=== PATIENT | female | born 1935 | race Caucasian/White ===

== ENCOUNTER 2020-05-17 19:44 | Observation (INO) | payer OTHER, SELFPAY ==
--- NOTE | ~2020-05-17 | XR_ITS ---
EXAMINATION: XR chest 1V portable DATE: 05/17/2020 20:32 INDICATION: Fall. TECHNIQUE: A single frontal view of the chest was obtained. COMPARISON: Chest 2 views 11/28/2016 FINDINGS: The chest demonstrates clear lungs without pneumonia, pleural effusion, or pneumothorax. Ca rdiomegaly is noted. IMPRESSION: 1. Cardiomegaly. Reviewed, dictated and finalized at location A. URCING CONSULTANT IMPRESSION: 1. Cardiomegaly.
--- NOTE | ~2020-05-17 | CT_ITS ---
EXAMINATION: CT brain wo con DATE: 05/17/2020 20:20 INDICATION: Fall. TECHNIQUE: Computed tomography (CT) of the head was performed without intravenous contrast. The mA wa s adjusted according to patient size. Iterative reconstruction technique was employed. The dose-lengt h product was 605.33 mGy-cm. COMPARISON: Head CT 01/08/2015 FINDINGS: There is an old infarct involving the left basal ganglia and internal capsule. There is no intracranial hemorrhage, acute infarction, or abnormal intracranial mass lesion. There is ex vacuo di latation of body of left lateral ventricle. The orbits are normal. There are mucous retention cysts i n the maxillary sinuses. There are trace mastoid effusions. IMPRESSION: 1. 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 Reviewed, dictated and finalized at location A. ING ROUTE DRIVER
--- NOTE | ~2020-05-17 | CT_ITS ---
EXAMINATION: CT pelvis wo con DATE: 05/17/2020 21:21 INDICATION: Left hip pain. TECHNIQUE: Computed tomography (CT) of the pelvis was performed without intravenous contrast. Automat ed exposure control and iterative reconstruction technique were employed. The dose-length product was 294.72 mGy-cm. COMPARISON: CT abdomen and pelvis 10/07/2011, pelvis and left hip radiographs 05/17/2020 FINDINGS: Stool distends the rectum. Bone alignment is normal. No fracture. There is severe lumbar sp ondylosis. There is moderate right hip osteoarthritis and severe left hip osteoarthritis. IMPRESSION: 1. Moderate right hip osteoarthritis and severe left hip osteoarthritis. Reviewed, dictated and finalized at location A. GE FISHERMAN
--- NOTE | ~2020-05-17 | CT_ITS ---
EXAMINATION: CT cervical spine wo con DATE: 05/17/2020 20:21 INDICATION: Fall. TECHNIQUE: Computed tomography (CT) of the cervical spine was performed without intravenous contrast. Automated exposure control and iterative reconstruction technique were employed. The dose-length pro duct was 371.72 mGy-cm. COMPARISON: CT cervical spine 01/01/2010 FINDINGS: There is 4 degrees dextrocurvature of cervicothoracic spine. Vertebral body heights are nor mal. There is mildly decreased disc height at C3-C4 and C5-C6. Osteopenia is noted. The following dis c levels are specifically discussed: C2-C3: There is no uncovertebral joint osteoarthritis. There is severe right and moderate left facet joint osteoarthritis. There is no neural foraminal stenosis. There is no central canal stenosis. C3-C4: There is severe bilateral uncovertebral joint osteoarthritis. There is severe bilateral facet joint osteoarthritis. There is mild bilateral neural foraminal stenosis. There is mild central canal stenosis. C4-C5: There is no uncovertebral joint osteoarthritis. There is moderate right and severe left facet joint osteoarthritis. There is mild left neural foraminal stenosis. There is no central canal stenosi s. C5-C6: There is no uncovertebral joint osteoarthritis. There is severe bilateral facet joint osteoart hritis. There is mild left neural foraminal stenosis. There is no central canal stenosis. C6-C7: There is no uncovertebral joint osteoarthritis. There is mild right and severe left facet join t osteoarthritis. There is mild left neural foraminal stenosis. There is no central canal stenosis. C7-T1: There is no uncovertebral joint osteoarthritis. There is severe bilateral facet joint osteoart hritis. There is mild bilateral neural foraminal stenosis. There is no central canal stenosis. IMPRESSION: 1. No fracture. 2. Mild cervical spondylosis. Reviewed, dictated and finalized at location A. LY PRACTICE PHYSICIAN ASSISTANT
--- NOTE | ~2020-05-17 | XR_ITS ---
EXAMINATION: XR hip LT 2V w AP pelvis DATE: 05/17/2020 20:32 INDICATION: Left hip pain. TECHNIQUE: An anteroposterior view of the pelvis and 2 views of left hip were obtained. COMPARISON: Pelvis radiograph 03/06/2011 FINDINGS: Bone alignment is normal. No fracture. There is mild right hip osteoarthritis and severe le ft hip osteoarthritis. There is severe lumbar spondylosis. IMPRESSION: 1. Mild right hip osteoarthritis and severe left hip osteoarthritis. Reviewed, dictated and finalized at location A. LETTER CARRIER
--- NOTE | 2020-05-17 19:45 | ECG_ITS ---
Measurements Intervals [place] Rate: 97 P: -66 HI: 127 QRS: 25 QRSD: 82 T: 0 QT: 368 QTc: 470 Interpretive Statements PROBABLY MULTIFOCA ATRIAL TACHYCARDIA (BASELINE ARTIFACT) ATRIAL PREMATURE COMPLEXES BORDERLINE T WAVE ABNORMALITY- ANT/INF LEADS BASELINE ARTIFACT- I, II, III, AVR, AVL, AVF, V1-V6 ABNORMAL ECG Electronically Signed On 05-17-2020 21:18:40 SR. MANAGER by Davion Baldwin D.O.
--- NOTE | 2020-05-17 19:46 | ED.GENADULT ---
HPI - General Adult General Chief complaint: Fall <Tarik Shoemaker DO - Last Filed: 05/17/20 22:48> Stated complaint: fall <Tarik Shoemaker DO - Last Filed: 05/17/20 22:48> Source: RN notes reviewed <Tarik Shoemaker DO - Last Filed: 05/17/20 22:48> History of Present Illness HPI narrative: Patient presents emergency department from home via EMS for fall patient states that this morning she went to go put her newspaper into the recycling bin and slipped and fell she states that time she had left hip pain is been unable to get up since that time her neighbors found her today and called EMS the patient denies any other trauma or injury other than skin tears over the left and right upper extremities she denies any fevers or chills chest pain shortness of breath or any other symptoms states she is unsure of her last tetanus shot <Tarik Shoemaker DO - Last Filed: 05/17/20 22:48> Related Data Allergies/adverse reactions: Allergies Allergy/AdvReac Type Severity Reaction Status Date / Time Quinolones Allergy Mild Verified 06/12/15 18:42 ciprofloxacin Allergy Unknown Verified 03/06/11 08:17 penicillin G Allergy Unknown Verified 03/06/11 08:17 Penicillins Allergy Unknown Verified 01/01/10 09:55 tetracycline Allergy Unknown Verified 10/22/14 09:14 <Tarik Shoemaker DO - Last Filed: 05/17/20 22:48> Review of Systems Review of Systems: Narrative: Gen.: Denies fevers or chills Eyes: Denies eye pain or visual change ENT: Denies congestion Respiratory: Denies shortness of breath or cough CV: Denies chest pain or palpitations GI: Denies abdominal pain nausea, emesis or diarrhea Musculoskeletal: See HPI Neuro: Denies numbness, tingling, weakness or focal weakness Skin: Reports skin tears Except as documented, all other systems reviewed and negative <Tarik Shoemaker DO - Last Filed: 05/17/20 22:48> PMFSH Past Medical History Medical History: Medical History (Updated 05/17/20 @ 22:48 by Tarik Shoemaker DO) Hypertension <Tarik Shoemaker DO - Last Filed: 05/17/20 22:48> Family History Family History: Family History (Updated 10/18/15 @ 23:19 by DOCTOR UNKNOWN) Father Cerebrovascular accident Patient's father is Mother Family history of malignant neoplasm of breast in first degree relative Patient's mother is <Tarik Shoemaker DO - Last Filed: 05/17/20 22:48> Social History Social History: Social History Smoking status: Current every day smoker Alcohol intake: current <Tarik Shoemaker DO - Last Filed: 05/17/20 22:48> Exam Narrative: Exam Narrative: APPEARANCE: No acute distress, nontoxic, resting in bed EYES: EOMI, PERRL HEENT: Normocephalic, atraumatic, OMM RESPIRATORY: No respiratory distress Clear to auscultation bilaterally with no rhonchi wheezing or rales. CARDIOVASCULAR: Regular rate and rhythm without murmurs rubs or gallops. ABDOMINAL: Soft, nontender, nondistended, no rebound or guarding MUSCULOSKELETAl: Moves all extremities. No clubbing, cyanosis or edema. Tender palpation of the left lateral and anterior hip pain with flexion of the hip no tenderness left knee or ankle no tenderness of the bilateral upper extremities in the right lower extremity bilateral dorsalis pedis pulse 2+, left lower extremity neurovascular intact NEURO: Awake and alert x 4. Following commands, speech normal, no focal deficits SKIN:: Warm, dry. Skin tears over the left lateral forearm right forearm and right dorsal hand with mild venous bleeding no foreign bodies no signs of infection 2.5 cm laceration of the right dorsal hand with mild venous bleeding no foreign body PSYCHIATRIC: Normal affect/mood, <Tarik Shoemaker DO - Last Filed: 05/17/20 22:48> Course Course Emergency Course: Patient continues to have left hip pain CT pelvis will be obtained at this
[2020-05-17 19:51] VITALS: BP 161/119; PULSE 108; RESP 24; TEMP 35.7; O2SAT 98
[2020-05-17 20:00] LABS: Basophils Percent Auto 0.1 % (0.2-1.2); Hemoglobin 12.7 g/dL (12.0-15.0); Immature Granulocyte Absolute 0.07 K/mm3 (0.00-0.031); Immature Granulocyte Percent A 0.5 % (0-0.5); Lymphocytes Absolute Auto 1.08 K/mm3 (0.9-3.2); Lymphocytes Percent Auto 7.1 % (18.3-44.2); Mean Corpuscular HGB Conc 33.4 g/dl (32-36); Mean Corpuscular Hemoglobin 27.4 pg (26-34); Mean Corpuscular Volume 82.1 fl (80-100); Mean Platelet Volume 10.8 fl (7.4-10.4); Monocytes Percent Auto 6.7 % (2.6-8.5); Neutrophils Absolute Auto 13.1 K/mm3 (1.3-6.7); Neutrophils Percent Auto 85.6 % (45.5-73.1); Platelet Count Result 207 k/mm3 (150-375); Red Blood Count 4.63 M/mm3 (4.2-5.4); Red Cell Distribution Width 13.7 % (11.5-14.5); White Blood Count 15.3 K/mm3 (4.5-10.0)
[2020-05-17 20:10] LABS: Partial Thromboplastin Time 29.2 SECONDS (22.3-36.8); Prothrombin Time 13.9 Seconds (11.1-14.7)
[2020-05-17 20:33] LABS: Alanine Aminotransferase 24 U/L (4-35); Albumin Level 4.1 g/dL (3.5-5.1); Alkaline Phosphatase 116 U/L (38-126); Anion Gap 8 mmol/L (8-16); Aspartate Amino Transferase 41 U/L (14-36); Bilirubin,Total 0.7 mg/dL (0.2-1.3); Blood Urea Nitrogen 28 mg/dL (7-17); Calcium 10.2 mg/dL (8.4-10.2); Carbon Dioxide 24 mmol/L (22-30); Chloride 107 mmol/L (98-107); Creatine Kinase 578 U/L (30-135); Estimated Glomerular Filt Rate 60; Glucose 125 mg/dL (65-105); Potassium 4.7 mmol/L (3.4-5.0); Sodium 139 mmol/L (137-145)
[2020-05-17] MEDS: TETANUS,DIPHTHERIA,AC PERTUSSIS ADULT (0.5 ML) BOOSTRIX IM (20:40)
[2020-05-17] MEDS: SODIUM CHLORIDE 0.9% IV 1,000 ML 999 ML IV CONT (20:52)
[2020-05-17 20:58] VITALS: BP 189/66; PULSE 82; RESP 22; O2SAT 99
[2020-05-17 21:19] LABS: Add Urine Microscopic? YES; Appearance Urine Cloudy (Clear); Bacteria Urine 1+ /hpf; Bilirubin Urine Negative (Negative); Blood Urine 2+ (Negative); Color Urine Yellow (Yellow); Glucose Urine UA Negative (Negative); Ketones Urine 1+ mg/dL (Negative); Leukocyte Esterase Ur 3+ LEU/UL (Negative); Nitrate Urine Negative (Negative); Protein Urine 3+ mg/dL (Negative); Specific Grav Ur 1.014 (1.001-1.035); Squamous Epithelial Cell Urine Rare /hpf (Few); Urobilinogen Urine Negative mg/dL (<2.0); WBC Urine >75 /hpf
[2020-05-17 22:17] VITALS: BP 173/90; PULSE 84; RESP 20; O2SAT 97
[2020-05-17 22:46] LABS: Lactic Acid Reflex 1.4 mmol/L (0.7-2.1)
[2020-05-17 23:21] VITALS: BP 153/88; PULSE 106; RESP 20; O2SAT 99
--- NOTE | 2020-05-17 23:30 | PM.IMHP ---
H&P: HPI History of Present Illness Date/Time: 05/17/20 23:30 Chief Complaint: Acute fall today in her garage and left hip pain+ Narrative: This is a pleasant 84 year old female who is known to live at home alone and presented to the hospital today after suffering a fall at home. Apparently she was trying to put her newspaper into the recycling bin in the garage and was leaning forward when she lost her balance and fell on her left side. She wasn't sure if she suffered and head trauma but she denies any loss of consciousness, tongue biting, loss of urine, or other focal neurological symptoms. EMS was called as the patient could not ambulate. She denies any recent fevers, chills, cough, shortness of breath, chest pain, palpitations, abdominal pain, nausea, vomiting, dysuria, hematuria, diarrhea, rectal bleeding, or LE swelling. The patient was evaluated in the ER today and urinalysis was grossly abnormal. She was complaining of left hip pain and CT pelvis did not demonstrate any acute fractures. No other complaints. Review of Systems Review of Systems: All systems reviewed & are unremarkable except as noted in HPI and below PMFSH Past Medical History Medical History Hypertension Family History Family History Father Cerebrovascular accident Patient's father is Mother Family history of malignant neoplasm of breast in first degree relative Patient's mother is Social History Social History Smoking status: Former smoker Alcohol intake: never Substance use: never Substance use type: does not use Gender identity (if verbalized by the patient): Female Spiritual care concerns: No Meds Home Medications and Allergies Home Medications Medication Instructions Recorded Confirmed Type metoprolol succinate 25 mg PO DAILY 05/17/20 05/17/20 History pravastatin 40 mg PO QPM 05/17/20 05/17/20 History Allergies Allergy/AdvReac Type Severity Reaction Status Date / Time Quinolones Allergy Mild unsure Verified 05/17/20 23:55 ciprofloxacin Allergy Unknown unsure Verified 05/17/20 23:55 penicillin G Allergy Unknown unsure Verified 05/17/20 23:55 Penicillins Allergy Unknown unsure Verified 05/17/20 23:55 tetracycline Allergy Unknown unsure Verified 05/17/20 23:55 Vital Signs Vital Signs - 24 hr 05/17/20 19:51 05/17/20 20:58 05/17/20 22:17 Temperature 35.7 C L Pulse Rate 108 H 82 84 Respiratory Rate 24 H 22 H 20 Blood Pressure 161/119 H 189/66 H 173/90 H Pulse Oximetry 98 99 97 05/17/20 23:21 Temperature Pulse Rate 106 H Respiratory Rate 20 Blood Pressure 153/88 H Pulse Oximetry 99 Exam Const: General: cooperative, no acute distress, alert and awake Nutritional Appearance: well nourished Orientation/consciousness: patient oriented x3 HENMT: Head: normal to inspection General nose exam: Normal external nose present Face and sinus: normal facial exam Mouth: Yes Normal oral and palatal mucosa present and Yes oropharynx normal Eyes: Periorbital: periorbital findings abnormal (ecchymosis) right Pupils: Equal, round and reactive pupils present EOM: EOMs intact bilaterally Neck: Neck: supple and no JVD Thyroid: thyroid normal Lymphatic: lymphadenopathy not noted Resp: Effort & Inspection: normal respiratory effort Auscultation: clear to auscultation bilaterally Cardio: Rate: regular rate Rhythm: regular rhythm Heart sounds: no murmurs GI: Inspection: normal to inspection Auscultation: normal bowel sounds Skin: General skin exam: normal color and no rashes or lesions noted Neuro: General: patient oriented x3 Cranial nerves: Yes CN's II-XII intact bilaterally and Yes Equal, round and reactive pupils present Speech: normal speech Motor exam (neuro): 5/5 motor strength present throug
--- NOTE | 2020-05-17 23:43 | ADMGEN ---
This patient, Janis Whittington, was admitted to Medical Room 255-. Patient/family oriented to hospital policies and general routines including ID bracelet, bed and alarms, visiting hours, pain management, procedures, bathroom and other care routines, personal items, smoking policy, room service/diet, and visiting hours. Information on how to activate the Rapid Response Team has been discussed. Patient/Family are encouraged to report perceived risks to care and to ask questions if they do not understand what they are told or what they should do.
[2020-05-18] VITALS (7 sets, daily range): BP systolic 134–179; BP diastolic 47–72; PULSE 68–89; RESP 18–20; TEMP 36.2–36.7; O2SAT 95–98; BMI 26.3
[2020-05-18] MEDS: SODIUM CHLORIDE 0.9% IV 1,000 ML 125 ML IV CONT ×2 (00:34→08:20)
[2020-05-18 05:27] LABS: Basophils Percent Auto 0.3 % (0.2-1.2); Hematocrit 34.1 % (37.0-47.0); Hemoglobin 11.2 g/dL (12.0-15.0); Immature Granulocyte Absolute 0.02 K/mm3 (0.00-0.031); Immature Granulocyte Percent A 0.2 % (0-0.5); Lymphocytes Absolute Auto 1.88 K/mm3 (0.9-3.2); Lymphocytes Percent Auto 19.3 % (18.3-44.2); Mean Corpuscular HGB Conc 32.8 g/dl (32-36); Mean Corpuscular Hemoglobin 26.7 pg (26-34); Mean Corpuscular Volume 81.4 fl (80-100); Mean Platelet Volume 10.8 fl (7.4-10.4); Monocytes Absolute Auto 0.8 K/mm3 (0.1-0.6); Monocytes Percent Auto 8.4 % (2.6-8.5); Neutrophils Percent Auto 71.8 % (45.5-73.1); Platelet Count Result 159 k/mm3 (150-375); Red Blood Count 4.19 M/mm3 (4.2-5.4); Red Cell Distribution Width 13.8 % (11.5-14.5); White Blood Count 9.7 K/mm3 (4.5-10.0)
[2020-05-18 05:45] LABS: Anion Gap 5 mmol/L (8-16); Blood Urea Nitrogen 26 mg/dL (7-17); Carbon Dioxide 24 mmol/L (22-30); Chloride 108 mmol/L (98-107); Estimated CRCL calculation 37 ml/min; Estimated Glomerular Filt Rate 60; Glucose 106 mg/dL (65-105); Sodium 137 mmol/L (137-145)
[2020-05-18] MEDS: METOPROLOL SUCCINATE EXT REL 25 MG TABCR PO (08:53)
--- NOTE | 2020-05-18 13:13 | PM.IMPN ---
Progress Note: A&P Assessment and Plan (1) Acute UTI: Code(s): N39.0 - Urinary tract infection, site not specified Status: Acute Assessment and Plan: Urinalysis abnormal on presentation with 3+ leukocyte esterase. She denies urinary symptoms. She has remained afebrile. leukocytosis has resolved. continue IV Rocephin urine culture is pending. Await results and tailor antibiotics accordingly continue gentle IV fluids (2) Sepsis: Qualifiers: Sepsis acute organ dysfunction status: without acute organ dysfunction Sepsis type: sepsis due to unspecified organism Qualified Code(s): A41.9 - Sepsis, unspecified organism Code(s): A41.9 - Sepsis, unspecified organism Status: Acute Assessment and Plan: She met criteria for sepsis on admission with leukocytosis, tachypnea, and tachycardia. BP has been stable. Lactic acid 1.4. Source of sepsis felt to be secondary to urinary tract infection. Sepsis has resolved. Continue IV Rocephin as above blood cultures pending continue gentle IV fluids monitor vital signs (3) Fall: Qualifiers: Encounter type: initial encounter Qualified Code(s): W19.XXXA - Unspecified fall, initial encounter Code(s): W19.XXXA - Unspecified fall, initial encounter Status: Acute Assessment and Plan: Patient had a mechanical fall at home in which she lost her balance and fell on her left side. She was complaining of pain in her hip and knee. She did not believe she hit her head, and head CT was negative for any acute findings. Cervical spine CT negative for fracture. Hip and pelvis x-ray negative for fracture, and pelvis CT demonstrated osteoarthritis with no acute findings. she had a 2.5 cm laceration of her right hand which was repaired with 4 nylon sutures in the ED. Currently denies hip pain and only endorses mild knee pain. Fall precautions in place. Appreciate PT/OT eval. Sutures should be removed in 10-14 days. Acetaminophen available as needed for pain. Supportive care including lidocaine patch, ice/heat as needed. (4) Hypertension: Qualifiers: Hypertension type: unspecified Qualified Code(s): I10 - Essential (primary) hypertension Code(s): I10 - Essential (primary) hypertension Status: Chronic Assessment and Plan: BP reviewed and is elevated above target, likely related to pain. Last BP 155/72. continue metoprolol IV hydralazine available as needed monitor blood pressure trends and adjust medication regimen as needed Additional Plan Patient had one episode of loose stool today. Likelyrelated to antibiotic therapy. Added probiotic and will monitor stool patterns. Based on consistency of stool and lack of clinical signs/symptoms, do not feel that further stool testing is warranted at this time. C. diff unlikely. Discussed with care coordination. Patient and family hoping for discharge home with home health. Family plans to set up life-alert for patient. Hopeful discharge tomorrow pending results of urine culture. Subjective Date/time seen: 05/18/20 13:13 Interval history: Date of service: 05/18/2020 Janis Whittington is an 84-year-old female with a history of hypertension who is seen in follow-up for suspected UTI and after having a fall at home. She is doing okay today. She is complaining of pain in her left knee. She denies any urinary symptoms. She denies fevers or chills. Denies nausea, vomiting, or abdominal pain. No dizziness, or lightheadedness. She has been eating well. She did have some diarrhea today. She has not been out of bed to attempt ambulation yet today but she does report feeling weak. Denies shortness of breath, cough, chest pain, or palpitations. She has no additional concerns at this time. Review of Systems Review of Systems: All systems reviewed & are unremarkable except as noted in HPI and below Exam Narrati
[2020-05-18] MEDS: SODIUM CHLORIDE 0.9% IV 1,000 ML 75 ML IV CONT (17:34)
[2020-05-18] MEDS: PRAVASTATIN SODIUM 20 MG TABLET 40 MG PO (17:47)
[2020-05-18] MEDS: SACCHAROMYCES BOULARDII 250 MG CAPSULE PO (17:47)
[2020-05-19 05:49] LABS: Anion Gap 5 mmol/L (8-16); Blood Urea Nitrogen 17 mg/dL (7-17); Calcium 8.8 mg/dL (8.4-10.2); Carbon Dioxide 20 mmol/L (22-30); Chloride 112 mmol/L (98-107); Estimated CRCL calculation 42 ml/min; Estimated Glomerular Filt Rate > 60; Glucose 121 mg/dL (65-105); Potassium 3.9 mmol/L (3.4-5.0); Sodium 137 mmol/L (137-145)
[2020-05-19 06:00] VITALS: BP 135/58; PULSE 66; RESP 16; TEMP 36.7; O2SAT 98
[2020-05-19] MEDS: SODIUM CHLORIDE 0.9% IV 1,000 ML 75 ML IV CONT (06:23)
[2020-05-19 07:07] LABS: Hematocrit 32.7 % (37.0-47.0); Hemoglobin 10.8 g/dL (12.0-15.0); Mean Corpuscular Hemoglobin 27.3 pg (26-34); Mean Corpuscular Volume 82.8 fl (80-100); Mean Platelet Volume 10.6 fl (7.4-10.4); Platelet Count Result 138 k/mm3 (150-375); Red Blood Count 3.95 M/mm3 (4.2-5.4); White Blood Count 8.2 K/mm3 (4.5-10.0)
[2020-05-19 08:51] VITALS: PULSE 70; RESP 16; O2SAT 98
[2020-05-19] MEDS: SACCHAROMYCES BOULARDII 250 MG CAPSULE PO (08:51)
[2020-05-19] MEDS: METOPROLOL SUCCINATE EXT REL 25 MG TABCR PO (08:51)
--- NOTE | 2020-05-19 11:04 | PM.DS ---
DS: Admitting Diagnosis Admitting Diagnosis Admitting Diagnosis: Fall, UTI DS: Discharge Diagnosis Discharge Diagnosis (1) Acute UTI: Code(s): N39.0 - Urinary tract infection, site not specified Status: Acute Assessment and Plan: Date of Admission 05/17/20 Date of Discharge/DOS 05/19/20 Ms. Whittington is an 84 yo F who presented to the ED for evaluation of left hip pain after a fall at home. She described she was carrying a box in her garage when she lost her balance and fell. She was unsure of any head injury or loss of consciousness. She did sustain a laceration to right hand which was closed with 4 sutures in the ED. 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 CT C spine, CT pelvis, XR pelvis/hips show no acute fractures. She was treated for UTI with IV ceftriaxone and discharged with oral bactrim to complete the course (limited options based on sensitivity report and patient allergies). She was hydrated with IV fluids. She worked with PT/OT and was felt to be a good candidate to continue therapy with home health. She was hemodynamically stable for discharge on 05/19/20 with instructions to follow up with PCP. She was also educated to f/u with PCP or return to ED in 7-10 days for suture removal. (2) Sepsis: Qualifiers: Sepsis acute organ dysfunction status: without acute organ dysfunction Sepsis type: sepsis due to unspecified organism Qualified Code(s): A41.9 - Sepsis, unspecified organism Code(s): A41.9 - Sepsis, unspecified organism Status: Suspected Assessment and Plan: Source of sepsis appears to be urinary. Continue abx as above. She is improved and hemodynamically stable. (3) Fall: Qualifiers: Encounter type: initial encounter Qualified Code(s): W19.XXXA - Unspecified fall, initial encounter Code(s): W19.XXXA - Unspecified fall, initial encounter Status: Acute Assessment and Plan: See above. (4) Contusion, hip: Qualifiers: Encounter type: initial encounter Laterality: left Qualified Code(s): S70.02XA - Contusion of left hip, initial encounter Code(s): S70.00XA - Contusion of unspecified hip, initial encounter Status: Acute Assessment and Plan: Pain control as needed. (5) Hypertension: Qualifiers: Hypertension type: unspecified Qualified Code(s): I10 - Essential (primary) hypertension Code(s): I10 - Essential (primary) hypertension Status: Chronic Assessment and Plan: Elevated suspected secondary to pain, improved prior to discharge. Continue home antihypertensives. DS: Summary Hospital Course Hospital Course: See above. Time Spent with Patient Time attestation: Total time spent providing and/or coordinating discharge services: 35 minutes Exam Narrative: Exam Narrative: Ms. Whittington is A well-nourished, well-appearing 84-year-old female who is sitting up in bedside chair. she appears comfortable and is in NARD. Neuro: awake, alert and oriented x4, speech clear, no focal neuro deficits noted HEENMT: normocephalic, atraumatic, EOMI, sclerae anicteric, moist oral mucosa, tongue midline, nares patent Neck: supple, no lymphadenopathy Respiratory: clear to auscultation bilaterally, nonlabored breathing Cardio: regular rate, regular rhythm with S1-S2 Abdomen: nondistended, normoactive bowel sounds, soft, nontender to palpation, no rigidity or guarding : Extremities: no edema, erythema, cyanosis, clubbing, or tenderness to palpation, DP pulses 2+ bilaterally Skin: left knee with ecchymosis and mild edema, scattered ecchymoses of upper extremities. Right hand is wrapped with dressing c/d/i. No rashes or lesions, warm and dry
--- NOTE | 2020-05-31 08:45 | PC.NURSE ---
Blood cx are negative
== END 2020-05-19 16:37 | disposition home health service (06) ==
LOC: ANHED 21:02 → ANH2MED 22:35
PROVIDERS: Physician Assistant; Admitting Provider Family Medicine; Emergency Provider Emergency Medicine; PCP Anesthesiology; Visit Provider Physician Assistant
DX: N39.0 Urinary tract infection, site not specified (principal); S70.02XA Contusion of left hip, initial encounter; S61.411A Laceration without foreign body of right hand, initial encounter; W19.XXXA Unspecified fall, initial encounter; I10 Essential (primary) hypertension; Z87.891 Personal history of nicotine dependence; Z86.73 Personal history of transient ischemic attack (TIA), and cerebral infarction without residual deficits
CPT/HCPCS: 12001; 36415; 70450; 71045; 72125; 72192; 73502; 80048; 80053; 81001; 82550; 83605; 85025; 85027; 85610; 85730; 87040; 87077; 87086; 87088; 87186; 90471; 90715; 93005; 96361; 96365; 96366; 97116; 97161; 97165; 97535; 99285; A9270; G0378; J0696; J7030

== ENCOUNTER 2020-12-30 10:09 | Inpatient (IN) | payer OTHER, SELFPAY ==
--- NOTE | ~2020-12-30 | CT_ITS ---
EXAMINATION: CT lumbar spine wo con DATE: 12/30/2020 11:32 INDICATION: Low back pain post fall TECHNIQUE: Computed tomography (CT) of the lumbar spine was performed without intravenous contrast. A utomated exposure control and iterative reconstruction technique were employed. The dose-length produ ct was 815.32 mGy-cm. COMPARISON: None FINDINGS: Alignment is normal. Vertebral body heights are normal. No fracture. Moderate disc height loss at L3- L4 and L4-L5. There is calcified atherosclerosis of the aorta and many of the other arteries. The fol lowing disc levels are specifically discussed: T11-T12: The disc does not extend beyond the endplate margin. There is mild bilateral facet joint ost eoarthritis. There is no neural foraminal stenosis. There is no central canal stenosis. T12-L1: The disc does not extend beyond the endplate margin. There is moderate bilateral facet joint osteoarthritis. There is no neural foraminal stenosis. There is no central canal stenosis. L1-L2: Disc is bulging with small right paracentral endplate osteophyte. There is mild bilateral face t joint osteoarthritis. There is mild right neural foraminal stenosis. There is mild central canal st enosis. L2-L3: Disc is mildly bulging. There is mild bilateral facet joint osteoarthritis. There is minimal b ilateral neural foraminal stenosis. There is mild central canal stenosis. L3-L4: Disc is bulging. There is mild left and moderate right facet joint osteoarthritis. There is mo derate bilateral neural foraminal stenosis. There is mild central canal stenosis. L4-L5: Disc is bulging. There is moderate bilateral facet joint osteoarthritis. There is moderate osvaldo ateral neural foraminal stenosis. There is mild central canal stenosis. L5-S1: Disc is mildly bulging. There is moderate right and severe left facet joint osteoarthritis. Th ere is moderate right and moderate to severe left neural foraminal stenosis. There is no central arthur l stenosis. IMPRESSION: 1. Moderate lumbar spondylosis. No acute osseous abnormality. Reviewed, dictated and finalized at location A.
--- NOTE | ~2020-12-30 | XR_ITS ---
XR hip BI 2V w AP pelvis DATE: 12/30/2020 11:08 INDICATION: Fall. Pelvic and bilateral hip pain TECHNIQUE: AP pelvis. AP and lateral views of each hip. COMPARISON: May 17, 2020 AP pelvis and left hip FINDINGS: There is degenerative disc disease in the included lower lumbar and lumbosacral area. Normal alignment at the pubic symphysis and sacral iliac joints. No pelvic fracture or bone destruction is detected. There is mild right and severe left hip osteoarthritis. No fracture or dislocation, avascular necrosis or bone destruction of either hip is detected. 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
--- NOTE | ~2020-12-30 | XR_ITS ---
XR chest 2V DATE: 12/30/2020 11:08 INDICATION: Pain after fall TECHNIQUE: AP and lateral views COMPARISON: May 17, 2020 AP chest FINDINGS: Cardiomegaly. No hilar or mediastinal enlargement. Moderate elevation of right diaphragm. No pulmonary infiltrate or consolidation, pleural effusion or pulmonary vascular congestion or pneumothorax. Diffuse osteopenia. IMPRESSION: Moderate elevation right diaphragm; no active pulmonary disease Reviewed, dictated and finalized at location B.
--- NOTE | ~2020-12-30 | CT_ITS ---
EXAMINATION: CT brain wo con DATE: 12/30/2020 11:32 INDICATION: Altered mental state, confusion following a fall last night. TECHNIQUE: Computed tomography (CT) of the head was performed without intravenous contrast. The mA wa s adjusted according to patient size. Iterative reconstruction technique was employed. Exam dose: 60 5.33 mGy-cm total exam DLP. COMPARISON: May 17, 2020 CT brain FINDINGS: There is prominent central and cortical cerebral and cerebellar atrophy. Old lacunar infarct of the left basal ganglia. Bilateral carotid siphon internal carotid artery calcification and basilar and bilateral vertebral ar isabelle calcification. There is nonspecific diminished attenuation of the cerebral white matter, likely due to chronic small vessel ischemic changes. No intracranial mass lesion or hemorrhage or recent cerebrovascular accident is detected. No midline shift or mass effect. No subdural or epidural hematoma. Approximately 1.2 x 2.6 cm polypoid soft tissue density of the lower lateral right maxillary sinus. T here is mild lower anterior left maxillary sinus focal soft tissue thickening. The paranasal sinuses and mastoid air cells are otherwise unremarkable. No fracture or bone destruction of the cranial vault. IMPRESSION: Chronic lacunar infarct of left basal ganglia Cerebral atherosclerosis and chronic small vessel ischemic changes of the cerebral white matter Prominent central and cortical cerebral and cerebellar atrophy No acute intracranial finding or skull fracture Reviewed, dictated and finalized at Location A. Reviewed, dictated and finalized at location B. IMPRESSION: Chronic lacunar infarct of left basal ganglia Cerebral atherosclerosis and chronic small vessel ischemic changes of the cereb ral white matter Prominent central and cortical cerebral and cerebellar atrophy No acute intracranial finding or skull fracture
--- NOTE | ~2020-12-30 | CT_ITS ---
EXAMINATION: CT cervical spine wo con EXAM DATE: 12/30/2020 11:32 INDICATION: Fall, altered mental status. Confusion. TECHNIQUE: Spiral CT of the cervical spine was performed without contrast. Axial images were reviewe d. Coronal and sagittal reformatted images cervical spine were also reviewed. The dose-length produc t (DLP) for this examination was 183.62 mGy-cm. The exposure was tailored according to patient size (auto mA exposure control), and iterative reconstruction (ASIR) was used as additional dose reduction technique. There is no prior study for comparison. FINDINGS: There is no evidence of acute cervical fracture. The odontoid process is intact. Pre-dens space is normal. Prevertebral soft tissue is normal. There are no soft tissue abnormalities identi fied. The vertebral bodies are aligned in the AP dimension. There is moderate to severe left-sided f acet arthropathy. The vertebral bodies are aligned. IMPRESSION: 1. No acute cervical findings. Reviewed, dictated and finalized at location A.
[2020-12-30 09:50] VITALS: BP 143/75; PULSE 107; RESP 24; TEMP 36.7; O2SAT 97
--- NOTE | 2020-12-30 10:11 | ECG_ITS ---
Measurements Intervals [place] Rate: 62 P: 52 VA: 142 QRS: -9 QRSD: 80 T: 0 QT: 407 QTc: 416 Interpretive Statements SINUS RHYTHM POSSIBLE LEFT ATRIAL ENLARGEMENT BORDERLINE T WAVE ABNORMALITY- ANTEROLATERAL LEADS BASELINE ARTIFACT- I, II, III, AVR, AVL, AVF, V1-V6 BORDERLINE ECG Electronically Signed On 12-30-2020 14:39:49 CDT by Davion Baldwin D.O.
--- NOTE | 2020-12-30 10:29 | ED.AMS ---
HPI - Altered Mental Status General Chief Complaint: Altered Mental Status <Tanya Luu PA-C - Last Filed: 12/30/20 15:22> Stated Complaint: increased weakness/confusion <Tanya Luu PA-C - Last Filed: 12/30/20 15:22> Time Seen by Provider: 12/30/20 10:12 <LAMAR Dwyer Last Filed: 12/30/20 15:22> Source: patient and family <LAMAR Dwyer Last Filed: 12/30/20 15:22> Mode of arrival: EMS <LAMAR Dwyer Last Filed: 12/30/20 15:22> Limitations: altered mental status <LAMAR Dwyer Last Filed: 12/30/20 15:22> History of Present Illness HPI narrative: This is a 85 year old female that presents to the ER for altered mental status. Daughter reports patient had a fall yesterday. She had called and was unable to get ahold of her. So she went over to her house around 8pm. She found her lying on the floor in her bedroom. Unsure when she had fallen/how long she was on the floor that day. Patient did not want to be transported to the ER at that time. Daughter got her in bed. Reports this morning she went back to check on her and she was still in bed which concerned her. She appeared to be more confused than usual. She also thought that maybe this morning the left side of her face looked like it was drooping. She has been complaining of some burning with urination. She also was complaining of low back pain after her fall last night. Patient is not able to provide much history. She does not remember falling or if she hit her head. She does know where she is right now. Her only complaint is low back pain currently. Denies fever. <LAAMR Dwyer Last Filed: 12/30/20 15:22> Related Data Home Medications: Home Medications Medication Instructions Recorded Confirmed metoprolol succinate 25 mg PO DAILY 05/17/20 05/17/20 pravastatin 40 mg PO QPM 05/17/20 05/17/20 <LAMAR Dwyer Last Filed: 12/30/20 15:22> Allergies/Adverse Reactions: Allergies Allergy/AdvReac Type Severity Reaction Status Date / Time Quinolones Allergy Mild unsure Verified 12/30/20 13:21 ciprofloxacin Allergy Unknown unsure Verified 12/30/20 13:21 penicillin G Allergy Unknown unsure Verified 12/30/20 13:21 Penicillins Allergy Unknown unsure Verified 12/30/20 13:21 tetracycline Allergy Unknown unsure Verified 12/30/20 13:21 <Tanya Luu PA-C - Last Filed: 12/30/20 15:22> Review of Systems Review of Systems: ROS unobtainable: Yes unobtainable due to mental status <Tanya Luu PA-C - Last Filed: 12/30/20 15:22> [facility] Past Medical History Medical History: Medical History (Updated 12/30/20 @ 15:19 by Tanya Luu PA-C) History of hypertension Hypertension <Tanya Luu PA-C - Last Filed: 12/30/20 15:22> Family History Family History: Family History Father Cerebrovascular accident Patient's father is Mother Family history of malignant neoplasm of breast in first degree relative Patient's mother is <Tanya Luu PA-C - Last Filed: 12/30/20 15:22> Social History Social History: Social History Smoking status: Former smoker Alcohol intake: never Substance use: never Substance use type: does not use Gender identity (if verbalized by the patient): Female Spiritual care concerns: No <Tanya uLu PA-C - Last Filed: 12/30/20 15:22> Exam Narrative: GENERAL: Elderly, well-nourished, and in no acute distress. HEAD: Normocephalic, atraumatic. EYES: PERRLA and EOMI. ENT: Nares clear, no rhinorrhea or epistaxis. Mucous membranes moist. Oropharynx without tonsillar hypertrophy exudate or other lesions. Bilateral TMs pearly díaz non-bulging NECK: Supple. No adenopathy or masses. CHEST: Clear to auscultation. No respiratory distress. No wheezes rales
--- NOTE | 2020-12-30 11:08 | PC.NURSE ---
Pt in imaging at this time.
[2020-12-30 11:30] LABS: Add Urine Microscopic? YES; Appearance Urine Turbid (Clear); Bacteria Urine 3+ /hpf; Bilirubin Urine Negative (Negative); Blood Urine 3+ (Negative); Color Urine Yellow (Yellow); Glucose Urine UA Negative (Negative); Ketones Urine Negative (Negative); Leukocyte Esterase Ur 3+ LEU/UL (Negative); Mucus Urine Heavy /lpf; Nitrate Urine Negative (Negative); Protein Urine 3+ mg/dL (Negative); RBC Urine >75 /hpf (0-2); Specific Grav Ur 1.016 (1.001-1.035); Squamous Epithelial Cell Urine Moderate /hpf (Few); Urobilinogen Urine Negative mg/dL (<2.0); WBC Clumps Urine Present /HPF; WBC Urine >75 /hpf
--- NOTE | 2020-12-30 11:50 | PC.NURSE ---
C-collar removed per ERP VRBO.
[2020-12-30] MEDS: SODIUM CHLORIDE 0.9% IV 500 ML 999 ML IV CONT ×2 (11:51→13:36)
[2020-12-30 13:20] VITALS: BP 154/78; PULSE 71; RESP 19; O2SAT 99
[2020-12-30 13:49] LABS: Creatine Kinase 207 U/L (30-135); Lactic Acid Reflex 1.2 mmol/L (0.7-2.1)
[2020-12-30 13:54] LABS: Alanine Aminotransferase 18 U/L (4-35); Alkaline Phosphatase 102 U/L (38-126); Anion Gap 7 mmol/L (8-16); Aspartate Amino Transferase 32 U/L (14-36); Bilirubin,Total 0.8 mg/dL (0.2-1.3); Blood Urea Nitrogen 20 mg/dL (7-17); CRP 1.8 mg/dL (<1.0); Calcium 10.2 mg/dL (8.4-10.2); Carbon Dioxide 28 mmol/L (22-30); Chloride 104 mmol/L (98-107); Estimated Glomerular Filt Rate > 60; Glucose 106 mg/dL (65-110); Potassium 4.3 mmol/L (3.4-5.0); Sodium 139 mmol/L (137-145)
--- NOTE | 2020-12-30 14:39 | PC.NURSE ---
Informed GEO Luu that pt has an allergy to Penicillin( Rocephin was ordered for pt). GEO Luu states that pt has had Rocephin in past and that it is ok to give.
[2020-12-30 14:51] LABS: Basophils Percent Auto 0.2 % (0.2-1.2); Eosinophils Percent Auto 0.1 % (0-4.4); Immature Granulocyte Absolute 0.03 K/mm3 (0.00-0.031); Immature Granulocyte Percent A 0.4 % (0-0.5); Lymphocytes Absolute Auto 1.63 K/mm3 (0.9-3.2); Mean Corpuscular HGB Conc 31.7 g/dl (32-36); Mean Corpuscular Hemoglobin 26.3 pg (26-34); Mean Platelet Volume 9.9 fl (7.4-10.4); Monocytes Absolute Auto 0.4 K/mm3 (0.1-0.6); Monocytes Percent Auto 4.8 % (2.6-8.5); Neutrophils Absolute Auto 6.1 K/mm3 (1.3-6.7); Neutrophils Percent Auto 74.5 % (45.5-73.1); Platelet Count Result 198 k/mm3 (150-375); Red Blood Count 4.94 M/mm3 (4.2-5.4); Red Cell Distribution Width 14.3 % (11.5-14.5); White Blood Count 8.2 K/mm3 (4.5-10.0)
[2020-12-30 16:30] VITALS: BMI 28.0
--- NOTE | 2020-12-30 16:30 | PC.NURSE ---
This patient, Janis Whittington, was admitted to 3 [facility] Surg Room 323-01. Patient/family oriented to hospital policies and general routines including ID bracelet, bed and alarms, visiting hours, pain management, procedures, bathroom and other care routines, personal items, smoking policy, room service/diet, and visiting hours.Report received from Bria PORTILLO Information on how to activate the Rapid Response Team has been discussed. Patient/Family are encouraged to report perceived risks to care and to ask questions if they do not understand what they are told or what they should do.
[2020-12-30 17:58] VITALS: BP 142/74; PULSE 73; RESP 16; TEMP 36.6; O2SAT 95
[2020-12-30 22:00] VITALS: BP 173/88; PULSE 120; RESP 20; TEMP 36.6; O2SAT 94
--- NOTE | 2020-12-30 23:25 | PM.IMHP ---
H&P: HPI History of Present Illness Date/Time: 12/30/20 23:25 this is a 85-year-old female patient who presented to the emergency room with altered mental status. The patient is also hard of hearing. The daughter reported to the emergency room that the patient had fallen yesterday. She had called the patient and was unable to get a hold of her so she went over house around 8:00 p.m.. She found the patient lying on the floor in her bedroom. She will was not sure how long the patient had been on the floor that day. The patient did not want to go to the emergency room so the daughter was able to get her back in bed. The daughter went back to check on her this morning and the patient was still in bed and this concerned the daughter. The patient became more confused than normal. The daughter also thought that maybe the patient's face was drooping. The patient was complaining of having some burning urination and some lower back pain when she fell. The patient was a poor historian. But she does remember hitting her head she was not sure where she was when she came to the emergency room. Patient's urine was turbid she had 3+ leukocyte esterase. RBCs greater than 75 WBC is greater than 75 although there were moderate amount of squamous cells. Urine bacteria 3+. Patient's creatinine kinase was stool 7 and C reactive protein 1.8. The patient was started on IV fluids and ceftriaxone. The patient is being admitted to observation status on the date of service of 12/30/2020. Chief Complaint: Altered mental status and UTI Review of Systems Review of Systems: The patient was answering some questions but very hard of hearing. All systems reviewed & are unremarkable except as noted in HPI and below Constitutional: Constitutional: Reports as per HPI and Reports no additional constitutional complaints Eyes: Eyes: Reports as per HPI and Reports no additional eye complaints ENT: Reports system reviewed and no additional complaints, except as documented and Reports Normal hearing present Cardiovascular: Cardiovascular: Reports no additional cardiovascular complaints Respiratory: Respiratory: Reports no additional respiratory complaints and Reports no additional respiratory complaints Gastrointestinal: Gastrointestinal: Reports as per HPI and Reports no additional gastrointestinal complaints Musculoskeletal: Musculoskeletal: Reports no additional musculoskeletal complaints Integumentary/Breasts: Skin/Breast: Reports system reviewed and no additional complaints, except as docu and Reports as per HPI Neurologic: Reports system reviewed and no additional complaints, except as documented, Reports as per HPI and Reports Normal hearing present Psychiatric: Psychiatric: Reports no additional psychiatric complaints and Reports as per HPI Endocrine: Endocrine: Reports no additional endocrine complaints Hematologic/Lymphatic: Hematologic/Lymphatic: Reports no additional hematologic/lymphatic complaints Allergic/Immunologic: Allergic/Immunologic: Reports no additional allergic/immunologic complaints [facility] Past Medical History Medical History (Updated 12/30/20 @ 23:38 by Brandie Nathan NP) History of CVA (cerebrovascular accident) Per CT scanChronic lacunar infarct of left basal ganglia Cerebral atherosclerosis and chronic small vessel ischemic changes of the cerebral white matter Prominent central and cortical cerebral and cerebellar atrophy No acute intracranial finding or skull fracture 12/30/2020 History of hypertension Hyperlipidemia Hypertension Surgical History Surgical History (Updated 12/30/20 @ 23:30 by Brandie Nathan NP) H/O: hysterectomy Hx of cholecystectomy Family History Family History Father Patient's father is Cerebrovascular accident Mother Patient's mother is Family history of malignant neoplasm of breast in first degree
[2020-12-31] MEDS: SODIUM CHLORIDE 0.9% IV 1,000 ML 100 ML IV CONT ×2 (00:25→11:55)
[2020-12-31 06:00] VITALS: BP 140/65; PULSE 84; RESP 20; TEMP 36.8; O2SAT 95
[2020-12-31 06:47] LABS: Basophils Percent Auto 0.2 % (0.2-1.2); Hematocrit 37.6 % (37.0-47.0); Hemoglobin 12.2 g/dL (12.0-15.0); Immature Granulocyte Absolute 0.06 K/mm3 (0.00-0.031); Immature Granulocyte Percent A 0.5 % (0-0.5); Lactic Acid Reflex 0.8 mmol/L (0.7-2.1); Lymphocytes Absolute Auto 1.82 K/mm3 (0.9-3.2); Lymphocytes Percent Auto 13.9 % (18.3-44.2); Mean Corpuscular HGB Conc 32.4 g/dl (32-36); Mean Corpuscular Volume 80.2 fl (80-100); Mean Platelet Volume 10.8 fl (7.4-10.4); Monocytes Absolute Auto 0.6 K/mm3 (0.1-0.6); Monocytes Percent Auto 4.3 % (2.6-8.5); Neutrophils Absolute Auto 10.6 K/mm3 (1.3-6.7); Neutrophils Percent Auto 81.1 % (45.5-73.1); Platelet Count Result 211 k/mm3 (150-375); Red Blood Count 4.69 M/mm3 (4.2-5.4); Red Cell Distribution Width 14.4 % (11.5-14.5); White Blood Count 13.1 K/mm3 (4.5-10.0)
[2020-12-31 06:51] LABS: Alanine Aminotransferase 15 U/L (4-35); Albumin Level 3.4 g/dL (3.5-5.1); Alkaline Phosphatase 94 U/L (38-126); Anion Gap 8 mmol/L (8-16); Aspartate Amino Transferase 25 U/L (14-36); Bilirubin,Total 0.5 mg/dL (0.2-1.3); Blood Urea Nitrogen 20 mg/dL (7-17); CRP 2.4 mg/dL (<1.0); Calcium 9.6 mg/dL (8.4-10.2); Carbon Dioxide 23 mmol/L (22-30); Chloride 104 mmol/L (98-107); Creatine Kinase 88 U/L (30-135); Estimated CRCL calculation 47 ml/min; Estimated Glomerular Filt Rate > 60; Glucose 130 mg/dL (65-110); Lactate Dehydrogenase 389 U/L (313-618); Lipase 37 U/L (23-300); Magnesium 1.5 mg/dL (1.6-2.3); Potassium 3.7 mmol/L (3.4-5.0); Sodium 135 mmol/L (137-145)
[2020-12-31 09:10] VITALS: PULSE 88
[2020-12-31] MEDS: METOPROLOL SUCCINATE EXT REL 25 MG TABCR PO (09:10)
[2020-12-31] MEDS: MAGNESIUM SULF 2 GM/WATER 50ML 2 GM/50 ML BAG IVPB (11:54)
--- NOTE | 2020-12-31 11:54 | PCPTNOTE ---
On 12/31/20, the student, Siddharth Mallory, provided care and completed [facility] documentation on this patient. I have reviewed the student's documentation and agree with the findings.
--- NOTE | 2020-12-31 12:27 | PM.IMPN ---
Progress Note: A&P Assessment and Plan (1) Acute metabolic encephalopathy: Code(s): G93.41 - Metabolic encephalopathy Status: Acute Assessment and Plan: Her daughter felt that she was more confused. Likely related to UTI. She is A&Ox4 on my evaluation today Head CT showed no acute intracranial findings, she does have evidence of chronic lacunar infarct. She has no neurologic deficits on exam. TSH is within normal limits. Check B12 and folate. Continue to monitor mental status (2) Acute UTI: Code(s): N39.0 - Urinary tract infection, site not specified Status: Acute Assessment and Plan: UA was abnormal on presentation and she complains of dysuria. She is afebrile. She has mild leukocytosis Continue empiric IV Rocephin Gentle IV fluids Urine cultures pending await results and tailor antibiotics accordingly Blood cultures pending (3) Fall: Qualifiers: Encounter type: initial encounter Qualified Code(s): W19.XXXA - Unspecified fall, initial encounter Code(s): W19.XXXA - Unspecified fall, initial encounter Status: Acute Assessment and Plan: May have been weak due to UTI. She was found on the ground for unknown duration of time. She states she did not hit her head or lose consciousness. Head CT, cervical spine and lumbar spine CT, hip/pelvis x-ray without any evidence of injury Fall precautions CK is within normal limits Appreciate PT/OT evals (4) Hypertension: Qualifiers: Hypertension type: unspecified Qualified Code(s): I10 - Essential (primary) hypertension Code(s): I10 - Essential (primary) hypertension Status: Chronic Assessment and Plan: Blood pressures reviewed and have been mostly reasonable, a couple readings elevated. Continue home metoprolol succinate Monitor BP trends Consider additional antihypertensive agent based on overall blood pressure trends (5) Hyperlipidemia: Code(s): E78.5 - Hyperlipidemia, unspecified Status: Chronic Assessment and Plan: LFTs are within normal limits Continue pravastatin Subjective Date/time seen: 12/31/20 12:27 Interval history: Date of service: 12/31/2020 Janis Whittington is an 85-year-old female with a history of hypertension, hyperlipidemia, and CVA who is seen in follow-up for acute metabolic encephalopathy secondary to suspected UTI. I received a call from the nurse this morning as she was sitting at the side of the bed with occupational therapy. She was noted to be quite fatigued during this session and eventually began leaning towards her left side. I evaluated her immediately and she was able to answer all my questions appropriately. She states that she was just feeling tired. She denies headache, confusion, dizziness, lightheadedness, weakness of extremities. Denies visual changes or speech changes. No dysphagia. She did not eat her breakfast this morning because she was not feeling hungry but was able to eat dinner last night with no issues. She states she slept well last night. She denies abdominal pain, nausea, vomiting, fever, or chills. She does endorse dysuria. She has not looked at her urine, therefore does not know if she has had hematuria or dark urine. She denies foul odor. She denies shortness breath, cough, chest pain, or palpitations. She denies any pain from her recent fall. She tells me she fell on her buttocks but has no pain in her buttocks, back, or other body aches. She has no other concerns. Review of Systems Review of Systems: All systems reviewed & are unremarkable except as noted in HPI and below Exam Narrative: Ms. Whittington is a well-nourished, elderly 85-year-old female who is lying supine in bed. She appears comfortable and is in NARD. Neuro: awake, alert and oriented x4, speech clear, CN II-XII intact, strength 5/5 throughout, sensation intact, no pronator drift, bilateral
[2020-12-31 14:00] VITALS: BP 133/79; PULSE 97; RESP 16; TEMP 36.7; O2SAT 97
[2020-12-31] MEDS: PRAVASTATIN SODIUM 20 MG TABLET 40 MG PO (17:09)
[2020-12-31 22:00] VITALS: BP 162/46; PULSE 70; RESP 18; TEMP 36.1; O2SAT 96
[2021-01-01 06:00] VITALS: BP 164/76; PULSE 61; RESP 18; TEMP 36.3; O2SAT 97
[2021-01-01 06:27] LABS: Basophils Absolute Auto 0.1 K/mm3 (0.0-0.1); Basophils Percent Auto 0.6 % (0.2-1.2); Eosinophils Absolute Auto 0.1 K/mm3 (0-0.3); Eosinophils Percent Auto 0.8 % (0-4.4); Hematocrit 37.7 % (37.0-47.0); Immature Granulocyte Absolute 0.03 K/mm3 (0.00-0.031); Immature Granulocyte Percent A 0.4 % (0-0.5); Lymphocytes Absolute Auto 2.05 K/mm3 (0.9-3.2); Lymphocytes Percent Auto 25.9 % (18.3-44.2); Mean Corpuscular HGB Conc 31.8 g/dl (32-36); Mean Corpuscular Hemoglobin 26.4 pg (26-34); Mean Corpuscular Volume 82.9 fl (80-100); Mean Platelet Volume 10.9 fl (7.4-10.4); Monocytes Absolute Auto 0.6 K/mm3 (0.1-0.6); Monocytes Percent Auto 7.1 % (2.6-8.5); Neutrophils Absolute Auto 5.2 K/mm3 (1.3-6.7); Neutrophils Percent Auto 65.2 % (45.5-73.1); Platelet Count Result 187 k/mm3 (150-375); Red Blood Count 4.55 M/mm3 (4.2-5.4); Red Cell Distribution Width 14.5 % (11.5-14.5); White Blood Count 7.9 K/mm3 (4.5-10.0)
[2021-01-01 07:20] LABS: Anion Gap 4 mmol/L (8-16); Blood Urea Nitrogen 13 mg/dL (7-17); Calcium 9.7 mg/dL (8.4-10.2); Carbon Dioxide 25 mmol/L (22-30); Chloride 109 mmol/L (98-107); Estimated CRCL calculation 54 ml/min; Estimated Glomerular Filt Rate > 60; Glucose 104 mg/dL (65-110); Potassium 3.4 mmol/L (3.4-5.0); Sodium 138 mmol/L (137-145)
[2021-01-01 09:19] VITALS: PULSE 80
[2021-01-01] MEDS: METOPROLOL SUCCINATE EXT REL 25 MG TABCR PO (09:19)
--- NOTE | 2021-01-01 09:27 | P.PNIM_ITS ---
Progress Note: A&P Assessment and Plan (1) Acute metabolic encephalopathy: Code(s): G93.41 - Metabolic encephalopathy Status: Acute Assessment and Plan: Her daughter felt that she was more confused. Likely related to UTI. * She is A&Ox4 on my evaluation; she is back to her baseline at this time. * Head CT showed no acute intracranial findings, she does have evidence of chronic lacunar infarct. She has no neurologic deficits on exam. * TSH is within normal limits. B12 and folate pending. * Continue to monitor mental status (2) Acute UTI: Code(s): N39.0 - Urinary tract infection, site not specified Status: Acute Assessment and Plan: UA was abnormal on presentation and she complains of dysuria. She is afebrile. Mild leukocytosis has resolved * Preliminary urine culture with growth of gram negative bacilli * Continue empiric IV Rocephin * Discontinue fluids as she has been adequately rehydrated and is tolerating p.o. intake * Blood cultures pending; preliminary results with no growth to date (3) Fall: Qualifiers: Encounter type: initial encounter Qualified Code(s): W19.XXXA - Unspecified fall, initial encounter Code(s): W19.XXXA - Unspecified fall, initial encounter Status: Acute Assessment and Plan: May have been weak due to UTI. She was found on the ground for unknown duration of time. She states she did not hit her head or lose consciousness. * Head CT, cervical spine and lumbar spine CT, hip/pelvis x-ray without any evidence of injury * Fall precautions * CK is within normal limits * Appreciate PT/OT evals (4) Generalized weakness: Code(s): R53.1 - Weakness Status: Acute Assessment and Plan: Probably related to UTI. She reports that she is generally active * Continue with PT/OT * Plan as above * Care coordination following. Planning for SNF on discharge as the patient lives alone (5) Hypertension: Qualifiers: Hypertension type: unspecified Qualified Code(s): I10 - Essential ( primary) hypertension Code(s): I10 - Essential (primary) hypertension Status: Chronic Assessment and Plan: Blood pressures reviewed and have been mostly reasonable, a couple readings elevated. Last BP 164/76 prior to administration of antihypertensives * Continue home metoprolol succinate * Monitor BP trends * Consider additional antihypertensive agent based on overall blood pressure trends (6) Hyperlipidemia: Code(s): E78.5 - Hyperlipidemia, unspecified Status: Chronic Assessment and Plan: LFTs are within normal limits * Continue pravastatin (7) History of CVA (cerebrovascular accident): Code(s): Z86.73 - Personal history of transient ischemic attack (TIA), and cerebral infarction without residual deficits Status: Inactive Assessment and Plan: Head CT shows evidence of chronic lacunar infarct of left basal ganglia. * The patient is unaware of history of stroke. Her daughter states they have been informed of this by previous providers but cannot recall her having a stroke or being symptomatic * Patient reports she takes aspirin occasionally. Her daughter believes she takes aspirin daily, though it is not on her home medication list * Will initiate aspirin 81 mg daily and ensure this medication remains on board * Continue pravastatin (8) Hypomagnesemia: Code(s): E83.42 - Hypomagnesemia Status: Acute
--- NOTE | 2021-01-01 09:27 | PM.IMPN ---
Progress Note: A&P Assessment and Plan (1) Acute metabolic encephalopathy: Code(s): G93.41 - Metabolic encephalopathy Status: Acute Assessment and Plan: Her daughter felt that she was more confused. Likely related to UTI. She is A&Ox4 on my evaluation; she is back to her baseline at this time. Head CT showed no acute intracranial findings, she does have evidence of chronic lacunar infarct. She has no neurologic deficits on exam. TSH is within normal limits. B12 and folate pending. Continue to monitor mental status (2) Acute UTI: Code(s): N39.0 - Urinary tract infection, site not specified Status: Acute Assessment and Plan: UA was abnormal on presentation and she complains of dysuria. She is afebrile. Mild leukocytosis has resolved Preliminary urine culture with growth of gram negative bacilli Continue empiric IV Rocephin Discontinue fluids as she has been adequately rehydrated and is tolerating p.o. intake Blood cultures pending; preliminary results with no growth to date (3) Fall: Qualifiers: Encounter type: initial encounter Qualified Code(s): W19.XXXA - Unspecified fall, initial encounter Code(s): W19.XXXA - Unspecified fall, initial encounter Status: Acute Assessment and Plan: May have been weak due to UTI. She was found on the ground for unknown duration of time. She states she did not hit her head or lose consciousness. Head CT, cervical spine and lumbar spine CT, hip/pelvis x-ray without any evidence of injury Fall precautions CK is within normal limits Appreciate PT/OT evals (4) Generalized weakness: Code(s): R53.1 - Weakness Status: Acute Assessment and Plan: Probably related to UTI. She reports that she is generally active Continue with PT/OT Plan as above Care coordination following. Planning for SNF on discharge as the patient lives alone (5) Hypertension: Qualifiers: Hypertension type: unspecified Qualified Code(s): I10 - Essential (primary) hypertension Code(s): I10 - Essential (primary) hypertension Status: Chronic Assessment and Plan: Blood pressures reviewed and have been mostly reasonable, a couple readings elevated. Last BP 164/76 prior to administration of antihypertensives Continue home metoprolol succinate Monitor BP trends Consider additional antihypertensive agent based on overall blood pressure trends (6) Hyperlipidemia: Code(s): E78.5 - Hyperlipidemia, unspecified Status: Chronic Assessment and Plan: LFTs are within normal limits Continue pravastatin (7) History of CVA (cerebrovascular accident): Code(s): Z86.73 - Personal history of transient ischemic attack (TIA), and cerebral infarction without residual deficits Status: Inactive Assessment and Plan: Head CT shows evidence of chronic lacunar infarct of left basal ganglia. The patient is unaware of history of stroke. Her daughter states they have been informed of this by previous providers but cannot recall her having a stroke or being symptomatic Patient reports she takes aspirin occasionally. Her daughter believes she takes aspirin daily, though it is not on her home medication list Will initiate aspirin 81 mg daily and ensure this medication remains on board Continue pravastatin (8) Hypomagnesemia: Code(s): E83.42 - Hypomagnesemia Status: Acute Assessment and Plan: Magnesium slightly decreased at 1.5 yesterday Supplemented with 2 g IV magnesium sulfate Repeat magnesium this morning is pending. Will evaluate results and supplement magnesium accordingly Subjective Date/time seen: 01/01/21 09:27 Interval history: Date of service: 01/01/2021 Janis Whittington is an 85-year-old female with a history of hypertension, hyperlipidemia, and CVA who is seen in follow-up for acute metabolic encephalop
[2021-01-01 10:19] LABS: Magnesium 2.2 mg/dL (1.6-2.3)
[2021-01-01] MEDS: ASPIRIN 81 MG ENTERIC TABLET PO (11:54)
[2021-01-01 12:00] LABS: Folic Acid 5.5 ng/mL (2.76->20)
--- NOTE | 2021-01-01 12:44 | PCOTNOTE ---
Attempted to see pt. at 12:39 this date. Just received lunch. Will attempt again if time allows.
[2021-01-01 14:00] VITALS: BP 166/69; PULSE 61; RESP 20; TEMP 36.4; O2SAT 98
[2021-01-01 22:00] VITALS: BP 174/78; PULSE 60; RESP 20; TEMP 36.7; O2SAT 95
[2021-01-02] VITALS (14 sets, daily range): BP systolic 95–183; BP diastolic 51–88; PULSE 55–84; RESP 18–22; TEMP 35.8–36.7; O2SAT 95–100
[2021-01-02 06:51] LABS: Anion Gap 3 mmol/L (8-16); Blood Urea Nitrogen 15 mg/dL (7-17); Calcium 9.5 mg/dL (8.4-10.2); Carbon Dioxide 27 mmol/L (22-30); Chloride 107 mmol/L (98-107); Estimated CRCL calculation 47 ml/min; Estimated Glomerular Filt Rate > 60; Glucose 101 mg/dL (65-110); Potassium 3.4 mmol/L (3.4-5.0); Sodium 137 mmol/L (137-145)
[2021-01-02] MEDS: ASPIRIN 81 MG ENTERIC TABLET PO (09:10)
[2021-01-02] MEDS: METOPROLOL SUCCINATE EXT REL 25 MG TABCR PO (11:01)
[2021-01-02] MEDS: amLODIPine BESYLATE 5 MG TABLET PO (11:02)
[2021-01-02 12:43] LABS: EDCOVIDSCREEN Negative (Negative)
--- NOTE | 2021-01-02 12:53 | PCOTNOTE ---
Patient eating lunch when attempted to see for OT. Will attempt later if patient does not d/c first.
[2021-01-02 14:03] LABS: Glucose Point of Care 116 mg/dl (65-105)
--- NOTE | 2021-01-02 14:08 | ECG_ITS ---
Measurements Intervals Sullivan Rate: 68 P: -79 CA: 115 QRS: -7 QRSD: 88 T: 62 QT: 409 QTc: 437 Interpretive Statements ECTOPIC ATRIAL RHYTHM EARLY PRECORDIAL R/S TRANSITION LEFT VENTRICULAR HYPERTROPHY BASELINE WANDER- V5-V6 ABNORMAL ECG Electronically Signed On 01-02-2021 15:07:07 CDT by Davion Baldwin D.O.
[2021-01-02 15:20] LABS: Basophils Absolute Auto 0.1 K/mm3 (0.0-0.1); Basophils Percent Auto 0.4 % (0.2-1.2); Eosinophils Absolute Auto 0.1 K/mm3 (0-0.3); Eosinophils Percent Auto 0.4 % (0-4.4); Hematocrit 39.2 % (37.0-47.0); Hemoglobin 12.4 g/dL (12.0-15.0); Immature Granulocyte Absolute 0.08 K/mm3 (0.00-0.031); Immature Granulocyte Percent A 0.7 % (0-0.5); Lymphocytes Absolute Auto 2.94 K/mm3 (0.9-3.2); Lymphocytes Percent Auto 25.3 % (18.3-44.2); Mean Corpuscular HGB Conc 31.6 g/dl (32-36); Mean Corpuscular Volume 85.2 fl (80-100); Mean Platelet Volume 10.7 fl (7.4-10.4); Monocytes Absolute Auto 0.7 K/mm3 (0.1-0.6); Monocytes Percent Auto 5.7 % (2.6-8.5); Neutrophils Absolute Auto 7.8 K/mm3 (1.3-6.7); Neutrophils Percent Auto 67.5 % (45.5-73.1); Platelet Count Result 231 k/mm3 (150-375); Red Cell Distribution Width 14.5 % (11.5-14.5); White Blood Count 11.6 K/mm3 (4.5-10.0)
--- NOTE | 2021-01-02 15:23 | P.PNIM_ITS ---
Progress Note: A&P Assessment and Plan (1) Acute metabolic encephalopathy: Code(s): G93.41 - Metabolic encephalopathy Status: Acute Assessment and Plan: Resolved. Her daughter felt that she was more confused on presentation. Likely related to UTI. * She is A&Ox4 on my evaluation; she is back to her baseline at this time. * Head CT showed no acute intracranial findings, she does have evidence of chronic lacunar infarct. She has no neurologic deficits on exam. * TSH, B12, and folate within normal limits. * Continue to monitor mental status (2) Acute UTI: Code(s): N39.0 - Urinary tract infection, site not specified Status: Acute Assessment and Plan: UA was abnormal on presentation and she complains of dysuria. She is afebrile. * Urine culture with growth of >100k Klebsiella * Continue IV Rocephin based on susceptibilities * Blood cultures pending; preliminary results with no growth to date (3) Fall: Qualifiers: Encounter type: initial encounter Qualified Code(s): W19.XXXA - Unspecified fall, initial encounter Code(s): W19.XXXA - Unspecified fall, initial encounter Status: Acute Assessment and Plan: May have been weak due to UTI. She was found on the ground for unknown duration of time. She states she did not hit her head or lose consciousness. * Head CT, cervical spine and lumbar spine CT, hip/pelvis x-ray without any evidence of injury * Fall precautions * CK is within normal limits * Appreciate PT/OT evals. Planning for continued rehab at SNF. * Also may have been due to orthostasis given findings today. (4) Generalized weakness: Code(s): R53.1 - Weakness Status: Acute Assessment and Plan: Probably related to UTI. She reports that she is generally active * Continue with PT/OT * Plan as above * Care coordination following. Planning for SNF on discharge as the patient lives alone (5) Hypertension: Qualifiers: Hypertension type: unspecified Qualified Code(s): I10 - Essential (pr imary) hypertension Code(s): I10 - Essential (primary) hypertension Status: Chronic Assessment and Plan: Blood pressures reviewed and readings had been elevated in the 160s-180s systolic. * Continue home metoprolol succinate * 5 mg Norvasc added for improved blood pressure control though she did not tolerate this and has been discontinued * Monitor BP trends (6) History of CVA (cerebrovascular accident): Code(s): Z86.73 - Personal history of transient ischemic attack (TIA), and cerebral infarction without residual deficits Status: Inactive Assessment and Plan: Head CT shows evidence of chronic lacunar infarct of left basal ganglia. * The patient is unaware of history of stroke. Her daughter states they have been informed of this by previous providers but cannot recall her having a stroke or being symptomatic * Patient reports she takes aspirin occasionally. Her daughter believes she takes aspirin daily, though it is not on her home medication list * Will initiate aspirin 81 mg daily and ensure this medication remains on board * Continue pravastatin (7) Hypomagnesemia: Code(s): E83.42 - Hypomagnesemia Status: Acute Assessment and Plan: Magnesium was slightly decreased and was supplemented accordingly and improved. * Repeat BMP and magnesium tomorrow (8) Decreased responsiveness: Code(s): R41.89 - Other symptoms and signs invo
--- NOTE | 2021-01-02 15:23 | PM.IMPN ---
Progress Note: A&P Assessment and Plan (1) Acute metabolic encephalopathy: Code(s): G93.41 - Metabolic encephalopathy Status: Acute Assessment and Plan: Resolved. Her daughter felt that she was more confused on presentation. Likely related to UTI. She is A&Ox4 on my evaluation; she is back to her baseline at this time. Head CT showed no acute intracranial findings, she does have evidence of chronic lacunar infarct. She has no neurologic deficits on exam. TSH, B12, and folate within normal limits. Continue to monitor mental status (2) Acute UTI: Code(s): N39.0 - Urinary tract infection, site not specified Status: Acute Assessment and Plan: UA was abnormal on presentation and she complains of dysuria. She is afebrile. Urine culture with growth of >100k Klebsiella Continue IV Rocephin based on susceptibilities Blood cultures pending; preliminary results with no growth to date (3) Fall: Qualifiers: Encounter type: initial encounter Qualified Code(s): W19.XXXA - Unspecified fall, initial encounter Code(s): W19.XXXA - Unspecified fall, initial encounter Status: Acute Assessment and Plan: May have been weak due to UTI. She was found on the ground for unknown duration of time. She states she did not hit her head or lose consciousness. Head CT, cervical spine and lumbar spine CT, hip/pelvis x-ray without any evidence of injury Fall precautions CK is within normal limits Appreciate PT/OT evals. Planning for continued rehab at SNF. Also may have been due to orthostasis given findings today. (4) Generalized weakness: Code(s): R53.1 - Weakness Status: Acute Assessment and Plan: Probably related to UTI. She reports that she is generally active Continue with PT/OT Plan as above Care coordination following. Planning for SNF on discharge as the patient lives alone (5) Hypertension: Qualifiers: Hypertension type: unspecified Qualified Code(s): I10 - Essential (primary) hypertension Code(s): I10 - Essential (primary) hypertension Status: Chronic Assessment and Plan: Blood pressures reviewed and readings had been elevated in the 160s-180s systolic. Continue home metoprolol succinate 5 mg Norvasc added for improved blood pressure control though she did not tolerate this and has been discontinued Monitor BP trends (6) History of CVA (cerebrovascular accident): Code(s): Z86.73 - Personal history of transient ischemic attack (TIA), and cerebral infarction without residual deficits Status: Inactive Assessment and Plan: Head CT shows evidence of chronic lacunar infarct of left basal ganglia. The patient is unaware of history of stroke. Her daughter states they have been informed of this by previous providers but cannot recall her having a stroke or being symptomatic Patient reports she takes aspirin occasionally. Her daughter believes she takes aspirin daily, though it is not on her home medication list Will initiate aspirin 81 mg daily and ensure this medication remains on board Continue pravastatin (7) Hypomagnesemia: Code(s): E83.42 - Hypomagnesemia Status: Acute Assessment and Plan: Magnesium was slightly decreased and was supplemented accordingly and improved. Repeat BMP and magnesium tomorrow (8) Decreased responsiveness: Code(s): R41.89 - Other symptoms and signs involving cognitive functions and awareness Status: Acute Assessment and Plan: Patient had brief moment of poor responsiveness this afternoon, see subjective for further details. Planned for discharge home this afternoon which will be postponed and we will monitor her overnight Likely related to orthostatic hypotension. Will monitor her on telemetry overnight. EKG reviewed following episode Labs reviewed falling episode. Lactic acid min
[2021-01-02 15:31] LABS: Lactic Acid Reflex 2.2 mmol/L (0.7-2.1)
[2021-01-02] MEDS: SODIUM CHLORIDE 0.9% IV 250 ML IV CONT (16:21)
[2021-01-02] MEDS: SODIUM CHLORIDE 0.9% IV 1,000 ML 70 ML IV CONT (17:44)
[2021-01-02] MEDS: PRAVASTATIN SODIUM 20 MG TABLET 40 MG PO (17:46)
[2021-01-02 18:15] LABS: Reflex Lactic Acid Yes or No Add Lactic
[2021-01-02 19:02] LABS: Lactic Acid Reflex 1.2 mmol/L (0.7-2.1)
[2021-01-03] VITALS (15 sets, daily range): BP systolic 103–186; BP diastolic 63–83; PULSE 50–94; RESP 16–18; TEMP 36.2–36.5; O2SAT 96–98
[2021-01-03 07:13] LABS: Basophils Percent Auto 0.4 % (0.2-1.2); Eosinophils Absolute Auto 0.1 K/mm3 (0-0.3); Eosinophils Percent Auto 1.4 % (0-4.4); Hemoglobin 11.7 g/dL (12.0-15.0); Immature Granulocyte Absolute 0.05 K/mm3 (0.00-0.031); Immature Granulocyte Percent A 0.7 % (0-0.5); Lymphocytes Absolute Auto 1.82 K/mm3 (0.9-3.2); Lymphocytes Percent Auto 25.1 % (18.3-44.2); Mean Corpuscular HGB Conc 32.5 g/dl (32-36); Mean Corpuscular Hemoglobin 27.5 pg (26-34); Mean Corpuscular Volume 84.7 fl (80-100); Mean Platelet Volume 10.8 fl (7.4-10.4); Monocytes Absolute Auto 0.5 K/mm3 (0.1-0.6); Monocytes Percent Auto 6.9 % (2.6-8.5); Neutrophils Absolute Auto 4.8 K/mm3 (1.3-6.7); Neutrophils Percent Auto 65.5 % (45.5-73.1); Platelet Count Result 160 k/mm3 (150-375); Red Blood Count 4.25 M/mm3 (4.2-5.4); Red Cell Distribution Width 14.3 % (11.5-14.5); White Blood Count 7.3 K/mm3 (4.5-10.0)
[2021-01-03 07:35] LABS: Anion Gap 5 mmol/L (8-16); Blood Urea Nitrogen 15 mg/dL (7-17); Calcium 9.5 mg/dL (8.4-10.2); Carbon Dioxide 26 mmol/L (22-30); Chloride 107 mmol/L (98-107); Estimated CRCL calculation 54 ml/min; Estimated Glomerular Filt Rate > 60; Glucose 101 mg/dL (65-110); Magnesium 1.8 mg/dL (1.6-2.3); Potassium 3.3 mmol/L (3.4-5.0); Sodium 138 mmol/L (137-145)
[2021-01-03] MEDS: SODIUM CHLORIDE 0.9% IV 1,000 ML 70 ML IV CONT (08:19)
[2021-01-03] MEDS: ASPIRIN 81 MG ENTERIC TABLET PO (08:26)
[2021-01-03] MEDS: METOPROLOL SUCCINATE EXT REL 25 MG TABCR PO (08:26)
--- NOTE | 2021-01-03 14:34 | P.DS_ITS ---
DS: Admitting Diagnosis Discharge Date 01/05/2021 Admitting Diagnosis Acute urinary tract infection DS: Discharge Diagnosis Discharge Diagnosis (1) Acute metabolic encephalopathy: Code(s): G93.41 - Metabolic encephalopathy Status: Acute Assessment and Plan: Resolved. Her daughter felt that she was more confused on presentation. Likely related to UTI. * She is A&Ox2 on my evaluation; she appears to be back to her baseline at this time. * Head CT showed no acute intracranial findings, she does have evidence of chronic lacunar infarct. She has no gross neurologic deficits on exam. * TSH, B12, and folate within normal limits. * Continue to monitor mental status (2) Acute UTI: Code(s): N39.0 - Urinary tract infection, site not specified Status: Acute Assessment and Plan: UA was abnormal on presentation and she complains of dysuria. She is afebrile. * Urine culture with growth of >100k Klebsiella * Continue IV Rocephin based on susceptibilities * Blood cultures pending; preliminary results with no growth to date (3) Fall: Qualifiers: Encounter type: initial encounter Qualified Code(s): W19.XXXA - Unspecified fall, initial encounter Code(s): W19.XXXA - Unspecified fall, initial encounter Status: Acute Assessment and Plan: May have been weak due to UTI. She was found on the ground for unknown duration of time. She states she did not hit her head or lose consciousness. * Head CT, cervical spine and lumbar spine CT, hip/pelvis x-ray without any rozina dence of injury * Fall precautions * CK is within normal limits * Appreciate PT/OT evals. Planning for continued rehab at SNF. * Also may have been due to orthostasis given findings today. (4) Generalized weakness: Code(s): R53.1 - Weakness Status: Acute Assessment and Plan: Probably related to UTI. She reports that she is generally active * Continue with PT/OT * Plan as above * Care coordination following. Planning for SNF on discharge as the patient lives alone (5) Hypertension: Qualifiers: Hypertension type: unspecified Qualified Code(s): I10 - Essential (primary) hypertension Code(s): I10 - Essential (primary) hypertension Status: Chronic Assessment and Plan: Blood pressures reviewed and readings had been elevated in the 160s-180s systolic. * Continue home metoprolol succinate * 5 mg Norvasc added for improved blood pressure control though she did not tolerate this and has been discontinued * Low dose hydralazine started 10 mg PO TID * Toprol 25 mg PO daily at discharge. * Monitor BP trends (6) Hypomagnesemia: Code(s): E83.42 - Hypomagnesemia Status: Acute Assessment and Plan: Magnesium was slightly decreased and was supplemented accordingly and improved. * Repeat BMP: K is normal at 4. (7) Decreased responsiveness: Code(s): R41.89 - Other symptoms and signs involving cognitive functions and awareness Status: Acute Assessment and Plan: Patient had brief moment of poor responsiveness 12/20/2020, see subjective for further details. * Planned for discharge home that afternoon which will be postponed and we will monitor her overnight * Likely related to orthostatic hypotension. * Will monitor her on telemetry overnight. EKG reviewed following episode * Labs reviewed falling episode. Lactic acid minimally elevated at 2.2. She received IV fluid bolus with
--- NOTE | 2021-01-03 14:34 | PM.DS ---
DS: Admitting Diagnosis Discharge Date 01/05/2021 Admitting Diagnosis Acute urinary tract infection DS: Discharge Diagnosis Discharge Diagnosis (1) Acute metabolic encephalopathy: Code(s): G93.41 - Metabolic encephalopathy Status: Acute Assessment and Plan: Resolved. Her daughter felt that she was more confused on presentation. Likely related to UTI. She is A&Ox2 on my evaluation; she appears to be back to her baseline at this time. Head CT showed no acute intracranial findings, she does have evidence of chronic lacunar infarct. She has no gross neurologic deficits on exam. TSH, B12, and folate within normal limits. Continue to monitor mental status (2) Acute UTI: Code(s): N39.0 - Urinary tract infection, site not specified Status: Acute Assessment and Plan: UA was abnormal on presentation and she complains of dysuria. She is afebrile. Urine culture with growth of >100k Klebsiella Continue IV Rocephin based on susceptibilities Blood cultures pending; preliminary results with no growth to date (3) Fall: Qualifiers: Encounter type: initial encounter Qualified Code(s): W19.XXXA - Unspecified fall, initial encounter Code(s): W19.XXXA - Unspecified fall, initial encounter Status: Acute Assessment and Plan: May have been weak due to UTI. She was found on the ground for unknown duration of time. She states she did not hit her head or lose consciousness. Head CT, cervical spine and lumbar spine CT, hip/pelvis x-ray without any evidence of injury Fall precautions CK is within normal limits Appreciate PT/OT evals. Planning for continued rehab at SNF. Also may have been due to orthostasis given findings today. (4) Generalized weakness: Code(s): R53.1 - Weakness Status: Acute Assessment and Plan: Probably related to UTI. She reports that she is generally active Continue with PT/OT Plan as above Care coordination following. Planning for SNF on discharge as the patient lives alone (5) Hypertension: Qualifiers: Hypertension type: unspecified Qualified Code(s): I10 - Essential (primary) hypertension Code(s): I10 - Essential (primary) hypertension Status: Chronic Assessment and Plan: Blood pressures reviewed and readings had been elevated in the 160s-180s systolic. Continue home metoprolol succinate 5 mg Norvasc added for improved blood pressure control though she did not tolerate this and has been discontinued Low dose hydralazine started 10 mg PO TID Toprol 25 mg PO daily at discharge. Monitor BP trends (6) Hypomagnesemia: Code(s): E83.42 - Hypomagnesemia Status: Acute Assessment and Plan: Magnesium was slightly decreased and was supplemented accordingly and improved. Repeat BMP: K is normal at 4. (7) Decreased responsiveness: Code(s): R41.89 - Other symptoms and signs involving cognitive functions and awareness Status: Acute Assessment and Plan: Patient had brief moment of poor responsiveness 12/20/2020, see subjective for further details. Planned for discharge home that afternoon which will be postponed and we will monitor her overnight Likely related to orthostatic hypotension. Will monitor her on telemetry overnight. EKG reviewed following episode Labs reviewed falling episode. Lactic acid minimally elevated at 2.2. She received IV fluid bolus with yarsani of normal BP. Fall precautions. Monitor closely. (8) Orthostatic hypotension: Code(s): I95.1 - Orthostatic hypotension Status: Acute Assessment and Plan: Noted to have 35 point drop in systolic blood pressure from lying to standing. This is likely what triggered her episode this afternoon. Administer 250 cc IV fluid bolus then continue with maintenance fluids at 70 ml/hr Add QUANG hose Monitor blood pressure trends closely
--- NOTE | 2021-01-03 16:17 | P.PNIM_ITS ---
Progress Note: A&P Assessment and Plan (1) Acute metabolic encephalopathy: Code(s): G93.41 - Metabolic encephalopathy Status: Acute Assessment and Plan: Acute altered mental statuls, likely related to metabolic encephalopathy in the setting of UTI, resolved. H * She is A&Ox2 on my evaluation; patient may carry a diagnosis of mild cognitive impairment. * Head CT showed evidence of chronic lacunar infarct. She has no gross neurologic deficits on exam. * TSH, B12, and folate within normal limits. * Continue to monitor mental status; fall precautions. (2) Acute UTI: Code(s): N39.0 - Urinary tract infection, site not specified Status: Acute Assessment and Plan: UA was abnormal on presentation and she complains of dysuria. She is afebrile. * Urine culture with growth of >100k Klebsiella * Continue IV Rocephin based on susceptibilities * Blood cultures pending; preliminary results with no growth to date (3) Fall: Qualifiers: Encounter type: initial encounter Qualified Code(s): W19.XXXA - Unspecified fall, initial encounter Code(s): W19.XXXA - Unspecified fall, initial encounter Status: Acute Assessment and Plan: May have been weak due to UTI. She was found on the ground for unknown duration of time. She states she did not hit her head or lose consciousness. * Head CT, cervical spine and lumbar spine CT, hip/pelvis x-ray without any evidence of injury * Fall precautions * CK is within normal limits * Appreciate PT/OT evals. Planning for continued rehab at SNF. * Also may have been due to orthostasis given findings today. (4) Generalized weakness: Code(s): R53.1 - Weakness Status: Acute Assessment and Plan: Probably related to UTI. She reports that she is generally active * Continue with PT/OT * Plan as above * Care coordination following. Planning for SNF on discharge as the patient lives alone (5) Hypertension: Qualifiers: Hypertension type: unspecified Qualified Code(s): I10 - Essential (primary) hypertension Code(s): I10 - Essential (primary) hypertension Status: Chronic Assessment and Plan: Blood pressures reviewed and readings had been elevated in the 160s-180s systolic. * Continue home metoprolol succinate * 5 mg Norvasc added for improved blood pressure control though she did not tolerate this and has been discontinued * NOrvasc 2.5 mg PO given today. We will monitor her response. * Stopped Iv fluids. * Monitor BP trends (6) History of CVA (cerebrovascular accident): Code(s): Z86.73 - Personal history of transient ischemic attack (TIA), and cerebral infarction without residual deficits Status: Inactive Assessment and Plan: Head CT shows evidence of chronic lacunar infarct of left basal ganglia. * The patient is unaware of history of stroke. Her daughter states they have been informed of this by previous providers but cannot recall her having a stroke or being symptomatic * Patient reports she takes aspirin occasionally. Her daughter believes she takes aspirin daily, though it is not on her home medication list * Will initiate aspirin 81 mg daily and ensure this medication remains on board * Continue pravastatin (7) Hypomagnesemia: Code(s): E83.42 - Hypomagnesemia Status: Acute Assessment and Plan: Magnesium was slightly decreased and was supplemented accordingly and improved. * Repeat magnesium tomorrow
--- NOTE | 2021-01-03 16:17 | PM.IMPN ---
Progress Note: A&P Assessment and Plan (1) Acute metabolic encephalopathy: Code(s): G93.41 - Metabolic encephalopathy Status: Acute Assessment and Plan: Acute altered mental statuls, likely related to metabolic encephalopathy in the setting of UTI, resolved. H She is A&Ox2 on my evaluation; patient may carry a diagnosis of mild cognitive impairment. Head CT showed evidence of chronic lacunar infarct. She has no gross neurologic deficits on exam. TSH, B12, and folate within normal limits. Continue to monitor mental status; fall precautions. (2) Acute UTI: Code(s): N39.0 - Urinary tract infection, site not specified Status: Acute Assessment and Plan: UA was abnormal on presentation and she complains of dysuria. She is afebrile. Urine culture with growth of >100k Klebsiella Continue IV Rocephin based on susceptibilities Blood cultures pending; preliminary results with no growth to date (3) Fall: Qualifiers: Encounter type: initial encounter Qualified Code(s): W19.XXXA - Unspecified fall, initial encounter Code(s): W19.XXXA - Unspecified fall, initial encounter Status: Acute Assessment and Plan: May have been weak due to UTI. She was found on the ground for unknown duration of time. She states she did not hit her head or lose consciousness. Head CT, cervical spine and lumbar spine CT, hip/pelvis x-ray without any evidence of injury Fall precautions CK is within normal limits Appreciate PT/OT evals. Planning for continued rehab at SNF. Also may have been due to orthostasis given findings today. (4) Generalized weakness: Code(s): R53.1 - Weakness Status: Acute Assessment and Plan: Probably related to UTI. She reports that she is generally active Continue with PT/OT Plan as above Care coordination following. Planning for SNF on discharge as the patient lives alone (5) Hypertension: Qualifiers: Hypertension type: unspecified Qualified Code(s): I10 - Essential (primary) hypertension Code(s): I10 - Essential (primary) hypertension Status: Chronic Assessment and Plan: Blood pressures reviewed and readings had been elevated in the 160s-180s systolic. Continue home metoprolol succinate 5 mg Norvasc added for improved blood pressure control though she did not tolerate this and has been discontinued NOrvasc 2.5 mg PO given today. We will monitor her response. Stopped Iv fluids. Monitor BP trends (6) History of CVA (cerebrovascular accident): Code(s): Z86.73 - Personal history of transient ischemic attack (TIA), and cerebral infarction without residual deficits Status: Inactive Assessment and Plan: Head CT shows evidence of chronic lacunar infarct of left basal ganglia. The patient is unaware of history of stroke. Her daughter states they have been informed of this by previous providers but cannot recall her having a stroke or being symptomatic Patient reports she takes aspirin occasionally. Her daughter believes she takes aspirin daily, though it is not on her home medication list Will initiate aspirin 81 mg daily and ensure this medication remains on board Continue pravastatin (7) Hypomagnesemia: Code(s): E83.42 - Hypomagnesemia Status: Acute Assessment and Plan: Magnesium was slightly decreased and was supplemented accordingly and improved. Repeat magnesium tomorrow (8) Decreased responsiveness: Code(s): R41.89 - Other symptoms and signs involving cognitive functions and awareness Status: Acute Assessment and Plan: Patient had brief moment of poor responsiveness this afternoon, see subjective for further details. Planned for discharge home this afternoon which will be postponed and we will monitor her overnight Likely related to orthostatic hypotension. Will monitor her on telemetry overnight
[2021-01-03] MEDS: amLODIPine BESYLATE 2.5 MG TABLET PO (16:39)
[2021-01-03] MEDS: PRAVASTATIN SODIUM 20 MG TABLET 40 MG PO (16:39)
[2021-01-04] VITALS (12 sets, daily range): BP systolic 89–184; BP diastolic 57–75; PULSE 53–78; RESP 18; TEMP 36.4–36.7; O2SAT 96–99
[2021-01-04] MEDS: ASPIRIN 81 MG ENTERIC TABLET PO (09:19)
[2021-01-04] MEDS: METOPROLOL SUCCINATE EXT REL 25 MG TABCR PO (09:20)
--- NOTE | 2021-01-04 13:12 | P.PNIM_ITS ---
Progress Note: A&P Assessment and Plan (1) Acute metabolic encephalopathy: Code(s): G93.41 - Metabolic encephalopathy Status: Acute Assessment and Plan: Acute altered mental statuls, likely related to metabolic encephalopathy in the setting of UTI, resolved. H * She is A&Ox2 on my evaluation; patient may carry a diagnosis of mild cognitive impairment. * Head CT showed evidence of chronic lacunar infarct. She has no gross neurologic deficits on exam. * TSH, B12, and folate within normal limits. * Continue to monitor mental status; fall precautions. (2) Acute UTI: Code(s): N39.0 - Urinary tract infection, site not specified Status: Acute Assessment and Plan: UA was abnormal on presentation and she complains of dysuria. She is afebrile. * Urine culture with growth of >100k Klebsiella * Continue IV Rocephin based on susceptibilities * Blood cultures pending; preliminary results with no growth to date (3) Fall: Qualifiers: Encounter type: initial encounter Qualified Code(s): W19.XXXA - Unspecified fall, initial encounter Code(s): W19.XXXA - Unspecified fall, initial encounter Status: Acute Assessment and Plan: May have been weak due to UTI. She was found on the ground for unknown duration of time. She states she did not hit her head or lose consciousness. * Head CT, cervical spine and lumbar spine CT, hip/pelvis x-ray without any evidence of injury * Fall precautions * CK is within normal limits * Appreciate PT/OT evals. Planning for continued rehab at SNF. * Also may have been due to orthostasis given findings today. (4) Generalized weakness: Code(s): R53.1 - Weakness Status: Acute Assessment and Plan: Probably related to UTI. She reports that she is generally active * Continue with PT/OT * Plan as above * Care coordination following. Planning for SNF on discharge as the patient lives alone (5) Hypertension: Qualifiers: Hypertension type: unspecified Qualified Code(s): I10 - Essential (primary) hypertension Code(s): I10 - Essential (primary) hypertension Status: Chronic Assessment and Plan: Blood pressures reviewed and readings had been elevated in the 160s-180s systolic. * Continue home metoprolol succinate * 2.5 mg Norvasc added for improved blood pressure control though she had an hypotensive episode this morning and this was discontinued * starte hydralazine 10 mg PO q 8 hrs. Monitro clinical response. * Stopped Iv fluids. * Monitor BP trends (6) History of CVA (cerebrovascular accident): Code(s): Z86.73 - Personal history of transient ischemic attack (TIA), and cerebral infarction without residual deficits Status: Inactive Assessment and Plan: Head CT shows evidence of chronic lacunar infarct of left basal ganglia. * The patient is unaware of history of stroke. Her daughter states they have been informed of this by previous providers but cannot recall her having a st roke or being symptomatic * Patient reports she takes aspirin occasionally. Her daughter believes she takes aspirin daily, though it is not on her home medication list * Will initiate aspirin 81 mg daily and ensure this medication remains on board * Continue pravastatin (7) Hypomagnesemia: Code(s): E83.42 - Hypomagnesemia Status: Acute Assessment and Plan: Magnesium was slightly decreased and was supplemented accordingly and improved. * Repeat magnesium to
--- NOTE | 2021-01-04 13:12 | PM.IMPN ---
Progress Note: A&P Assessment and Plan (1) Acute metabolic encephalopathy: Code(s): G93.41 - Metabolic encephalopathy Status: Acute Assessment and Plan: Acute altered mental statuls, likely related to metabolic encephalopathy in the setting of UTI, resolved. H She is A&Ox2 on my evaluation; patient may carry a diagnosis of mild cognitive impairment. Head CT showed evidence of chronic lacunar infarct. She has no gross neurologic deficits on exam. TSH, B12, and folate within normal limits. Continue to monitor mental status; fall precautions. (2) Acute UTI: Code(s): N39.0 - Urinary tract infection, site not specified Status: Acute Assessment and Plan: UA was abnormal on presentation and she complains of dysuria. She is afebrile. Urine culture with growth of >100k Klebsiella Continue IV Rocephin based on susceptibilities Blood cultures pending; preliminary results with no growth to date (3) Fall: Qualifiers: Encounter type: initial encounter Qualified Code(s): W19.XXXA - Unspecified fall, initial encounter Code(s): W19.XXXA - Unspecified fall, initial encounter Status: Acute Assessment and Plan: May have been weak due to UTI. She was found on the ground for unknown duration of time. She states she did not hit her head or lose consciousness. Head CT, cervical spine and lumbar spine CT, hip/pelvis x-ray without any evidence of injury Fall precautions CK is within normal limits Appreciate PT/OT evals. Planning for continued rehab at SNF. Also may have been due to orthostasis given findings today. (4) Generalized weakness: Code(s): R53.1 - Weakness Status: Acute Assessment and Plan: Probably related to UTI. She reports that she is generally active Continue with PT/OT Plan as above Care coordination following. Planning for SNF on discharge as the patient lives alone (5) Hypertension: Qualifiers: Hypertension type: unspecified Qualified Code(s): I10 - Essential (primary) hypertension Code(s): I10 - Essential (primary) hypertension Status: Chronic Assessment and Plan: Blood pressures reviewed and readings had been elevated in the 160s-180s systolic. Continue home metoprolol succinate 2.5 mg Norvasc added for improved blood pressure control though she had an hypotensive episode this morning and this was discontinued starte hydralazine 10 mg PO q 8 hrs. Monitro clinical response. Stopped Iv fluids. Monitor BP trends (6) History of CVA (cerebrovascular accident): Code(s): Z86.73 - Personal history of transient ischemic attack (TIA), and cerebral infarction without residual deficits Status: Inactive Assessment and Plan: Head CT shows evidence of chronic lacunar infarct of left basal ganglia. The patient is unaware of history of stroke. Her daughter states they have been informed of this by previous providers but cannot recall her having a stroke or being symptomatic Patient reports she takes aspirin occasionally. Her daughter believes she takes aspirin daily, though it is not on her home medication list Will initiate aspirin 81 mg daily and ensure this medication remains on board Continue pravastatin (7) Hypomagnesemia: Code(s): E83.42 - Hypomagnesemia Status: Acute Assessment and Plan: Magnesium was slightly decreased and was supplemented accordingly and improved. Repeat magnesium tomorrow (8) Decreased responsiveness: Code(s): R41.89 - Other symptoms and signs involving cognitive functions and awareness Status: Acute Assessment and Plan: Patient had brief moment of poor responsiveness this afternoon, see subjective for further details. Planned for discharge home this afternoon which will be postponed and we will monitor her overnight Likely related to orthostatic hypotension. Will monitor he
[2021-01-04] MEDS: hydrALAZINE 10 MG TABLET PO ×2 (15:08→17:48)
[2021-01-04] MEDS: PRAVASTATIN SODIUM 20 MG TABLET 40 MG PO (17:49)
[2021-01-05] VITALS (7 sets, daily range): BP systolic 122–179; BP diastolic 62–73; PULSE 54–73; RESP 18–20; TEMP 36.2–36.4; O2SAT 97–100
[2021-01-05 09:06] LABS: Hematocrit 41.1 % (37.0-47.0); Hemoglobin 13.3 g/dL (12.0-15.0); Mean Corpuscular HGB Conc 32.4 g/dl (32-36); Mean Corpuscular Hemoglobin 27.3 pg (26-34); Mean Corpuscular Volume 84.4 fl (80-100); Mean Platelet Volume 10.3 fl (7.4-10.4); Platelet Count Result 195 k/mm3 (150-375); Red Blood Count 4.87 M/mm3 (4.2-5.4); Red Cell Distribution Width 14.4 % (11.5-14.5); White Blood Count 8.9 K/mm3 (4.5-10.0)
[2021-01-05 09:23] LABS: Anion Gap 6 mmol/L (8-16); Blood Urea Nitrogen 19 mg/dL (7-17); Calcium 10.6 mg/dL (8.4-10.2); Carbon Dioxide 27 mmol/L (22-30); Chloride 105 mmol/L (98-107); Estimated CRCL calculation 47 ml/min; Estimated Glomerular Filt Rate > 60; Glucose 105 mg/dL (65-110); Sodium 138 mmol/L (137-145)
[2021-01-05] MEDS: ASPIRIN 81 MG ENTERIC TABLET PO (09:32)
[2021-01-05] MEDS: hydrALAZINE 10 MG TABLET PO ×2 (09:32→12:42)
[2021-01-05] MEDS: POTASSIUM CHLORIDE 20 MEQ PACKET (FOR LIQUID) 40 MEQ PO (09:33)
[2021-01-05] MEDS: METOPROLOL SUCCINATE EXT REL 50 MG TABCR PO (09:33)
[2021-01-05 12:17] LABS: EDCOVIDSCREEN Negative (Negative)
== END 2021-01-05 14:15 | DRG 689 ==
LOC: ANHED 15:19 → ANH3MEDSUR 15:49
PROVIDERS: Nurse Practitioner; Physician Assistant; Admitting Provider Internal Medicine; Emergency Provider Emergency Medicine; PCP Anesthesiology; Visit Provider Internal Medicine
DX: N39.0 Urinary tract infection, site not specified (principal); G93.41 Metabolic encephalopathy; B96.1 Klebsiella pneumoniae [K. pneumoniae] as the cause of diseases classified elsewhere; Z23 Encounter for immunization; W19.XXXA Unspecified fall, initial encounter; E83.42 Hypomagnesemia; R41.89 Other symptoms and signs involving cognitive functions and awareness; I95.1 Orthostatic hypotension; I10 Essential (primary) hypertension; E78.5 Hyperlipidemia, unspecified; Z87.891 Personal history of nicotine dependence; Z86.73 Personal history of transient ischemic attack (TIA), and cerebral infarction without residual deficits
CPT/HCPCS: 36415; 51701; 70450; 71046; 72125; 72131; 73521; 80048; 80053; 81001; 82550; 82607; 82746; 82948; 83605; 83615; 83690; 83735; 84443; 85025; 85027; 86140; 87040; 87077; 87086; 87186; 87426; 90471; 90653; 93005; 96361; 96365; 96367; 97110; 97116; 97161; 97165; 97530; 97535; 99291; A9270; C9803; G0008; G0378; J0696; J3475; J7030; J7040; J7050; L0140

== ENCOUNTER 2021-07-19 14:54 | Emergency (ER) | payer OTHER, SELFPAY ==
--- NOTE | ~2021-07-19 | XR_ITS ---
EXAM: XR hip LT min 3V w AP pelvis HISTORY: LT GROIN PAIN AFTER FALL COMPARISON: 12/30/2020 FINDINGS: Degenerative changes in the spine. 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 No fra cture. No dislocation. Partially visualized bowel gas pattern is within normal limits. IMPRESSION: No acute osseous finding in the left hip. Reviewed, dictated and finalized at location K.
--- NOTE | ~2021-07-19 | CT_ITS ---
EXAMINATION: CT pelvis wo con DATE: 07/19/2021 16:50 INDICATION: TECHNIQUE: Computed tomography (CT) of the pelvis was performed without intravenous contrast. Automat ed exposure control and iterative reconstruction technique were employed. The dose-length product was 409.70 mGy-cm. COMPARISON: X-ray left hip and pelvis same date. CT pelvis 05/17/2020. FINDINGS: Limitations: None Bones: Osteopenia. Degenerative changes in the lower lumbar spine. Moderate left and mild right osteo arthritic change in the hips. No fracture or dislocation. Soft Tissues:Atherosclerotic arterial calcifications. Scattered diverticuli without evidence of diver ticulosis. Uterus and ovaries are not visualized. The bladder is partially distended with surrounding inflammatory change. Fluid: No significant fluid within the joint capsule or surrounding bursal spaces. IMPRESSION: No acute osseous abnormality in the left hip or pelvis. Possible cystitis. Reviewed, dictated and finalized at location K.
--- NOTE | ~2021-07-19 | CT_ITS ---
EXAMINATION: CT brain wo con DATE: 07/19/2021 16:50 INDICATION: fall TECHNIQUE: Computed tomography (CT) of the head was performed without intravenous contrast. The mA wa s adjusted according to patient size. Iterative reconstruction technique was employed. The dose-lengt h product was 605.33 mGy-cm. COMPARISON: 12/30/2020. FINDINGS: No acute intracranial hemorrhage or extra-axial fluid collection. No hydrocephalus, mass, or herniation. No acute ischemic infarct. Unremarkable dural venous sinus attenuation. No acute osseous abnormality. Right maxillary retention cyst or polyp, minimal mucosal thickening in the left inferior maxillary si nus, otherwise the aerated spaces are clear. Moderate atrophy. Mild chronic white matter change. Old lacunar infarct. Atherosclerotic intracranial calcifications. IMPRESSION: No acute intracranial process. Reviewed, dictated and finalized at location K.
--- NOTE | ~2021-07-19 | XR_ITS ---
EXAMINATION: XR chest 2V Exam Date/Time: 07/19/2021 16:20 CDT CLINICAL HISTORY: FALL,HX CVA,HTN Comparison: 12/30/2020. RESULT: Lines, tubes, and devices: None. Lungs and pleura: Senescent changes, otherwise clear. Cardiomediastinal silhouette: Stable cardiomediastinal silhouette. Other: No acute osseous or upper abdominal finding. IMPRESSION: No acute cardiopulmonary process Reviewed, dictated and finalized at location K.
[2021-07-19 14:56] VITALS: BP 153/70; PULSE 69; RESP 16; TEMP 36.7; O2SAT 100
--- NOTE | 2021-07-19 16:18 | ED.FALL ---
HPI - Fall General Chief Complaint: Fall <Tanya Luu PA-C - Last Filed: 07/19/21 19:24> Stated Complaint: fall, left groin pain <LAMAR Dwyer Last Filed: 07/19/21 19:24> Time Seen by Provider: 07/19/21 16:05 <LAMAR Dwyer Last Filed: 07/19/21 19:24> Source: patient and family <LAMAR Dwyer Last Filed: 07/19/21 19:24> Mode of arrival: wheelchair <LAMAR Dwyer Last Filed: 07/19/21 19:24> Limitations: dementia <LAMAR Dwyer Last Filed: 07/19/21 19:24> History of Present Illness HPI Narrative: This is a 85 year old female that presents to the ER for left hip pain present after a fall today. Reports she has been feeling generally weak today. Family reports this usually means she has a UTI. She lost her balance and fell in the bathroom. Does not believe she hit her head. She did not lose consciousness. Reports she has had left hip pain since. Worse with movement and relieved with rest. Denies chest pain, shortness of breath, abdominal pain, vomiting, dysuria, or focal numbness or weakness. <Tanya Luu PA-C - Last Filed: 07/19/21 19:24> Related Data Home Medications: Home Medications Medication Instructions Recorded Confirmed metoprolol succinate 25 mg PO DAILY 05/17/20 12/30/20 pravastatin 40 mg PO QPM 05/17/20 12/30/20 <LAMAR Dwyer Last Filed: 07/19/21 19:24> Allergies/Adverse Reactions: Allergies Allergy/AdvReac Type Severity Reaction Status Date / Time Quinolones Allergy Mild unsure Verified 12/30/20 17:51 ciprofloxacin Allergy Unknown unsure Verified 12/30/20 17:51 penicillin G Allergy Unknown unsure Verified 12/30/20 17:51 Penicillins Allergy Unknown unsure Verified 12/30/20 17:51 tetracycline Allergy Unknown unsure Verified 12/30/20 17:51 <Tanya Luu PA-C - Last Filed: 07/19/21 19:24> Review of Systems Review of Systems: CONSTITUTIONAL: Denies fever EYES: Denies visual changes CARDIOVASCULAR: Denies chest pain RESPIRATORY: Denies dyspnea. GASTROINTESTINAL: Denies abdominal pain, nausea, vomiting GENITOURINARY: Denies dysuria MUSCULOSKELETAL: Reports joint pain and myalgia. Denies back pain NEUROLOGIC: Reports generalized weakness. Denies numbness <Tanya Luu PA-C - Last Filed: 07/19/21 19:24> All systems reviewed & are unremarkable except as noted in HPI and below <Tanya Luu PA-C - Last Filed: 07/19/21 19:24> [facility] Past Medical History Medical History: Medical History (Updated 07/20/21 @ 00:00 by Tamanna Garza) Dementia History of CVA (cerebrovascular accident) Per CT scanChronic lacunar infarct of left basal ganglia Cerebral atherosclerosis and chronic small vessel ischemic changes of the cerebral white matter Prominent central and cortical cerebral and cerebellar atrophy No acute intracranial finding or skull fracture 12/30/2020 History of hypertension Hyperlipidemia Hypertension <Tanya Luu PA-C - Last Filed: 07/19/21 19:24> Surgical History Surgical History: Surgical History (Updated 12/30/20 @ 23:30 by Brandie Nathan NP) H/O: hysterectomy Hx of cholecystectomy <Tanya Luu PA-C - Last Filed: 07/19/21 19:24> Family History Family History: Family History Father Patient's father is Cerebrovascular accident Mother Patient's mother is Family history of malignant neoplasm of breast in first degree relative Breast cancer <Tanya Luu PA-C - Last Filed: 07/19/21 19:24> Social History Social History: Social History (Updated 12/30/20 @ 23:35 by Brandie Nathan NP) Social History: According to her old records the patient quit in 1987 and she was a social drinker. She lives home alone. She is listed as . She tells me she has 1 daughter. 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
[2021-07-19 17:01] LABS: Basophils Percent Auto 0.3 % (0.2-1.2); Eosinophils Percent Auto 0.2 % (0-4.4); Hematocrit 36.7 % (37.0-47.0); Hemoglobin 11.5 g/dL (12.0-15.0); Immature Granulocyte Absolute 0.02 K/mm3 (0.00-0.031); Immature Granulocyte Percent A 0.2 % (0-0.5); Lymphocytes Absolute Auto 2.58 K/mm3 (0.9-3.2); Lymphocytes Percent Auto 25.6 % (18.3-44.2); Mean Corpuscular HGB Conc 31.3 g/dl (32-36); Mean Corpuscular Hemoglobin 25.4 pg (26-34); Mean Platelet Volume 10.4 fl (7.4-10.4); Monocytes Absolute Auto 0.6 K/mm3 (0.1-0.6); Monocytes Percent Auto 6.1 % (2.6-8.5); Neutrophils Absolute Auto 6.8 K/mm3 (1.3-6.7); Neutrophils Percent Auto 67.6 % (45.5-73.1); Platelet Count Result 241 k/mm3 (150-375); Red Blood Count 4.53 M/mm3 (4.2-5.4); White Blood Count 10.1 K/mm3 (4.5-10.0)
[2021-07-19 17:04] VITALS: BP 178/65; PULSE 73; RESP 22; O2SAT 98
[2021-07-19 17:10] LABS: Alanine Aminotransferase 16 U/L (4-35); Alkaline Phosphatase 104 U/L (38-126); Anion Gap 6 mmol/L (8-16); Aspartate Amino Transferase 25 U/L (14-36); Bilirubin,Total 0.3 mg/dL (0.2-1.3); Blood Urea Nitrogen 18 mg/dL (7-17); Calcium 9.8 mg/dL (8.4-10.2); Carbon Dioxide 27 mmol/L (22-30); Chloride 104 mmol/L (98-107); Creatine Kinase 60 U/L (30-135); Estimated CRCL calculation 39 ml/min; Estimated Glomerular Filt Rate > 60; Glucose 107 mg/dL (65-110); Potassium 3.8 mmol/L (3.4-5.0); Sodium 137 mmol/L (137-145)
[2021-07-19 17:11] LABS: INR 1.1; Prothrombin Time 14.1 Seconds (11.1-14.7)
[2021-07-19 17:12] LABS: Partial Thromboplastin Time 35.6 SECONDS (22.3-36.8)
[2021-07-19 17:32] LABS: Add Urine Microscopic? YES; Appearance Urine Cloudy (Clear); Bilirubin Urine Negative (Negative); Blood Urine 3+ (Negative); Budding Yeast Urine Present /hpf; Color Urine Yellow (Yellow); Glucose Urine UA Negative (Negative); Ketones Urine Negative (Negative); Leukocyte Esterase Ur 3+ LEU/UL (Negative); Nitrate Urine Negative (Negative); Protein Urine 2+ mg/dL (Negative); RBC Urine >75 /hpf (0-2); Specific Grav Ur 1.012 (1.001-1.035); Squamous Epithelial Cell Urine Few /hpf (Few); Urobilinogen Urine Negative mg/dL (<2.0); WBC Urine >75 /hpf
[2021-07-19 18:41] VITALS: BP 144/59; PULSE 62; RESP 20; O2SAT 98
[2021-07-19 18:51] VITALS: RESP 20; O2SAT 98
[2021-07-19 19:18] VITALS: BP 162/87; PULSE 63; RESP 15; O2SAT 99
== END 2021-07-19 19:40 | disposition home or self-care (01) ==
PROVIDERS: Physician Assistant; Emergency Provider Emergency Medicine; PCP Anesthesiology
DX: S79.912A Unspecified injury of left hip, initial encounter (principal); N30.00 Acute cystitis without hematuria; F03.90 Unspecified dementia, unspecified severity, without behavioral disturbance, psychotic disturbance, mood disturbance, and anxiety; Z86.73 Personal history of transient ischemic attack (TIA), and cerebral infarction without residual deficits; I10 Essential (primary) hypertension; E78.5 Hyperlipidemia, unspecified; Z87.891 Personal history of nicotine dependence; W18.39XA Other fall on same level, initial encounter
CPT/HCPCS: 36415; 51701; 70450; 71046; 72192; 73502; 80053; 81001; 82550; 85025; 85610; 85730; 87077; 87086; 87186; 96365; 96367; 99284; J0131; J0696

== ENCOUNTER 2021-09-15 10:31 | Inpatient (IN) | payer OTHER, SELFPAY ==
[2021-09-15] VITALS (19 sets, daily range): BP systolic 104–171; BP diastolic 47–88; PULSE 69–71; RESP 16–18; TEMP 36.5–36.7; O2SAT 96–100; BMI 24.3
--- NOTE | ~2021-09-15 | XR_ITS ---
XR chest 2V DATE: 09/15/2021 11:16 INDICATION: Weakness TECHNIQUE: AP and lateral views COMPARISON: 07/19/2021 AP and lateral chest FINDINGS: Mild cardiomegaly. Mild aortic tortuosity. No hilar or mediastinal enlargement. No pulmonary infiltrate or consolidation, pleural effusion or pulmonary vascular congestion or pneumo thorax. Diffuse osteopenia. IMPRESSION: No active pulmonary disease Reviewed, dictated and finalized at location B. IMPRESSION: No active pulmonary disease
--- NOTE | ~2021-09-15 | XR_ITS ---
EXAMINATION: XR chest 1V portable 09/18/2021 01:42 INDICATION: Shortness of breath PROCEDURE: AP portable chest COMPARISON: Comparison to multiple prior studies sequentially, with oldest reviewed study dated 05/17. FINDINGS: The lungs are clear. The cardiomediastinal silhouette is within normal limits. There are no pleural effusions. There is no pneumothorax suspected. IMPRESSION: 1: NO ACUTE CARDIOPULMONARY DISEASE. Reviewed, dictated and finalized at location A.
--- NOTE | ~2021-09-15 | CT_ITS ---
EXAMINATION: CT brain wo con DATE: 09/15/2021 11:13 INDICATION: Colitis weakness and altered mental status post multiple falls with the last few days TECHNIQUE: Computed tomography (CT) of the head was performed without intravenous contrast. Sagittal and coronal reconstructions were performed. The mA was adjusted according to patient size. Iterative reconstruction technique was employed. The dose-length product was 681.00 mGy-cm. COMPARISON: head CT dated 07/19/2021 FINDINGS: Small old lacunar infarcts involving the bilateral basal ganglia and left internal capsule. No acute intracranial hemorrhage, acute infarction or abnormal extra axial fluid collection. Symmetric promine nce of the sulci and ventricles consistent with moderate age-appropriate diffuse cerebral volume loss . No mass/mass effect. Prominent mucous retention cyst at the inferior aspect of the right maxillary sinus. Mild mucosal thickening in the left maxillary sinus the orbits are normal. Small bilateral mas toid effusions. Intracranial calcified cerebral atherosclerosis is noted. IMPRESSION: 1. Unchanged old infarcts involving the bilateral basal ganglia and left internal capsule. No acute i ntracranial process. Reviewed, dictated and finalized at location A. IMPRESSION: 1. Unchanged old infarcts involving the bilateral basal ganglia and left market research intern al capsule. No acute intracranial process.
--- NOTE | 2021-09-15 11:09 | PC.NURSE ---
Patient off unit to CT.
[2021-09-15] MEDS: SODIUM CHLORIDE 0.9% IV 1,000 ML 999 ML IV CONT (11:33)
[2021-09-15 11:43] LABS: Appearance Urine Turbid (Clear); Bilirubin Urine 1+ (Negative); Blood Urine 3+ (Negative); Color Urine Yellow (Yellow); Glucose Urine UA Negative (Negative); Ketones Urine Trace mg/dL (Negative); Leukocyte Esterase Ur 3+ LEU/UL (Negative); Nitrate Urine Positive (Negative); Protein Urine 3+ mg/dL (Negative); Specific Grav Ur >= 1.030 (1.001-1.035); Urobilinogen Urine 0.2 mg/dL (<2.0); pH Urine 5.5 (5.0-9.0)
[2021-09-15 11:51] LABS: Bacteria Urine 4+ /hpf; Mucus Urine Few /lpf; RBC Urine >75 /hpf (0-2); Squamous Epithelial Cell Urine Moderate /hpf (Few); WBC Clumps Urine Present /HPF; WBC Urine >75 /hpf
[2021-09-15 11:59] LABS: Basophils Percent Auto 0.3 % (0.2-1.2); Eosinophils Percent Auto 0.1 % (0-4.4); Hematocrit 36.9 % (37.0-47.0); Hemoglobin 11.1 g/dL (12.0-15.0); Immature Granulocyte Absolute 0.05 K/mm3 (0.00-0.031); Immature Granulocyte Percent A 0.4 % (0-0.5); Lymphocytes Absolute Auto 1.02 K/mm3 (0.9-3.2); Lymphocytes Percent Auto 8.8 % (18.3-44.2); Mean Corpuscular HGB Conc 30.1 g/dl (32-36); Mean Corpuscular Hemoglobin 25.4 pg (26-34); Mean Corpuscular Volume 84.4 fl (80-100); Mean Platelet Volume 11.6 fl (7.4-10.4); Monocytes Absolute Auto 0.8 K/mm3 (0.1-0.6); Monocytes Percent Auto 6.7 % (2.6-8.5); Neutrophils Absolute Auto 9.8 K/mm3 (1.3-6.7); Neutrophils Percent Auto 83.7 % (45.5-73.1); Platelet Count Result 208 k/mm3 (150-375); Red Blood Count 4.37 M/mm3 (4.2-5.4); Red Cell Distribution Width 15.4 % (11.5-14.5); White Blood Count 11.7 K/mm3 (4.5-10.0)
[2021-09-15 12:02] LABS: Add Urine Microscopic? YES
[2021-09-15 12:09] LABS: Alanine Aminotransferase 34 U/L (6-35); Albumin Level 3.6 g/dL (3.5-5.1); Alkaline Phosphatase 80 U/L (38-126); Anion Gap 10 mmol/L (8-16); Aspartate Amino Transferase 71 U/L (14-36); Bilirubin,Total 0.4 mg/dL (0.2-1.3); Blood Urea Nitrogen 37 mg/dL (7-17); Calcium 9.9 mg/dL (8.4-10.2); Carbon Dioxide 23 mmol/L (22-30); Chloride 106 mmol/L (98-107); Estimated CRCL calculation 20 ml/min; Estimated Glomerular Filt Rate 29; Glucose 100 mg/dL (65-110); Potassium 3.5 mmol/L (3.4-5.0); Sodium 139 mmol/L (137-145)
--- NOTE | 2021-09-15 13:05 | ED.WEAKNESS ---
HPI - Weakness General Chief complaint: Weakness Stated complaint: weakness, mult falls, ams x approx 4 days Time Seen by Provider: 09/15/21 10:43 History of Present Illness HPI Narrative: Patient is a 85-year-old female who presents ER with multiple falls. According to daughter she is been finding her on the ground on surveillance videos. Today she slumped over her walker. She has dementia and cannot give a history. Patient is also had foul-smelling urine. Related Data Home Medications Medication Instructions Recorded Confirmed metoprolol succinate 25 mg 25 mg PO DAILY 05/17/20 09/15/21 tablet,extended release 24 hr pravastatin 40 mg tablet 40 mg PO HS 05/17/20 09/15/21 donepezil 5 mg tablet 1 tablet PO HS 09/15/21 09/15/21 Allergies Allergy/AdvReac Type Severity Reaction Status Date / Time Quinolones Allergy Mild unsure Verified 12/30/20 17:51 ciprofloxacin Allergy Unknown unsure Verified 12/30/20 17:51 penicillin G Allergy Unknown unsure Verified 12/30/20 17:51 Penicillins Allergy Unknown unsure Verified 12/30/20 17:51 tetracycline Allergy Unknown unsure Verified 12/30/20 17:51 Review of Systems Review of Systems: ROS unobtainable: Yes unobtainable due to mental status PMFSH Past Medical History Medical History (Updated 09/15/21 @ 13:06 by Eddy Tolbert MD) Dementia History of CVA (cerebrovascular accident) Per CT scanChronic lacunar infarct of left basal ganglia Cerebral atherosclerosis and chronic small vessel ischemic changes of the cerebral white matter Prominent central and cortical cerebral and cerebellar atrophy No acute intracranial finding or skull fracture 12/30/2020 History of hypertension Hyperlipidemia Hypertension Surgical History Surgical History (Updated 12/30/20 @ 23:30 by Brandie Nathan NP) H/O: hysterectomy Hx of cholecystectomy Family History Family History Father Patient's father is Cerebrovascular accident Mother Patient's mother is Family history of malignant neoplasm of breast in first degree relative Breast cancer Social History Social History (Updated 12/30/20 @ 23:35 by Brandie Nathan NP) Social History: According to her old records the patient quit in 1987 and she was a social drinker. She lives home alone. She is listed as . She tells me she has 1 daughter. 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 She is listed as a full code and her daughter is the durable power fuse cutter for healthcare. Code status full code Smoking packs per day: 1 Smoking cigarettes per day: 20.0 Years smoked: 20 Smoking pack-years: 20.00 Smoking status: Former smoker Alcohol intake: never Substance use: never Substance use type: does not use Gender identity (if verbalized by the patient): Female Spiritual care concerns: No Exam Narrative: GENERAL: Well-appearing, well-nourished, and in no acute distress. HEAD: Normocephalic, atraumatic. EYES: PERRLA and EOMI. ENT: Mucous membranes moist. CHEST: Clear to auscultation. No respiratory distress. HEART: Regular rate and rhythm. Normal peripheral pulses. ABDOMEN: Soft, nontender, nondistended. EXTREMITIES: Normal range of motion. No edema. SKIN: Warm, dry, no rash. NEURO: Alert and oriented x2. PSYCH: Normal mood and affect. Course Course Emergency Course: Admit to hospitalist service for fluids and IV antibiotics. Vital Signs Vital signs: Vital Signs Temperature 97.7 F 09/15/21 10:28 Pulse Rate 70 09/15/21 10:28 Respiratory Rate 16 09/15/21 10:28 Blood Pressure 104/49 L 09/15/21 10:28 Pulse Oximetry 96 09/15/21 10:28 Oxygen Delivery Room Air 09/15/21 10:28 Temperature 98.1 F 09/15/21 16:13 Pulse Rate 69 09/15/21 16:13 Respiratory Rate 16 09/15/21 16:13 Blood Pressure 148/51 H 09/15/21 16:13 Pulse Oximetry 98 09/15/21 16:
[2021-09-15 14:41] LABS: SARS-CoV-2 RNA PCR Negative
--- NOTE | 2021-09-15 15:49 | ADMGEN ---
This patient, Janis Whittington, was admitted to 2 Medical Room 260-. Patient/family oriented to hospital policies and general routines including ID bracelet, bed and alarms, visiting hours, pain management, procedures, bathroom and other care routines, personal items, smoking policy, room service/diet, and visiting hours. Information on how to activate the Rapid Response Team has been discussed. Patient/Family are encouraged to report perceived risks to care and to ask questions if they do not understand what they are told or what they should do.
[2021-09-15] MEDS: SODIUM CHLORIDE 0.9% IV 1,000 ML 100 ML IV CONT (16:06)
--- NOTE | 2021-09-15 18:27 | PM.IMHP ---
H&P: HPI History of Present Illness Date/Time: Patient was placed observation status for expected length of stay less than 23 hours for management, will plan to re-evaluate tomorrow for improvement. 09/15/21 18:27 Chief Complaint: Generalized weakness Narrative: Ms. Whittington is an 85-year-old female who presented to the emergency room via EMS with multiple falls and confusion. Patient's daughter is at bedside states that patient fell on Wednesday after taking quite some time to get out of bed. Patient's daughter states that the patient was in her recliner had gotten up to get dressed and was going back to the recliner and slid to the floor missing the recliner when she went to sit down. Patient's grandson and came over to patient's house and attempted to help patient off the floor and the patient states she had to go to the bathroom, patient had already been incontinent of urine. Patient's daughter states later that evening the patient became increasingly confused. Patient's daughter states the patient was also complaining bilateral lower extremity pain, but this is nothing new since she had recently been diagnosed with peripheral vascular disease as dizzy vascular surgery in the next few weeks for evaluation. At this point time is very difficult to get any past medical history or review of systems from the patient secondary to her confusion. Upon evaluation in emergency room patient was noted to have a urinary tract infection. Patient was also noted to have a mild acute kidney injury. Patient's daughter states the patient had not been eating or drinking as well as she normally had over the weekend. Per patient's daughter and previous records patient does have an underlying history of dementia, hypertension, dyslipidemia, and CVA. Review of Systems Review of Systems: I am unable to obtain a full review of systems secondary to patient's confusion. [facility] Past Medical History Medical History (Updated 09/15/21 @ 13:06 by Eddy Tolbert MD) Dementia History of CVA (cerebrovascular accident) Per CT scanChronic lacunar infarct of left basal ganglia Cerebral atherosclerosis and chronic small vessel ischemic changes of the cerebral white matter Prominent central and cortical cerebral and cerebellar atrophy No acute intracranial finding or skull fracture 12/30/2020 History of hypertension Hyperlipidemia Hypertension Surgical History Surgical History (Updated 12/30/20 @ 23:30 by Brandie Nathan NP) H/O: hysterectomy Hx of cholecystectomy Family History Family History Father Patient's father is Cerebrovascular accident Mother Patient's mother is Family history of malignant neoplasm of breast in first degree relative Breast cancer Social History Social History (Updated 12/30/20 @ 23:35 by Brandie Nathan NP) Social History: According to her old records the patient quit in 1987 and she was a social drinker. She lives home alone. She is listed as . She tells me she has 1 daughter. She used to work for [employer]. She is . She is listed as a full code and her daughter is the durable power managing attorney for healthcare. Code status full code Smoking packs per day: 1 Smoking cigarettes per day: 20.0 Years smoked: 20 Smoking pack-years: 20.00 Smoking status: Former smoker Alcohol intake: never Substance use: never Substance use type: does not use Gender identity (if verbalized by the patient): Female Spiritual care concerns: No Meds Home Medications and Allergies Home Medications Medication Instructions Recorded Confirmed Type metoprolol succinate 25 mg 25 mg PO DAILY 05/17/20 09/15/21 History tablet,extended release 24 hr pravastatin 40 mg tablet 40 mg PO HS 05/17/20 09/15/21 History donepezil 5 mg tablet 1 tablet PO HS 09/15/21 09/15/21 History Allergies Allergy/
[2021-09-15] MEDS: PRAVASTATIN SODIUM 20 MG TABLET 40 MG PO (20:24)
[2021-09-15] MEDS: HEPARIN SODIUM 5,000 UNITS/ML VIAL 5000 UNITS SUB-Q (20:24)
[2021-09-15] MEDS: DONEPEZIL HCL 5 MG TABLET PO (20:24)
[2021-09-16] MEDS: SODIUM CHLORIDE 0.9% IV 1,000 ML 100 ML IV CONT (02:41)
[2021-09-16 04:57] VITALS: BP 145/63; PULSE 70; RESP 18; TEMP 36.7; O2SAT 95
[2021-09-16 05:42] LABS: Basophils Percent Auto 0.4 % (0.2-1.2); Eosinophils Percent Auto 0.3 % (0-4.4); Hematocrit 29.9 % (37.0-47.0); Hemoglobin 9.4 g/dL (12.0-15.0); Immature Granulocyte Absolute 0.04 K/mm3 (0.00-0.031); Immature Granulocyte Percent A 0.5 % (0-0.5); Lymphocytes Absolute Auto 1.97 K/mm3 (0.9-3.2); Lymphocytes Percent Auto 25.7 % (18.3-44.2); Mean Corpuscular HGB Conc 31.4 g/dl (32-36); Mean Corpuscular Hemoglobin 25.7 pg (26-34); Mean Corpuscular Volume 81.7 fl (80-100); Mean Platelet Volume 10.9 fl (7.4-10.4); Monocytes Absolute Auto 0.7 K/mm3 (0.1-0.6); Monocytes Percent Auto 8.5 % (2.6-8.5); Neutrophils Percent Auto 64.6 % (45.5-73.1); Platelet Count Result 160 k/mm3 (150-375); Red Blood Count 3.66 M/mm3 (4.2-5.4); Red Cell Distribution Width 15.2 % (11.5-14.5); White Blood Count 7.7 K/mm3 (4.5-10.0)
[2021-09-16 06:05] LABS: Anion Gap 3 mmol/L (8-16); Blood Urea Nitrogen 25 mg/dL (7-17); Carbon Dioxide 23 mmol/L (22-30); Chloride 111 mmol/L (98-107); Estimated CRCL calculation 41 ml/min; Estimated Glomerular Filt Rate > 60; Glucose 93 mg/dL (65-110); Magnesium 1.7 mg/dL (1.6-2.3); Potassium 3.4 mmol/L (3.4-5.0); Sodium 137 mmol/L (137-145)
[2021-09-16 09:19] VITALS: PULSE 70
[2021-09-16] MEDS: METOPROLOL SUCCINATE EXT REL 25 MG TABCR PO (09:19)
[2021-09-16] MEDS: HEPARIN SODIUM 5,000 UNITS/ML VIAL 5000 UNITS SUB-Q ×2 (09:19→21:35)
--- NOTE | 2021-09-16 10:59 | PM.IMPN ---
Progress Note: A&P Assessment and Plan (1) Acute UTI: Code(s): N39.0 - Urinary tract infection, site not specified Status: Acute Assessment and Plan: Patient received a dose of Rocephin in the emergency room. Will continue Rocephin. Will await culture and sensitivity and adjust antibiotics as needed per culture and sensitivity. (2) NO (acute kidney injury): Code(s): N17.9 - Acute kidney failure, unspecified Status: Acute Assessment and Plan: Patient does have acute kidney injury noted on chemistry panel. creatinine 1.7 admission. Resolved now with IV hydration. Due to poor intake will keep her on IV fluid today but lower the rate to 50 cc an hour (3) Generalized weakness: Code(s): R53.1 - Weakness Status: Acute Assessment and Plan: Patient's generalized weakness is most likely secondary to her urinary tract infection and confusion. Patient also does have underlying dementia. Patient's daughter states she does not feel that she can safely take her mother home at this point. She is unsure she can take her mother home at any point since her mother has been declining over the last few months. PT/OT to evaluate and treat for possible rehab versus long-term senior living facility placement. (4) Anemia: Code(s): D64.9 - Anemia, unspecified Status: Acute Assessment and Plan: Mild anemia. With hydration worsened today will continue to monitor could be hemodilutional Plan dementia History of CVA Hypertension Hyperlipidemia Peripheral vascular disease recently diagnosed follow-up with vascular surgery as outpatient basis is planned DVT prophylaxis: Heparin subQ Code status full code Subjective Date/time seen: 09/16/21 10:59 Interval history: HPI: Ms. Whittington is an 85-year-old female who presented to the emergency room via EMS with multiple falls and confusion.? Patient's daughter is at bedside states that patient fell on Wednesday after taking quite some time to get out of bed.? Patient's daughter states that the patient was in her recliner had gotten up to get dressed and was going back to the recliner and slid to the floor missing the recliner when she went to sit down.? Patient's grandson and came over to patient's house and attempted to help patient off the floor and the patient states she had to go to the bathroom, patient had already been incontinent of urine.? Patient's daughter states later that evening the patient became increasingly confused.? Patient's daughter states the patient was also complaining bilateral lower extremity pain, but this is nothing new since she had recently been diagnosed with peripheral vascular disease as dizzy vascular surgery in the next few weeks for evaluation.? At this point time is very difficult to get any past medical history or review of systems from the patient secondary to her confusion.? Upon evaluation in emergency room patient was noted to have a urinary tract infection.? Patient was also noted to have a mild acute kidney injury.? Patient's daughter states the patient had not been eating or drinking as well as she normally had over the weekend. Per patient's daughter and previous records patient does have an underlying history of dementia, hypertension, dyslipidemia, and CVA. 09/16/2021 no overnight events. Patient denies any complaints. Reports pain in his left leg. She knows she is at [facility]. Review of Systems Review of Systems: All systems reviewed & are unremarkable except as noted in HPI and below (HPI) Exam Narrative: Constitutional: Patient is well-nourished in no acute distress. Patient is alert and oriented to place and person not to time HEENT: Moist mucous membranes. No scleral icterus. No lymphadenopathy. Neck: No carotid bruits noted no JVD noted Lungs: Lung sounds are clear to auscultation bilaterally. No accessory muscle use. No rhonchi, rales, or wheezes noted. Cardiovascular: Ap
[2021-09-16 14:00] VITALS: BP 145/56; PULSE 67; RESP 16; TEMP 36.8; O2SAT 97
[2021-09-16] MEDS: SODIUM CHLORIDE 0.9% IV 1,000 ML 50 ML IV CONT (17:51)
[2021-09-16 18:38] LABS: SARS-CoV-2 RNA PCR Negative
[2021-09-16 20:49] VITALS: BP 164/51; PULSE 60; RESP 20; TEMP 36.5; O2SAT 95
[2021-09-16] MEDS: PRAVASTATIN SODIUM 20 MG TABLET 40 MG PO (21:35)
[2021-09-16] MEDS: DONEPEZIL HCL 5 MG TABLET PO (21:35)
[2021-09-17 03:19] VITALS: BP 163/63; PULSE 59; RESP 20; TEMP 36.7; O2SAT 96
[2021-09-17 06:05] LABS: Basophils Percent Auto 0.5 % (0.2-1.2); Eosinophils Absolute Auto 0.1 K/mm3 (0-0.3); Eosinophils Percent Auto 1.3 % (0-4.4); Hematocrit 31.4 % (37.0-47.0); Immature Granulocyte Absolute 0.03 K/mm3 (0.00-0.031); Immature Granulocyte Percent A 0.5 % (0-0.5); Lymphocytes Absolute Auto 1.48 K/mm3 (0.9-3.2); Lymphocytes Percent Auto 24.4 % (18.3-44.2); Mean Corpuscular HGB Conc 31.8 g/dl (32-36); Mean Corpuscular Hemoglobin 25.4 pg (26-34); Mean Corpuscular Volume 79.9 fl (80-100); Mean Platelet Volume 11.5 fl (7.4-10.4); Monocytes Absolute Auto 0.5 K/mm3 (0.1-0.6); Monocytes Percent Auto 7.7 % (2.6-8.5); Neutrophils Percent Auto 65.6 % (45.5-73.1); Platelet Count Result 176 k/mm3 (150-375); Red Blood Count 3.93 M/mm3 (4.2-5.4); Red Cell Distribution Width 14.7 % (11.5-14.5); White Blood Count 6.1 K/mm3 (4.5-10.0)
[2021-09-17 06:27] LABS: Alanine Aminotransferase 46 U/L (6-35); Alkaline Phosphatase 69 U/L (38-126); Anion Gap 3 mmol/L (8-16); Aspartate Amino Transferase 63 U/L (14-36); Bilirubin,Total 0.3 mg/dL (0.2-1.3); Blood Urea Nitrogen 15 mg/dL (7-17); Calcium 9.2 mg/dL (8.4-10.2); Carbon Dioxide 24 mmol/L (22-30); Chloride 109 mmol/L (98-107); Estimated CRCL calculation 46 ml/min; Estimated Glomerular Filt Rate > 60; Glucose 94 mg/dL (65-110); Magnesium 1.5 mg/dL (1.6-2.3); Potassium 3.2 mmol/L (3.4-5.0); Sodium 136 mmol/L (137-145)
[2021-09-17 09:30] VITALS: PULSE 59
[2021-09-17] MEDS: METOPROLOL SUCCINATE EXT REL 25 MG TABCR PO (09:30)
[2021-09-17] MEDS: HEPARIN SODIUM 5,000 UNITS/ML VIAL 5000 UNITS SUB-Q ×2 (09:30→21:36)
--- NOTE | 2021-09-17 12:23 | PM.IMPN ---
Progress Note: A&P Assessment and Plan (1) Acute UTI: Code(s): N39.0 - Urinary tract infection, site not specified Status: Acute Assessment and Plan: Patient received a dose of Rocephin in the emergency room. Will continue Rocephin. E coli pansensitive to on urine culture. Continue Rocephin (2) NO (acute kidney injury): Code(s): N17.9 - Acute kidney failure, unspecified Status: Acute Assessment and Plan: Patient does have acute kidney injury noted on chemistry panel. creatinine 1.7 admission. Resolved now with IV hydration. Due to poor intake will keep her on IV fluid today but lower the rate to 50 cc an hour. Renal failure her resolved (3) Generalized weakness: Code(s): R53.1 - Weakness Status: Acute Assessment and Plan: Patient's generalized weakness is most likely secondary to her urinary tract infection and confusion. Patient also does have underlying dementia. Patient's daughter states she does not feel that she can safely take her mother home at this point. She is unsure she can take her mother home at any point since her mother has been declining over the last few months. PT/OT to evaluate and treat for possible rehab versus long-term assisted facility placement. PT OT to see and recommends rehab placement (4) Anemia: Code(s): D64.9 - Anemia, unspecified Status: Acute Assessment and Plan: Mild anemia. With hydration worsened today will continue to monitor could be hemodilutional H&H is stable today no signs of active bleeding Plan dementia History of CVA Hypertension Hyperlipidemia Peripheral vascular disease recently diagnosed follow-up with vascular surgery as outpatient basis is planned DVT prophylaxis: Heparin subQ Code status full code Subjective Date/time seen: 09/17/21 12:23 Interval history: HPI: Ms. Whittington is an 85-year-old female who presented to the emergency room via EMS with multiple falls and confusion.? Patient's daughter is at bedside states that patient fell on Wednesday after taking quite some time to get out of bed.? Patient's daughter states that the patient was in her recliner had gotten up to get dressed and was going back to the recliner and slid to the floor missing the recliner when she went to sit down.? Patient's grandson and came over to patient's house and attempted to help patient off the floor and the patient states she had to go to the bathroom, patient had already been incontinent of urine.? Patient's daughter states later that evening the patient became increasingly confused.? Patient's daughter states the patient was also complaining bilateral lower extremity pain, but this is nothing new since she had recently been diagnosed with peripheral vascular disease as dizzy vascular surgery in the next few weeks for evaluation.? At this point time is very difficult to get any past medical history or review of systems from the patient secondary to her confusion.? Upon evaluation in emergency room patient was noted to have a urinary tract infection.? Patient was also noted to have a mild acute kidney injury.? Patient's daughter states the patient had not been eating or drinking as well as she normally had over the weekend. Per patient's daughter and previous records patient does have an underlying history of dementia, hypertension, dyslipidemia, and CVA. 09/16/2021 no overnight events. Patient denies any complaints. Reports pain in his left leg. She knows she is at [facility]. 09/17/2021 no overnight events. Vitals reviewed. Patient still minimally verbal. Answer some questions which are appropriate. She is hard of hearing. Tired Review of Systems Review of Systems: All systems reviewed & are unremarkable except as noted in HPI and below (HPI) Exam Narrative: Constitutional: Patient is well-nourished in no acute distress. Patient is alert and oriented to place and person not to time HEENT: [place]
[2021-09-17] MEDS: SODIUM CHLORIDE 0.9% IV 1,000 ML 50 ML IV CONT (12:34)
[2021-09-17 13:44] VITALS: BP 181/68; PULSE 72; RESP 16; TEMP 36.7; O2SAT 100
--- NOTE | 2021-09-17 15:06 | PCOTNOTE ---
Patient not seen for OT this date. Will continue per plan of care.
[2021-09-17] MEDS: POTASSIUM CHLORIDE 20 MEQ PACKET (FOR LIQUID) 40 MEQ PO (15:43)
[2021-09-17] MEDS: amLODIPine BESYLATE 5 MG TABLET PO (15:44)
[2021-09-17] MEDS: DONEPEZIL HCL 5 MG TABLET PO (21:36)
[2021-09-17] MEDS: PRAVASTATIN SODIUM 20 MG TABLET 40 MG PO (21:36)
[2021-09-17] MEDS: hydrALAZINE HCL 20 MG/ML VIAL 10 MG IV PUSH (21:36)
[2021-09-17 21:44] VITALS: BP 212/90; PULSE 116; RESP 20; TEMP 37.2; O2SAT 97
[2021-09-17 23:45] VITALS: BP 181/84; PULSE 120; RESP 24; TEMP 36.6; O2SAT 98
[2021-09-18] VITALS (10 sets, daily range): BP systolic 90–179; BP diastolic 44–80; PULSE 60–130; RESP 16–27; TEMP 36.4–37.1; O2SAT 92–100
[2021-09-18] MEDS: FUROSEMIDE INJ 40 MG/4 ML VIAL IV PUSH (00:01)
[2021-09-18] MEDS: ALBUTEROL SULFATE NEB 2.5 MG/3 ML INH INHALATION (01:43)
[2021-09-18] MEDS: IPRATROPIUM BR 0.02% INH SOLN 0.5 MG/2.5 ML VIAL INHALATION (01:44)
[2021-09-18] MEDS: METOPROLOL TARTRATE 50 MG TAB PO (02:01)
[2021-09-18] MEDS: ACETAMINOPHEN 325 MG TABLET 650 MG PO ×2 (03:06→21:00)
[2021-09-18 06:28] LABS: Basophils Percent Auto 0.3 % (0.2-1.2); Hematocrit 36.8 % (37.0-47.0); Hemoglobin 12.2 g/dL (12.0-15.0); Immature Granulocyte Absolute 0.04 K/mm3 (0.00-0.031); Immature Granulocyte Percent A 0.4 % (0-0.5); Lymphocytes Absolute Auto 1.12 K/mm3 (0.9-3.2); Lymphocytes Percent Auto 11.6 % (18.3-44.2); Mean Corpuscular HGB Conc 33.2 g/dl (32-36); Mean Corpuscular Hemoglobin 25.7 pg (26-34); Mean Corpuscular Volume 77.5 fl (80-100); Mean Platelet Volume 11.6 fl (7.4-10.4); Monocytes Absolute Auto 0.9 K/mm3 (0.1-0.6); Monocytes Percent Auto 8.8 % (2.6-8.5); Neutrophils Absolute Auto 7.6 K/mm3 (1.3-6.7); Neutrophils Percent Auto 78.9 % (45.5-73.1); Platelet Count Result 242 k/mm3 (150-375); Red Blood Count 4.75 M/mm3 (4.2-5.4); White Blood Count 9.6 K/mm3 (4.5-10.0)
[2021-09-18 06:38] LABS: Alanine Aminotransferase 47 U/L (6-35); Albumin Level 3.4 g/dL (3.5-5.1); Alkaline Phosphatase 77 U/L (38-126); Anion Gap 7 mmol/L (8-16); Aspartate Amino Transferase 43 U/L (14-36); Bilirubin,Total 0.3 mg/dL (0.2-1.3); Blood Urea Nitrogen 16 mg/dL (7-17); Calcium 9.3 mg/dL (8.4-10.2); Carbon Dioxide 26 mmol/L (22-30); Chloride 98 mmol/L (98-107); Estimated CRCL calculation 37 ml/min; Estimated Glomerular Filt Rate 60; Glucose 123 mg/dL (65-110); Magnesium 1.3 mg/dL (1.6-2.3); Potassium 3.6 mmol/L (3.4-5.0); Sodium 131 mmol/L (137-145)
[2021-09-18] MEDS: amLODIPine BESYLATE 5 MG TABLET PO (08:55)
[2021-09-18] MEDS: HEPARIN SODIUM 5,000 UNITS/ML VIAL 5000 UNITS SUB-Q ×2 (08:55→20:43)
[2021-09-18] MEDS: METOPROLOL SUCCINATE EXT REL 25 MG TABCR PO (08:55)
[2021-09-18] MEDS: HYDROcodone/acetaminophen (*CRX) 5-325 MG TABLET 1 TAB PO (11:01)
--- NOTE | 2021-09-18 17:09 | PM.IMPN ---
Progress Note: A&P Assessment and Plan (1) Acute UTI: Code(s): N39.0 - Urinary tract infection, site not specified Status: Acute Assessment and Plan: Patient received a dose of Rocephin in the emergency room. Will continue Rocephin. E coli pansensitive to on urine culture. Continue Rocephin (2) NO (acute kidney injury): Code(s): N17.9 - Acute kidney failure, unspecified Status: Acute Assessment and Plan: Patient does have acute kidney injury noted on chemistry panel. creatinine 1.7 admission. Resolved now with IV hydration. Stopped IV fluids (3) Generalized weakness: Code(s): R53.1 - Weakness Status: Acute Assessment and Plan: Patient's generalized weakness is most likely secondary to her urinary tract infection and confusion. Patient also does have underlying dementia. Patient's daughter states she does not feel that she can safely take her mother home at this point. She is unsure she can take her mother home at any point since her mother has been declining over the last few months. PT/OT to evaluate and treat for possible rehab versus long-term assisted facility placement. PT OT to see and recommends rehab placement she has been accepted at a nursing facility waiting medical stabilization for discharge (4) Anemia: Code(s): D64.9 - Anemia, unspecified Status: Acute Assessment and Plan: Mild anemia. With hydration worsened , will continue to monitor could be hemodilutional H&H is stable with no signs of active bleeding Plan dementia History of CVA Hypertension worsened overnight added on amlodipine 5 mg. Metoprolol 25 mg. Received a dose of Lasix 09/17. Blood pressure lowish this afternoon. Will continue to monitor and adjust medication as needed. Hyperlipidemia Peripheral vascular disease recently diagnosed follow-up with vascular surgery as outpatient basis is planned DVT prophylaxis: Heparin subQ Code status full code Subjective Date/time seen: 09/18/21 17:09 Interval history: HPI: Ms. Whittington is an 85-year-old female who presented to the emergency room via EMS with multiple falls and confusion.? Patient's daughter is at bedside states that patient fell on Wednesday after taking quite some time to get out of bed.? Patient's daughter states that the patient was in her recliner had gotten up to get dressed and was going back to the recliner and slid to the floor missing the recliner when she went to sit down.? Patient's grandson and came over to patient's house and attempted to help patient off the floor and the patient states she had to go to the bathroom, patient had already been incontinent of urine.? Patient's daughter states later that evening the patient became increasingly confused.? Patient's daughter states the patient was also complaining bilateral lower extremity pain, but this is nothing new since she had recently been diagnosed with peripheral vascular disease as dizzy vascular surgery in the next few weeks for evaluation.? At this point time is very difficult to get any past medical history or review of systems from the patient secondary to her confusion.? Upon evaluation in emergency room patient was noted to have a urinary tract infection.? Patient was also noted to have a mild acute kidney injury.? Patient's daughter states the patient had not been eating or drinking as well as she normally had over the weekend. Per patient's daughter and previous records patient does have an underlying history of dementia, hypertension, dyslipidemia, and CVA. 09/16/2021 no overnight events. Patient denies any complaints. Reports pain in his left leg. She knows she is at [facility]. 09/17/2021 no overnight events. Vitals reviewed. Patient still minimally verbal. Answer some questions which are appropriate. She is hard of hearing. Tired 09/18/2021 overnight events noted. Blood pressure was elevated. Chest x-ray was done which reveale
[2021-09-18] MEDS: DONEPEZIL HCL 5 MG TABLET PO (20:43)
[2021-09-18] MEDS: PRAVASTATIN SODIUM 20 MG TABLET 40 MG PO (20:43)
[2021-09-19 05:21] VITALS: BP 132/50; PULSE 61; RESP 20; TEMP 36.6; O2SAT 95
[2021-09-19 05:36] LABS: Basophils Percent Auto 0.4 % (0.2-1.2); Eosinophils Percent Auto 0.3 % (0-4.4); Hematocrit 39.8 % (37.0-47.0); Hemoglobin 11.8 g/dL (12.0-15.0); Immature Granulocyte Absolute 0.05 K/mm3 (0.00-0.031); Immature Granulocyte Percent A 0.7 % (0-0.5); Lymphocytes Absolute Auto 2.12 K/mm3 (0.9-3.2); Lymphocytes Percent Auto 29.9 % (18.3-44.2); Mean Corpuscular HGB Conc 29.6 g/dl (32-36); Mean Corpuscular Hemoglobin 25.4 pg (26-34); Mean Corpuscular Volume 85.6 fl (80-100); Mean Platelet Volume 10.8 fl (7.4-10.4); Monocytes Absolute Auto 0.8 K/mm3 (0.1-0.6); Neutrophils Absolute Auto 4.1 K/mm3 (1.3-6.7); Neutrophils Percent Auto 57.7 % (45.5-73.1); Platelet Count Result 176 k/mm3 (150-375); Red Blood Count 4.65 M/mm3 (4.2-5.4); Red Cell Distribution Width 15.5 % (11.5-14.5); White Blood Count 7.1 K/mm3 (4.5-10.0)
[2021-09-19 05:51] LABS: Alanine Aminotransferase 47 U/L (6-35); Albumin Level 3.5 g/dL (3.5-5.1); Alkaline Phosphatase 69 U/L (38-126); Anion Gap 6 mmol/L (8-16); Aspartate Amino Transferase 42 U/L (14-36); Bilirubin,Total 0.3 mg/dL (0.2-1.3); Blood Urea Nitrogen 26 mg/dL (7-17); Calcium 9.2 mg/dL (8.4-10.2); Carbon Dioxide 24 mmol/L (22-30); Chloride 100 mmol/L (98-107); Estimated CRCL calculation 33 ml/min; Estimated Glomerular Filt Rate 53; Glucose 86 mg/dL (65-110); Magnesium 1.7 mg/dL (1.6-2.3); Potassium 3.4 mmol/L (3.4-5.0); Sodium 130 mmol/L (137-145)
[2021-09-19 09:03] VITALS: PULSE 71
[2021-09-19] MEDS: METOPROLOL SUCCINATE EXT REL 25 MG TABCR PO (09:03)
[2021-09-19] MEDS: HEPARIN SODIUM 5,000 UNITS/ML VIAL 5000 UNITS SUB-Q (09:03)
[2021-09-19] MEDS: amLODIPine BESYLATE 5 MG TABLET PO (09:03)
[2021-09-19] MEDS: ACETAMINOPHEN 325 MG TABLET 650 MG PO (09:09)
--- NOTE | 2021-09-19 10:30 | PM.DS ---
DS: Admitting Diagnosis Discharge Date 09/19/2021 Admitting Diagnosis generalized weakness DS: Discharge Diagnosis Discharge Diagnosis (1) Acute UTI: Code(s): N39.0 - Urinary tract infection, site not specified Status: Acute Assessment and Plan: Patient was noted to have urinary tract infection. Was started on Rocephin which was continued during the hospital stay. Urine culture grew E coli which is pansensitive. Will switch to oral at discharge to complete 7 days course of antibiotics. (2) NO (acute kidney injury): Code(s): N17.9 - Acute kidney failure, unspecified Status: Acute Assessment and Plan: Patient was noted to have on admission. With creatinine of 1.7. Baseline creatinine of 1. Resolved with IV hydration. Back to baseline by the time of discharge. (3) Generalized weakness: Code(s): R53.1 - Weakness Status: Acute Assessment and Plan: Patient's generalized weakness is most likely secondary to her urinary tract infection and confusion. Patient also does have underlying dementia. And has been declining over the past few months. PT OT evaluated and suggested rehab placement. Care coordination was consulted for placement was planned to be discharged to [facility]. (4) Anemia: Code(s): D64.9 - Anemia, unspecified Status: Acute Assessment and Plan: Mild anemia which worsened during the hospital course. Suspected to be hemodilutional. Further monitoring noted stable counts. No signs of bleeding were noted throughout the hospital stay. Plan dementia History of CVA Hypertension worsened during the hospital stay. She is on metoprolol 25 mg daily. Added amlodipine 5 mg daily with improvement in her blood pressure. Will continue amlodipine 5 along with metoprolol 25 mg at discharge. Hyperlipidemia on pravastatin at home which is continued Peripheral vascular disease recently diagnosed follow-up with vascular surgery as outpatient basis is planned DVT prophylaxis: Heparin subQ Code status full code DS: Summary Hospital Course Hospital Course: See above Time Spent with Patient Time attestation: Total time spent providing and/or coordinating discharge services: 45 minutes Exam Narrative: Constitutional: Patient is well-nourished in no acute distress. Patient is alert and oriented to person not to time HEENT: Moist mucous membranes. No scleral icterus. No lymphadenopathy. Neck: No carotid bruits noted no JVD noted Lungs: Lung sounds are clear to auscultation bilaterally. No accessory muscle use. No rhonchi, rales, or wheezes noted. Cardiovascular: Apical pulse is regular rate and rhythm. S1-S2 noted, no S3 or S4 noted. No gallops, murmurs, or rubs noted. Abdomen: Soft, round, and nontender. No palpable masses. Extremities: No edema. Nontender. Skin: No rashes or lesions. Warm and dry. Skin is intact. Psychiatric: Cooperative, appropriate mood, and affect DS: Data Data Completed and Pending Labs on day of discharge: Labs from last 24 hours 09/19/21 09/19/21 05:08 05:08 WBC 7.1 RBC 4.65 Hgb 11.8 L Hct 39.8 MCV 85.6 D MCH 25.4 L MCHC 29.6 L RDW 15.5 H Plt Count 176 MPV 10.8 H Immature Gran % (Auto) 0.7 H Neut % (Auto) 57.7 Lymph % (Auto) 29.9 [place] % (Auto) 11.0 H Eos % (Auto) 0.3 Baso % (Auto) 0.4 Lymph # (Auto) 2.12 [place] # (Auto) 0.8 H Eos # (Auto) 0.0 Baso # (Auto) 0.0 Abs Immat Gran (auto) 0.05 H Absolute Neuts (auto) 4.1 Absolute Nucleated RBC 0.0 Nucleated RBC % 0.0 Sodium 130 L Potassium 3.4 Chloride 100 Carbon Dioxide 24 Anion Gap 6 L BUN 26 H D Creatinine 1.00 Estim Creat Clear Calc 33 Estimated GFR 53 L Glucose 86 Calcium 9.2 Magnesium 1.7 Total Bilirubin 0.3 AST 42 H ALT 47 H Alkaline Phosphatase 69 Total Protein 7.0 Albumin 3.5 Imaging Radiologist's impression: ITS Impressions Hedina
[2021-09-19 12:50] VITALS: BP 121/42; PULSE 64; TEMP 36.4; O2SAT 96
[2021-09-19 12:51] VITALS: BP 103/47
[2021-09-19 12:52] VITALS: BP 95/51
[2021-09-19 13:06] LABS: EDCOVIDSCREEN Positive (Negative)
[2021-09-19 14:14] LABS: SARS-CoV-2 RNA PCR Positive
--- NOTE | 2021-09-19 17:33 | PM.IMPN ---
Progress Note: A&P Assessment and Plan (1) Acute UTI: Code(s): N39.0 - Urinary tract infection, site not specified Status: Acute Assessment and Plan: Patient was noted to have urinary tract infection. Was started on Rocephin which was continued during the hospital stay. Urine culture grew E coli which is pansensitive. Will switch to oral at discharge to complete 7 days course of antibiotics. (2) NO (acute kidney injury): Code(s): N17.9 - Acute kidney failure, unspecified Status: Acute Assessment and Plan: Patient was noted to have on admission. With creatinine of 1.7. Baseline creatinine of 1. Resolved with IV hydration. Back to baseline by the time of discharge. (3) Generalized weakness: Code(s): R53.1 - Weakness Status: Acute Assessment and Plan: Patient's generalized weakness is most likely secondary to her urinary tract infection and confusion. Patient also does have underlying dementia. And has been declining over the past few months. PT OT evaluated and suggested rehab placement. Care coordination was consulted for placement was planned to be discharged to [facility]. (4) Anemia: Code(s): D64.9 - Anemia, unspecified Status: Acute Assessment and Plan: Mild anemia which worsened during the hospital course. Suspected to be hemodilutional. Further monitoring noted stable counts. No signs of bleeding were noted throughout the hospital stay. (5) COVID-19: Code(s): U07.1 - COVID-19 Status: Acute Assessment and Plan: Was recently exposed from her family. Initially was negative on admission but now positive RT PCR is positive as well Rather asymptomatic No further treatment needed Plan dementia History of CVA Hypertension worsened during the hospital stay. She is on metoprolol 25 mg daily. Added amlodipine 5 mg daily with improvement in her blood pressure. Will continue amlodipine 5 along with metoprolol 25 mg at discharge. Hyperlipidemia on pravastatin at home which is continued Peripheral vascular disease recently diagnosed follow-up with vascular surgery as outpatient basis is planned DVT prophylaxis: Heparin subQ Code status full code Subjective Date/time seen: 09/19/21 17:33 Interval history: HPI: Ms. Whittington is an 85-year-old female who presented to the emergency room via EMS with multiple falls and confusion.? Patient's daughter is at bedside states that patient fell on Wednesday after taking quite some time to get out of bed.? Patient's daughter states that the patient was in her recliner had gotten up to get dressed and was going back to the recliner and slid to the floor missing the recliner when she went to sit down.? Patient's grandson and came over to patient's house and attempted to help patient off the floor and the patient states she had to go to the bathroom, patient had already been incontinent of urine.? Patient's daughter states later that evening the patient became increasingly confused.? Patient's daughter states the patient was also complaining bilateral lower extremity pain, but this is nothing new since she had recently been diagnosed with peripheral vascular disease as dizzy vascular surgery in the next few weeks for evaluation.? At this point time is very difficult to get any past medical history or review of systems from the patient secondary to her confusion.? Upon evaluation in emergency room patient was noted to have a urinary tract infection.? Patient was also noted to have a mild acute kidney injury.? Patient's daughter states the patient had not been eating or drinking as well as she normally had over the weekend. Per patient's daughter and previous records patient does have an underlying history of dementia, hypertension, dyslipidemia, and CVA. 09/16/2021 no overnight events. Patient denies any complaints. Reports pain in his left leg. She knows she is at [facility]. 09/17/2021 no overnight
[2021-09-19 20:16] VITALS: BP 144/68; PULSE 91; RESP 18; TEMP 36.6; O2SAT 96
== END 2021-09-19 20:45 | DRG 690 ==
LOC: ANHED 13:06 → ANH2MED 13:55
PROVIDERS: Nurse Practitioner Adult Health; Admitting Provider Student in an Organized Health Care Education/Training Program; Emergency Provider Emergency Medicine; PCP Anesthesiology; Visit Provider Internal Medicine
DX: N39.0 Urinary tract infection, site not specified (principal); N17.9 Acute kidney failure, unspecified; B96.20 Unspecified Escherichia coli [E. coli] as the cause of diseases classified elsewhere; D64.9 Anemia, unspecified; F03.90 Unspecified dementia, unspecified severity, without behavioral disturbance, psychotic disturbance, mood disturbance, and anxiety; E78.5 Hyperlipidemia, unspecified; I10 Essential (primary) hypertension; I73.9 Peripheral vascular disease, unspecified; Z86.73 Personal history of transient ischemic attack (TIA), and cerebral infarction without residual deficits; Z90.49 Acquired absence of other specified parts of digestive tract; Z90.710 Acquired absence of both cervix and uterus; Z87.891 Personal history of nicotine dependence; Z20.822 Contact with and (suspected) exposure to COVID-19
CPT/HCPCS: 36415; 51701; 70450; 71045; 71046; 80048; 80053; 81001; 83735; 85025; 87077; 87086; 87088; 87186; 87426; 96361; 96365; 96366; 96372; 97110; 97161; 97166; 97530; 97535; 99285; A9270; C9803; G0378; J0360; J0696; J1644; J1940; J7030; U0003; U0005

== ENCOUNTER 2022-03-13 17:19 | Emergency (ER) | payer OTHER, SELFPAY ==
[2022-03-13] VITALS (12 sets, daily range): BP systolic 106–148; BP diastolic 35–90; PULSE 47–79; RESP 15–30; TEMP 36.8; O2SAT 93–100
--- NOTE | ~2022-03-13 | XR_ITS ---
XR chest 1V portable DATE: 03/13/2022 17:56 INDICATION: Shortness of breath. History of hypertension TECHNIQUE: Portable upright AP chest on 03/13/2022 at 1753 hours COMPARISON: 09/18/2021 portable AP chest FINDINGS: Borderline heart size. No pulmonary infiltrate or consolidation, pleural effusion or pulmon davy vascular congestion or pneumothorax. Diffuse osteopenia. IMPRESSION: No active pulmonary disease Reviewed, dictated and finalized at location A. IFIED MAINTENANCE WELDER IMPRESSION: No active pulmonary disease
--- NOTE | 2022-03-13 17:30 | ECG_ITS ---
Measurements Intervals [place] Rate: 57 P: 101 WV: 167 QRS: -9 QRSD: 85 T: 15 QT: 436 QTc: 427 Interpretive Statements SINUS BRADYCARDIA WITH SINUS ARRHYTHMIA NONSPECIFIC T-WAVE ABNORMALITY ABNORMAL ECG COMPARED TO ECG 01/02/2021 14:36:25 SINUS RHYTHM REPLACES AN ECTOPIC ATRIAL RHYTHM Electronically Signed On 03-13-2022 20:10:55 FOLDED TOWEL MACHINE OPERATOR by Bull Tovar M.D.
--- NOTE | 2022-03-13 17:46 | ED.AMS ---
HPI - Altered Mental Status General Chief Complaint: Altered Mental Status Stated Complaint: increased AMS Time Seen by Provider: 03/13/22 17:29 History of Present Illness HPI narrative: 86-year-old female with a history of dementia, strokes, hypertension, hyperlipidemia presenting with an episode of possible altered mental status. Patient resides with family and was noted to spill a drink and seemed slow to respond afterwards. Patient's family was concerned that she seemed short of breath so they placed her on oxygen. For EMS, she was saturating well on room air. On my evaluation, the patient is ANO x3. She complains that she has pain in her bilateral thighs that started when she was outside in the cold. She denies any chest pain or shortness of breath. She states that she feels fine. No headache, focal numbness or weakness, abdominal pain, nausea or vomiting, diarrhea, dysuria. Patient's daughter states that the patient seemed more confused than normal earlier today. States that she was slow to wake up after she spilled her drink. Patient's daughter is concerned that she may have a UTI as she has presented with confusion in the past. Related Data Home Medications Medication Instructions Recorded Confirmed metoprolol succinate 25 mg 25 mg PO DAILY 05/17/20 09/15/21 tablet,extended release 24 hr pravastatin 40 mg tablet 40 mg PO HS 05/17/20 09/15/21 donepezil 5 mg tablet 1 tablet PO HS 09/15/21 09/15/21 Allergies Allergy/AdvReac Type Severity Reaction Status Date / Time Quinolones Allergy Mild unsure Verified 12/30/20 17:51 ciprofloxacin Allergy Unknown unsure Verified 12/30/20 17:51 penicillin G Allergy Unknown unsure Verified 12/30/20 17:51 Penicillins Allergy Unknown unsure Verified 12/30/20 17:51 tetracycline Allergy Unknown unsure Verified 12/30/20 17:51 Review of Systems Review of Systems: All systems reviewed & are unremarkable except as noted in HPI and below PMFSH Past Medical History Medical History Dementia History of CVA (cerebrovascular accident) Per CT scanChronic lacunar infarct of left basal ganglia Cerebral atherosclerosis and chronic small vessel ischemic changes of the cerebral white matter 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 She lives home alone. She is listed as . She tells me she has 1 daughter. 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 She is listed as a full code and her daughter is the durable power student financial services counselor for healthcare. Code status full code Smoking packs per day: 1 Smoking cigarettes per day: 20.0 Years smoked: 20 Smoking pack-years: 20.00 Smoking status: Former smoker Alcohol intake: never Substance use: never Substance use type: does not use Gender identity (if verbalized by the patient): Female Spiritual care concerns: No Exam Narrative: GENERAL: Elderly female laying in bed in no acute distress HEAD: Normocephalic, atraumatic. EYES: PERRLA and EOMI. ENT: Nares clear, no rhinorrhea or epistaxis. Mucous membranes moist. NECK: Supple. CHEST: Clear to auscultation. No respiratory distress. HEART: Regular rate and rh
[2022-03-13 19:49] LABS: Influenza A QL RT-PCR Negative (Negative); Influenza B QL RT-PCR Negative (Negative); SARS-CoV-2 RNA PCR Negative
[2022-03-13 21:17] LABS: Basophils Percent Auto 0.2 % (0.2-1.2); Hematocrit 36.7 % (37.0-47.0); Hemoglobin 11.7 g/dL (12.0-15.0); Immature Granulocyte Absolute 0.04 K/mm3 (0.00-0.031); Immature Granulocyte Percent A 0.4 % (0-0.5); Lymphocytes Absolute Auto 1.48 K/mm3 (0.9-3.2); Lymphocytes Percent Auto 16.5 % (18.3-44.2); Mean Corpuscular HGB Conc 31.9 g/dl (32-36); Mean Corpuscular Hemoglobin 26.9 pg (26-34); Mean Corpuscular Volume 84.4 fl (80-100); Mean Platelet Volume 10.6 fl (7.4-10.4); Monocytes Absolute Auto 0.3 K/mm3 (0.1-0.6); Monocytes Percent Auto 3.7 % (2.6-8.5); Neutrophils Absolute Auto 7.1 K/mm3 (1.3-6.7); Neutrophils Percent Auto 79.2 % (45.5-73.1); Platelet Count Result 192 k/mm3 (150-375); Red Blood Count 4.35 M/mm3 (4.2-5.4); Red Cell Distribution Width 13.9 % (11.5-14.5)
[2022-03-13 21:26] LABS: Alanine Aminotransferase 19 U/L (6-35); Alkaline Phosphatase 93 U/L (38-126); Anion Gap 7 mmol/L (8-16); Aspartate Amino Transferase 31 U/L (14-36); Bilirubin,Total 0.4 mg/dL (0.2-1.3); Blood Urea Nitrogen 27 mg/dL (7-17); Calcium 10.1 mg/dL (8.4-10.2); Carbon Dioxide 26 mmol/L (22-30); Chloride 102 mmol/L (98-107); Estimated CRCL calculation 36 ml/min; Estimated Glomerular Filt Rate 60; Glucose 109 mg/dL (65-110); Potassium 4.6 mmol/L (3.4-5.0); Sodium 135 mmol/L (137-145)
[2022-03-13 21:27] LABS: INR 1.2; Prothrombin Time 14.6 Seconds (11.1-14.7)
[2022-03-13 21:28] LABS: Partial Thromboplastin Time 32.1 SECONDS (22.3-36.8)
[2022-03-13 21:44] LABS: Add Urine Microscopic? YES; Appearance Urine Clear (Clear); Bilirubin Urine Negative (Negative); Blood Urine 2+ (Negative); Color Urine Yellow (Yellow); Glucose Urine UA Negative (Negative); Ketones Urine 1+ mg/dL (Negative); Leukocyte Esterase Ur Negative LEU/UL (Negative); Nitrate Urine Negative (Negative); Protein Urine 1+ mg/dL (Negative); Specific Grav Ur >= 1.030 (1.001-1.035); Urobilinogen Urine 0.2 mg/dL (<2.0); pH Urine 5.5 (5.0-9.0)
[2022-03-13 21:48] LABS: Bacteria Urine Trace /hpf; Mucus Urine Rare /lpf; Squamous Epithelial Cell Urine Rare /hpf (Few)
[2022-03-13] MEDS: NITROFURANTOIN MONOHYD MACROCR 100 MG CAP PO (22:05)
--- NOTE | 2022-03-13 22:21 | PC.NURSE ---
upon removing EKG sticker. Skin tear observed to right forearm. skin tear washed with soap and water with tegaderm placed over the site.
== END 2022-03-13 22:22 | disposition home or self-care (01) ==
PROVIDERS: Emergency Provider Emergency Medicine; PCP Anesthesiology
DX: N39.0 Urinary tract infection, site not specified (principal); R41.82 Altered mental status, unspecified; Z20.822 Contact with and (suspected) exposure to COVID-19; F03.90 Unspecified dementia, unspecified severity, without behavioral disturbance, psychotic disturbance, mood disturbance, and anxiety; I10 Essential (primary) hypertension; E78.5 Hyperlipidemia, unspecified; M79.652 Pain in left thigh; M79.651 Pain in right thigh; G89.29 Other chronic pain; Z86.73 Personal history of transient ischemic attack (TIA), and cerebral infarction without residual deficits; Z90.710 Acquired absence of both cervix and uterus; Z87.891 Personal history of nicotine dependence
CPT/HCPCS: 36415; 51701; 71045; 80053; 81001; 85025; 85610; 85730; 87077; 87086; 87186; 87636; 93005; 99284; A9270

== ENCOUNTER 2022-05-21 17:52 | Inpatient (IN) | payer OTHER, SELFPAY ==
[2022-05-21] VITALS (26 sets, daily range): BP systolic 143–187; BP diastolic 54–99; PULSE 63–83; RESP 16–34; TEMP 36.6; O2SAT 96–100
--- NOTE | ~2022-05-21 | CT_ITS ---
EXAMINATION: CT brain wo con INDICATION: Transient alteration of awareness COMPARISON: 09/15/2021 TECHNIQUE: Standard unenhanced head CT. The dose-length product (DLP) was 605.33 mGy-cm. The mA was a djusted according to patient size. Iterative reconstruction technique was employed. FINDINGS: There is no acute intraparenchymal hemorrhage. No evidence of mass lesion. No evidence of a cute infarction. Again noted are old lacunar infarcts of the bilateral basal ganglia. There is also a n old lacunar infarct of the left internal capsule There is moderate periventricular and subcortical hypodensity probably related to small vessel ischemic disease. There is moderate prominence of the martinez lci and ventricles related to cerebral atrophy. Intracranial calcified cerebral atherosclerosis is no celso. There are no extra-axial collections. There is no mass effect or midline shift. The orbits and s oft tissues are unremarkable. There is a polyp or mucous retention cyst of the right maxillary sinus. IMPRESSION: 1. No acute intracranial abnormality. 2. Age related findings. Reviewed, dictated and finalized at location F. USINE AND HEARSE UPHOLSTERER
--- NOTE | ~2022-05-21 | CT_ITS ---
EXAMINATION: CT abdomen pelvis wo con DATE: 05/21/2022 22:35 INDICATION: Pelvic pain after fall TECHNIQUE: Computed tomography (CT) of the abdomen and pelvis was performed without intravenous contr ast. The dose-length product (DLP) was 478.26 mGy-cm. Automated exposure control and iterative recons truction technique were employed. COMPARISON: 07/19/2021 FINDINGS: Minimal dependent atelectasis is present in the lung bases. The heart size is normal. There is a 10 mm nodule of the left lower lobe. The liver, spleen, pancreas, gallbladder, and adrenal glan ds are normal. The kidneys are unremarkable. There is calcified atherosclerosis of the aorta and many of the other arteries. There is wall thickening of the urinary bladder with surrounding inflammatory change. No pathologically enlarged abdominal or pelvic lymph nodes are identified. No free intraperi toneal gas or evidence of bowel obstruction. There is moderate lumbar spondylosis. 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 IMPRESSION: 1. No CT correlate for the patient's symptoms. 2. 10 mm nodule of the left lower lobe. Follow-up low-dose CT in three months is recommended. Reviewed, dictated and finalized at location F. R BALER IMPRESSION: 1. No CT correlate for the patient's symptoms. 2. 10 mm nodule of the left lower lobe. Follow-up low-dose CT in three months i s recommended.
--- NOTE | ~2022-05-21 | XR_ITS ---
EXAMINATION: XR hip LT 2V w AP pelvis INDICATION: Left hip pain TECHNIQUE: AP view the pelvis and two views of the left hip are obtained. COMPARISON: 07/19/2021 FINDINGS: Bone alignment is normal. There is no fracture. There is moderate to severe osteoarthritis of the left hip with interval worsening. There is mild osteoarthritis of the right hip. Calcified ath erosclerosis is noted. IMPRESSION: 1. Osteoarthritis without acute osseous abnormality. Reviewed, dictated and finalized at location F. SORTING SUPERVISOR
--- NOTE | ~2022-05-21 | XR_ITS ---
EXAMINATION: XR knee LT min 4V DATE: 05/21/2022 19:24 INDICATION: Left knee pain TECHNIQUE: Four views of the left knee were obtained. COMPARISON: None. FINDINGS: Alignment is normal. No fracture or osteochondral lesion. There is mild tricompartmental os teoarthritis characterized by tiny marginal osteophytes. No joint effusion/synovitis. Calcified athe rosclerosis is noted. IMPRESSION: 1. No acute osseous abnormality. Reviewed, dictated and finalized at location F. SHARPSHOOTER
--- NOTE | ~2022-05-21 | XR_ITS ---
EXAMINATION: XR femur LT min 2V INDICATION: Left femur pain TECHNIQUE: Two views of the left femur are obtained on four radiographs. COMPARISON: None available FINDINGS: There is no fracture. Bone alignment is normal. There is advanced osteoarthritis of the lef t hip. Calcified atherosclerosis is noted. IMPRESSION: 1. No acute osseous abnormality. Reviewed, dictated and finalized at location F. DEVELOPER
--- NOTE | ~2022-05-21 | XR_ITS ---
EXAMINATION: XR chest 1V INDICATION: Hypertension TECHNIQUE: AP view of the chest is obtained. COMPARISON: 03/13/2022 FINDINGS: The lungs are free of acute opacities. No pleural effusion or pneumothorax. The cardiomedia stinal silhouette is normal. The visualized bones and soft tissues are unremarkable. IMPRESSION: 1. No acute cardiopulmonary abnormality. Reviewed, dictated and finalized at location F. RNET SALES ASSOCIATE
--- NOTE | 2022-05-21 18:46 | ED.FALL ---
HPI - Fall General Chief Complaint: Fall Stated Complaint: fall on floor x 3+ hours Time Seen by Provider: 05/21/22 18:45 Source: patient Mode of arrival: ambulatory Limitations: no limitations History of Present Illness HPI Narrative: The patient is an 86-year-old female with a history of dementia, CVA, HTN, HLD presenting to the emergency department for evaluation following a ground-level fall. Patient is currently alert and oriented to person place, not to time. The patient states that she tripped on a rug near her refrigerator, but is not entirely sure why she fell to the ground. She states that happened before, she could do anything about it. She denies fever or chills. No cough, chest pain or dyspnea. Patient's granddaughter at bedside helps to provide history. No recent medical illnesses. States that the patient seems to be reporting pain in the left knee, hip area. She was called by the dispensing lead who found the patient on the ground. No noted head trauma. Patient is not on any chronic anticoagulation. She has had difficulty ambulating secondary to the pain in the left lower extremity. Patient's granddaughter states that she often falls more frequently whenever she has urinary tract infections. Related Data Home Medications Medication Instructions Recorded Confirmed metoprolol succinate 25 mg 25 mg PO DAILY 05/17/20 09/15/21 tablet,extended release 24 hr pravastatin 40 mg tablet 40 mg PO HS 05/17/20 09/15/21 donepezil 5 mg tablet 1 tablet PO HS 09/15/21 09/15/21 Allergies Allergy/AdvReac Type Severity Reaction Status Date / Time Quinolones Allergy Mild unsure Verified 12/30/20 17:51 ciprofloxacin Allergy Unknown unsure Verified 12/30/20 17:51 penicillin G Allergy Unknown unsure Verified 12/30/20 17:51 Penicillins Allergy Unknown unsure Verified 12/30/20 17:51 tetracycline Allergy Unknown unsure Verified 12/30/20 17:51 Review of Systems Review of Systems: CONSTITUTIONAL: Denies fever CARDIOVASCULAR: Denies chest pain RESPIRATORY: Denies cough or dyspnea. GASTROINTESTINAL: Denies abdominal pain SKIN: Denies rash MUSCULOSKELETAL: Denies back pain, reports left knee pain NEUROLOGIC: Denies headache Limited secondary to dementia, altered mentation. ROS unobtainable: Yes unobtainable due to mental status PMFSH Past Medical History Medical History Dementia History of CVA (cerebrovascular accident) Per CT scanChronic lacunar infarct of left basal ganglia Cerebral atherosclerosis and chronic small vessel ischemic changes of the cerebral white matter 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 She lives home alone. She is listed as . She tells me she has 1 daughter. 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 She is listed as a full code and her daughter is the durable power sales support technician for healthcare. Code status full code Smoking packs per day: 1 Smoking cigarettes per day: 20.0 Years smoked: 20 Smoking pack-years: 20.00 Smoking status: Former smoker Alcohol intake: never Substance use: never Substance use type: does not use Gender identity (if verbalized by the patient): Fem
--- NOTE | 2022-05-21 18:50 | ECG_ITS ---
Measurements Intervals [place] Rate: 81 P: [place]: 0 QRS: -10 QRSD: 94 T: -15 QT: 365 QTc: 426 Interpretive Statements SINUS RHYTHM ATRIAL PREMATURE COMPLEXES VOLTAGE CRITERIA FOR LVH NONSPECIFIC T-WAVE ABNORMALITY- ANTEROLAT/INF LEADS BASELINE ARTIFACT- II, III, AVR, AVL, AVF, V4-V5 ABNORMAL ECG COMPARED TO ECG 03/13/2022 17:33:03 NO SIGNIFICANT CHANGES Electronically Signed On 05-22-2022 6:25:15 SEISMIC PROSPECTING OBSERVER HELPER by Davion Baldwin D.O.
[2022-05-21 19:21] LABS: Basophils Percent Auto 0.3 % (0.2-1.2); Eosinophils Percent Auto 0.2 % (0-4.4); Hematocrit 40.1 % (37.0-47.0); Hemoglobin 12.7 g/dL (12.0-15.0); Immature Granulocyte Absolute 0.02 K/mm3 (0.00-0.031); Immature Granulocyte Percent A 0.2 % (0-0.5); Lymphocytes Absolute Auto 2.21 K/mm3 (0.9-3.2); Lymphocytes Percent Auto 25.7 % (18.3-44.2); Mean Corpuscular HGB Conc 31.7 g/dl (32-36); Mean Corpuscular Hemoglobin 26.6 pg (26-34); Mean Corpuscular Volume 84.1 fl (80-100); Mean Platelet Volume 11.7 fl (7.4-10.4); Monocytes Absolute Auto 0.6 K/mm3 (0.1-0.6); Monocytes Percent Auto 6.5 % (2.6-8.5); Neutrophils Absolute Auto 5.8 K/mm3 (1.3-6.7); Neutrophils Percent Auto 67.1 % (45.5-73.1); Platelet Count Result 182 k/mm3 (150-375); Red Blood Count 4.77 M/mm3 (4.2-5.4); Red Cell Distribution Width 13.9 % (11.5-14.5); White Blood Count 8.6 K/mm3 (4.5-10.0)
[2022-05-21 19:31] LABS: Alanine Aminotransferase 20 U/L (6-35); Albumin Level 4.3 g/dL (3.5-5.1); Alkaline Phosphatase 97 U/L (38-126); Anion Gap 6 mmol/L (8-16); Aspartate Amino Transferase 27 U/L (14-36); Bilirubin,Total 0.5 mg/dL (0.2-1.3); Blood Urea Nitrogen 26 mg/dL (7-17); Calcium 10.2 mg/dL (8.4-10.2); Carbon Dioxide 29 mmol/L (22-30); Chloride 104 mmol/L (98-107); Creatine Kinase 73 U/L (30-135); Estimated CRCL calculation 40 ml/min; Estimated Glomerular Filt Rate > 60; Glucose 102 mg/dL (65-110); Potassium 4.1 mmol/L (3.4-5.0); Sodium 139 mmol/L (137-145)
[2022-05-21 19:43] LABS: Troponin I < 0.012 ng/mL (0.000-0.034)
[2022-05-21] MEDS: SODIUM CHLORIDE 0.9% IV 1,000 ML 999 ML IV CONT (19:55)
[2022-05-21 20:36] LABS: Appearance Urine Cloudy (Clear); Bacteria Urine 1+ /hpf; Bilirubin Urine Negative (Negative); Blood Urine 3+ (Negative); Color Urine Yellow (Yellow); Glucose Urine UA Negative (Negative); Ketones Urine Trace mg/dL (Negative); Leukocyte Esterase Ur 3+ LEU/UL (Negative); Need Manual Microscopic Reviewed; Nitrate Urine Negative (Negative); Non Pathogenic Casts 0-2; Protein Urine 2+ mg/dL (Negative); RBC Urine 21-50 /hpf (0-2); Specific Grav Ur 1.011 (1.001-1.035); Squamous Epithelial Cell Urine None seen /hpf (Few); Urobilinogen Urine 0.2 mg/dL (<2.0); WBC Urine >100 /hpf; pH Urine 7.5 (5.0-9.0)
[2022-05-21 20:38] LABS: Add Urine Microscopic? YES
--- NOTE | 2022-05-21 21:54 | PC.NURSE ---
Attempted to ambulate patient with walker. Attempt unsuccessful. Patient able to stand with walker but unable to take any steps. She was very unsteady and c/o significant pain to left hip and groin upon standing.
--- NOTE | 2022-05-21 22:30 | PC.NURSE ---
Patient off unit to CT.
--- NOTE | 2022-05-21 23:08 | PC.NURSE ---
Patient report given to ABNDAR Yu. All questions answered and care of patient transferred.
--- NOTE | 2022-05-21 23:31 | PM.IMHP ---
H&P: HPI History of Present Illness Date/Time: 05/21/22 23:31 Chief Complaint: 86 years old female with past medical history of stroke and dementia hypertension alert oriented x2 at baseline patient was found on the floor for unknown period of time but not more than 2 hours according to the family patient fell from ground level does not remember how the fall happened of status any loss of consciousness patient was not able to ambulate due to leg pain and hip pain CT scan of the pelvis was negative for acute fracture skeletal survey for was negative for fracture CT scan abdomen and pelvis showed lung nodule recommended follow-up in 3 months Review of Systems Review of Systems: History is limited due to baseline dementia [facility] Past Medical History Medical History Dementia History of CVA (cerebrovascular accident) Per CT scanChronic lacunar infarct of left basal ganglia Cerebral atherosclerosis and chronic small vessel ischemic changes of the cerebral white matter 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 She lives home alone. She is listed as . She tells me she has 1 daughter. 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 She is listed as a full code and her daughter is the durable power patent prosecution attorney for healthcare. Code status full code Smoking packs per day: 1 Smoking cigarettes per day: 20.0 Years smoked: 20 Smoking pack-years: 20.00 Smoking status: Former smoker Alcohol intake: never Substance use: never Substance use type: does not use Gender identity (if verbalized by the patient): Female Spiritual care concerns: No Meds Home Medications and Allergies Home Medications Medication Instructions Recorded Confirmed Type metoprolol succinate 25 mg 25 mg PO DAILY 05/17/20 09/15/21 History tablet,extended release 24 hr pravastatin 40 mg tablet 40 mg PO HS 05/17/20 09/15/21 History donepezil 5 mg tablet 1 tablet PO HS 09/15/21 09/15/21 History amlodipine 2.5 mg tablet (Norvasc) 2.5 mg PO DAILY #30 tabs 09/19/21 Rx cefdinir 300 mg capsule 300 mg PO Q12H #8 caps 09/19/21 Rx nitrofurantoin 100 mg PO Q12H 5 days #10 caps 03/13/22 Rx monohydrate/macrocrystals 100 mg capsule (Macrobid) Allergies Allergy/AdvReac Type Severity Reaction Status Date / Time Quinolones Allergy Mild unsure Verified 12/30/20 17:51 ciprofloxacin Allergy Unknown unsure Verified 12/30/20 17:51 penicillin G Allergy Unknown unsure Verified 12/30/20 17:51 Penicillins Allergy Unknown unsure Verified 12/30/20 17:51 tetracycline Allergy Unknown unsure Verified 12/30/20 17:51 Vital Signs Vital Signs - 24 hr 05/21/22 17:57 05/21/22 20:06 05/21/22 20:10 Temperature 97.9 F Pulse Rate 83 80 80 Respiratory Rate 22 H Blood Pressure 187/99 H Pulse Oximetry 100 100 Oxygen Delivery Room Air 05/21/22 20:11 05/21/22 20:15 05/21/22 20:17 Temperature Pulse Rate 79 80 72 Respiratory Rate 27 H 34 H 21 H Blood Pressure Pulse Oximetry 100 100 Oxygen Delivery 05/21/22 20:30 05/21/22 20:32 05/21/22 20:45 Temperature Pulse Rate 69 65 78 Respiratory Rate 17 16 Blood Pressure 1
[2022-05-22] VITALS (11 sets, daily range): BP systolic 148–177; BP diastolic 55–112; PULSE 54–114; RESP 15–18; TEMP 36.3–36.8; O2SAT 93–99; BMI 24.2
--- NOTE | 2022-05-22 02:38 | ADMGEN ---
This patient, Janis Whittington, was admitted to Medical Room 258-01. Patient/family oriented to hospital policies and general routines including ID bracelet, bed and alarms, visiting hours, pain management, procedures, bathroom and other care routines, personal items, smoking policy, room service/diet, and visiting hours. Information on how to activate the Rapid Response Team has been discussed. Patient/Family are encouraged to report perceived risks to care and to ask questions if they do not understand what they are told or what they should do.
[2022-05-22] MEDS: SODIUM CHLORIDE 0.9% IV 1,000 ML 100 ML IV CONT (02:55)
[2022-05-22 05:13] LABS: Basophils Percent Auto 0.4 % (0.2-1.2); Eosinophils Absolute Auto 0.1 K/mm3 (0-0.3); Eosinophils Percent Auto 0.9 % (0-4.4); Hematocrit 35.6 % (37.0-47.0); Hemoglobin 11.3 g/dL (12.0-15.0); Immature Granulocyte Absolute 0.03 K/mm3 (0.00-0.031); Immature Granulocyte Percent A 0.4 % (0-0.5); Lymphocytes Percent Auto 37.7 % (18.3-44.2); Mean Corpuscular HGB Conc 31.7 g/dl (32-36); Mean Corpuscular Hemoglobin 26.2 pg (26-34); Mean Corpuscular Volume 82.6 fl (80-100); Mean Platelet Volume 11.2 fl (7.4-10.4); Monocytes Absolute Auto 0.5 K/mm3 (0.1-0.6); Monocytes Percent Auto 7.3 % (2.6-8.5); Neutrophils Percent Auto 53.3 % (45.5-73.1); Platelet Count Result 153 k/mm3 (150-375); Red Blood Count 4.31 M/mm3 (4.2-5.4); Red Cell Distribution Width 13.7 % (11.5-14.5); White Blood Count 7.4 K/mm3 (4.5-10.0)
[2022-05-22 05:26] LABS: Alanine Aminotransferase 18 U/L (6-35); Albumin Level 3.4 g/dL (3.5-5.1); Alkaline Phosphatase 77 U/L (38-126); Anion Gap 3 mmol/L (8-16); Aspartate Amino Transferase 22 U/L (14-36); Bilirubin,Total 0.5 mg/dL (0.2-1.3); Blood Urea Nitrogen 19 mg/dL (7-17); Calcium 9.3 mg/dL (8.4-10.2); Carbon Dioxide 28 mmol/L (22-30); Chloride 106 mmol/L (98-107); Estimated CRCL calculation 42 ml/min; Estimated Glomerular Filt Rate > 60; Glucose 90 mg/dL (65-110); Potassium 3.6 mmol/L (3.4-5.0); Sodium 137 mmol/L (137-145)
[2022-05-22 05:32] LABS: Troponin I 0.017 ng/mL (0.000-0.034)
--- NOTE | 2022-05-22 07:56 | PM.IMPN ---
Progress Note: A&P Assessment and Plan (1) Fall: Code(s): W19.XXXA - Unspecified fall, initial encounter Status: Acute Assessment and Plan: Pt presented to ED due to ground level fall. Patient was on the ground for unknown period of time but less than 2 hours. Patient complains of pelvic pain CT scan was negative Likely mechanical fall complicated by dehydration and orthostatic hypotension Imaging of chest, femur, knee, and head no acute findings. Echo With EF at 60-65%, grade 1 diastolic dysfunction, mild aortic valve sclerosis, mild mitral valve regurg and mild tricuspid valve regurg. CK mildly elevated and unconcerning. Troponin normal x2 Check orthostatics Telemonitor Family would like placement PT OT eval was requested (2) Acute UTI: Code(s): N39.0 - Urinary tract infection, site not specified Status: Acute Assessment and Plan: Patient found to have abnormal UA with 3+ blood, 3+ LE, 21-50 RBC, and >100 WBC Patient received Rocephin in the ED and tolerated well. Will continue Rocephin Urine culture pending and tailor therapy to culture results. (3) Generalized weakness: Code(s): R53.1 - Weakness Status: Acute Assessment and Plan: PT OT evaluation most likely related to dehydration and UTI give IV fluid IV antibiotics (4) Hypertension: Qualifiers: Hypertension type: unspecified Qualified Code(s): I10 - Essential (primary) hypertension Code(s): I10 - Essential (primary) hypertension Status: Chronic Assessment and Plan: Resume home medication Subjective Date/time seen: 05/22/22 07:56 Interval history: Patient lying in bed resting comfortably. Patient with no complaints at this time. Patient has history of frequent falls although she did not have a fracture. The plan is to work with therapy and be placed and SNF. Review of Systems Review of Systems: All systems reviewed & are unremarkable except as noted in HPI and below Exam Narrative: GENERAL: Comfortable, no acute distress HENMT: moist mucous membranes EYES: EOM intact b/l NECK: no lymphadenopathy RESPIRATORY: clear to auscultation CARDIO: RRR GI: soft, nontender, bowel sounds present SKIN: no rashes EXTREMITIES: no edema, redness or tenderness Objective Data Vital Signs Vital Signs: Vital Signs - 24 hr 05/21/22 17:57 05/21/22 20:06 05/21/22 20:10 Temperature 97.9 F Pulse Rate 83 80 80 Respiratory Rate 22 H Blood Pressure 187/99 H Pulse Oximetry 100 100 Oxygen Delivery Room Air 05/21/22 20:11 05/21/22 20:15 05/21/22 20:17 Temperature Pulse Rate 79 80 72 Respiratory Rate 27 H 34 H 21 H Blood Pressure Pulse Oximetry 100 100 Oxygen Delivery 05/21/22 20:30 05/21/22 20:32 05/21/22 20:45 Temperature Pulse Rate 69 65 78 Respiratory Rate 17 16 Blood Pressure 143/57 H Pulse Oximetry 97 96 99 Oxygen Delivery 05/21/22 20:47 05/21/22 20:48 05/21/22 21:00 Temperature Pulse Rate 77 78 67 Respiratory Rate 20 22 H 22 H Blood Pressure 152/66 H Pulse Oximetry 96 99 99 Oxygen Delivery 05/21/22 21:01 05/21/22 21:15 05/21/22 21:16 Temperature Pulse Rate 69 68 77 Respiratory Rate 25 H 17 25 H Blood Pressure 146/67 H 148/58 H Pulse Oximetry 98 97 97 Oxygen Delivery 05/21/22 21:30 05/21/22 21:31 05/21/22 21:47 Temperature Pulse Rate 74 82 70 Respiratory Rate 33 H 29 H 20 Blood Pressure 161/90 H Pulse Oximetry 97 97 99 Oxygen Delivery 05/21/22 22:00 05/21/22 22:15 05/21/22 22:38 Temperature Pulse Rate 66 66 68 Respiratory Rate 19 16 Blood Pressure Pulse Oximetry 98 98 Oxygen Delivery 05/21/22 22:39 05/21/22 22:45 05/21/22 22:46 Temperature Pulse Rate 69 76 66 Respiratory Rate 18 19 18 Blood Pressure 143/54 H Pulse Oximetry 98 97 98 Oxygen Delivery 05/21/22 23:00 05/21/22 23:01 05/22/22 01:37 Temperature
[2022-05-22] MEDS: FAMOTIDINE 20 MG TABLET PO ×2 (08:36→20:54)
[2022-05-22] MEDS: ENOXAPARIN 40 MG/0.4 ML SYRINGE SUB-Q (08:37)
[2022-05-22 12:26] LABS: Creatine Kinase 148 U/L (30-135)
--- NOTE | 2022-05-22 19:21 | ECG_ITS ---
Measurements Intervals [place] Rate: 80 P: 62 TN: 162 QRS: -14 QRSD: 77 T: -34 QT: 365 QTc: 422 Interpretive Statements SINUS RHYTHM FREQUENT ATRIAL PREMATURE COMPLEXES NONSPECIFIC ST & T-WAVE ABNORMALITY- ANTEROLAT/INF LEADS BASELINE ARTIFACT- II, III, AVR, AVL, AVF, V2-V6 ABNORMAL ECG COMPARED TO ECG 05/21/2022 20:04:45 NO SIGNIFICANT CHANGES Electronically Signed On 05-23-2022 6:42:12 [employer] by Davion Baldwin D.O.
--- NOTE | 2022-05-22 23:28 | ECHO_ITS ---
Patient Info Name: Janis Whittington Age: 86 years : 1935 Gender: Female Ht: 65 in Wt: 149 lbs BSA: 1.77 m2 HR: 114 bpm BP: 152 / 62 mmHg Heart Rhythm: Sinus Rhythm Technical Quality: Fair Exam Date: 05/22/2022 10:22 AM Exam Location: [facility] Patient Status: Inpatient Admit Date: 05/21/2022 Staff Ordering Physician: Fabricio Olson M.A., MD Sap Portal Developer: Brenna Taylor RDCS Attending Provider: Fabricio Olson M.A., MD Referring Physician: Familia CORONEL; Exam Type: CA echo doppler color flow Study Info Indications R55 - Syncope and collapse Complete two-dimensional, color flow and Doppler transthoracic echocardiogram is performed. Summary 1. Complete two-dimensional, color flow and Doppler transthoracic echocardiogram is performed. 2. Left ventricular chamber dimension is normal. 3. Left ventricular systolic function is normal, estimated at 60-65%. 4. The left ventricular diastolic function is grade I diastolic dysfunction. 5. E/e' 12 is mildly elevated. 6. Left atrial chamber dimension is moderately enlarged. 7. There is mild aortic valve sclerosis. 8. The mitral valve has mildly calcified annulus. 9. There is mild mitral valve regurgitation. 10. There is mild tricuspid valve regurgitation. 11. No pulmonary hypertension, estimated pulmonary arterial systolic pressure is 30 mmHg. 12. There is trace pulmonic regurgitation. Left Ventricle E/e' 12 is mildly elevated. Left ventricular chamber dimension is normal. Left ventricular systolic function is normal, estimated at 60-65%. The left ventricular diastolic function is grade I diastolic dysfunction. Right Ventricle Right ventricular systolic function is normal and with normal TAPSE 2.0 cm. Right ventricular chamber dimension is normal. Left Atria Left atrial chamber dimension is moderately enlarged. Right Atria Right atrial chamber dimension is normal. Aortic Valve The aortic valve is trileaflet. There is mild aortic valve sclerosis. There is no aortic valve stenosis. There is no aortic valve regurgitation. Pulmonic Valve There is trace pulmonic regurgitation. Mitral Valve The mitral valve has mildly calcified annulus. There is no mitral valve stenosis. There is mild mitral valve regurgitation. Tricuspid Valve There is mild tricuspid valve regurgitation. No pulmonary hypertension, estimated pulmonary arterial systolic pressure is 30 mmHg. Pericardium/Pleural There is no pericardial effusion. Inferior Vena Cava Normal inferior vena cava with >50% collapse upon inspiration consistent with normal right atrial pressure, 5 mmHg. Aorta The aortic root size at the sinus of Valsalva is normal. Left Ventricular Outflow Tract Name Value Normal LVOT 2D LVOT Diameter 2.0 cm LVOT Doppler LVOT Peak Gradient 3 mmHg LVOT Mean Gradient 1 mmHg LVOT VTI 18 cm LVOT VTI/AV VTI Ratio 0.6 LVOT Stroke Volume 59 ml LVOT CO
[2022-05-23] VITALS (9 sets, daily range): BP systolic 133–163; BP diastolic 62–90; PULSE 56–98; RESP 16–20; TEMP 36.6; O2SAT 98–99
[2022-05-23 05:02] LABS: Basophils Absolute Auto 0.1 K/mm3 (0.0-0.1); Basophils Percent Auto 0.8 % (0.2-1.2); Eosinophils Absolute Auto 0.1 K/mm3 (0-0.3); Eosinophils Percent Auto 1.1 % (0-4.4); Hematocrit 35.7 % (37.0-47.0); Hemoglobin 11.5 g/dL (12.0-15.0); Immature Granulocyte Absolute 0.01 K/mm3 (0.00-0.031); Immature Granulocyte Percent A 0.2 % (0-0.5); Lymphocytes Percent Auto 41.7 % (18.3-44.2); Mean Corpuscular HGB Conc 32.2 g/dl (32-36); Mean Corpuscular Volume 80.8 fl (80-100); Mean Platelet Volume 10.9 fl (7.4-10.4); Monocytes Absolute Auto 0.5 K/mm3 (0.1-0.6); Monocytes Percent Auto 7.5 % (2.6-8.5); Neutrophils Percent Auto 48.7 % (45.5-73.1); Platelet Count Result 153 k/mm3 (150-375); Red Blood Count 4.42 M/mm3 (4.2-5.4); Red Cell Distribution Width 13.6 % (11.5-14.5); White Blood Count 6.2 K/mm3 (4.5-10.0)
[2022-05-23 05:18] LABS: Alanine Aminotransferase 17 U/L (6-35); Albumin Level 3.4 g/dL (3.5-5.1); Alkaline Phosphatase 75 U/L (38-126); Anion Gap 4 mmol/L (8-16); Aspartate Amino Transferase 18 U/L (14-36); Bilirubin,Total 0.5 mg/dL (0.2-1.3); Blood Urea Nitrogen 18 mg/dL (7-17); Calcium 9.8 mg/dL (8.4-10.2); Carbon Dioxide 26 mmol/L (22-30); Chloride 105 mmol/L (98-107); Estimated CRCL calculation 47 ml/min; Estimated Glomerular Filt Rate > 60; Glucose 96 mg/dL (65-110); Potassium 3.6 mmol/L (3.4-5.0); Sodium 135 mmol/L (137-145)
[2022-05-23] MEDS: FAMOTIDINE 20 MG TABLET PO ×2 (08:31→20:33)
[2022-05-23] MEDS: ENOXAPARIN 40 MG/0.4 ML SYRINGE SUB-Q (08:31)
--- NOTE | 2022-05-23 13:31 | PM.IMPN ---
Progress Note: A&P Assessment and Plan (1) Fall: Code(s): W19.XXXA - Unspecified fall, initial encounter Status: Acute Assessment and Plan: Pt presented to ED due to ground level fall. Patient was on the ground for unknown period of time but less than 2 hours. Patient complains of pelvic pain CT scan was negative Likely mechanical fall complicated by dehydration and orthostatic hypotension Imaging of chest, femur, knee, and head no acute findings. Echo With EF at 60-65%, grade 1 diastolic dysfunction, mild aortic valve sclerosis, mild mitral valve regurg and mild tricuspid valve regurg. CK mildly elevated and unconcerning. Troponin normal x2 Orthostatics negative Telemonitor Family would like placement PT OT eval was requested Patient awaiting placement into SNF. (2) Acute UTI: Code(s): N39.0 - Urinary tract infection, site not specified Status: Acute Assessment and Plan: Patient found to have abnormal UA with 3+ blood, 3+ LE, 21-50 RBC, and >100 WBC Patient received Rocephin in the ED and tolerated well. Will continue Rocephin Urine culture positive for Klebs aerogenes (Enterobacter) sensitive to Rocephin. (3) Generalized weakness: Code(s): R53.1 - Weakness Status: Acute Assessment and Plan: PT OT evaluation most likely related to dehydration and UTI give IV fluid IV antibiotics (4) Hypertension: Qualifiers: Hypertension type: unspecified Qualified Code(s): I10 - Essential (primary) hypertension Code(s): I10 - Essential (primary) hypertension Status: Chronic Assessment and Plan: Resume home medication Subjective Date/time seen: 05/23/22 13:31 Interval history: Patient with no complaints today. Granddaughter at bedside. Awaiting placement. Review of Systems Review of Systems: All systems reviewed & are unremarkable except as noted in HPI and below Exam Narrative: GENERAL: Comfortable, no acute distress HENMT: moist mucous membranes EYES: EOM intact b/l NECK: no lymphadenopathy RESPIRATORY: clear to auscultation CARDIO: RRR GI: soft, nontender, bowel sounds present SKIN: no rashes EXTREMITIES: no edema, redness or tenderness Objective Data Vital Signs Vital Signs: Vital Signs - 24 hr 05/22/22 14:01 05/22/22 14:00 05/22/22 18:40 Temperature 97.6 F Pulse Rate 110 H 57 L Respiratory Rate 18 Blood Pressure 148/64 H 170/57 H Pulse Oximetry 93 Oxygen Delivery Room Air 05/22/22 18:52 05/22/22 18:43 05/22/22 18:46 Temperature Pulse Rate 86 54 L 59 L Respiratory Rate Blood Pressure 174/62 H 150/75 H 177/112 H Pulse Oximetry Oxygen Delivery 05/22/22 21:04 05/22/22 20:00 05/23/22 00:00 Temperature 98.3 F Pulse Rate 65 76 74 Respiratory Rate 16 Blood Pressure 177/75 H Pulse Oximetry 96 Oxygen Delivery 05/23/22 04:00 05/23/22 04:41 05/23/22 08:30 Temperature 98 F Pulse Rate 76 56 L 71 Respiratory Rate 16 Blood Pressure 161/79 H Pulse Oximetry 98 Oxygen Delivery 05/23/22 08:30 Temperature Pulse Rate Respiratory Rate Blood Pressure Pulse Oximetry Oxygen Delivery Room Air Intake/Output Intake/Output: Intake & Output 05/20/22 05/21/22 05/22/22 05/23/22 23:59 23:59 23:59 23:59 Intake Total 1150 1340 1040 Output Total 300 Balance 1150 1040 1040 Meds/Results Medications: Active Medications Generic Name Dose Route Start Last Admin Trade Name Freq PRN Reason Stop Dose Admin Acetaminophen 650 mg 05/21/22 23:20 Acetaminophen 325 Mg Tablet PO Q4H PRN Mild Pain (1-3) or Fever Hydrocodone Bitart/Acetaminophen 1 tab 05/21/22 23:28 Hydrocodone/Acetaminophen (*Crx) 5-325 Mg Tablet PO Q6H PRN Pain Rated 4-6 Enoxaparin Sodium 40 mg 05/22/22 09:00 05/23/22 08:31 Enoxaparin 40 Mg/0.4 Ml Syringe SUB-Q 40 mg DAILY HENNA Administration
--- NOTE | 2022-05-23 16:09 | PM.CNCAR ---
Assessment and Plan Assessment and plan (1) Fall: Code(s): W19.XXXA - Unspecified fall, initial encounter Status: Acute Assessment and Plan: Probably due to orthostatic hypotension as she had dizziness while standing. Could also be due to bradycardia but I have not seen significant bradycardia on telemetry. She is on Metoprolol at home was not continued here. She did receive some IVF. Recommend patient keep well hydrated drinking at least 3-4 glasses of water a day. Agree with stopping Metoprolol for now in case due to bradycardia. (2) Hypertension: Qualifiers: Hypertension type: unspecified Qualified Code(s): I10 - Essential (primary) hypertension Code(s): I10 - Essential (primary) hypertension Status: Chronic Assessment and Plan: Stable. If BP increases off Metoprolol, recommend increasing Amlodipine dose. Monitor HR and BP. If stable hemodynamics may d/c home and f/u with me in 1-2 weeks. History of Present Illness History of Present Illness Consult date/time: 05/23/22 16:09 Reason For Visit: UTI, weakness Narrative: Reason for consult: Bradycardia 86 yr old woman presented to ER after a fall. She has a history of dementia, hypertension. She is alert and oriented x0. She could not give me her name, thought she was at [place], and did not know the year. She did tell me she fell while standing by her refrigerator due to dizziness. States she did not injure herself. She fell one other time in Fall. She walks with a walker around her house. She couldn't tell me how much water she drinks. Denies chest pain, sob. Review of Systems Review of Systems: All systems reviewed & are unremarkable except as noted in HPI and below Constitutional: Constitutional: Reports as per HPI, Denies chills and Denies fever(s) Cardiovascular: Cardiovascular: Reports as per HPI, Denies chest pain, Denies irregular heart rhythm and Denies leg edema Respiratory: Respiratory: Reports as per HPI and Denies dyspnea Gastrointestinal: Gastrointestinal: Reports as per HPI and Denies abdominal pain Genitourinary: Genitourinary: Reports as per HPI Musculoskeletal: Musculoskeletal: Reports as per HPI and Reports myalgias Neurologic: Reports dizziness and Denies syncope [facility] Past Medical History Medical History Dementia History of CVA (cerebrovascular accident) Per CT scanChronic lacunar infarct of left basal ganglia Cerebral atherosclerosis and chronic small vessel ischemic changes of the cerebral white matter 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 She lives home alone. She is listed as . She tells me she has 1 daughter. 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 She is listed as a full code and her daughter is the durable power member of the legislative assembly for healthcare. Code status full code Smoking packs per day: 1 Smoking cigarettes per day: 20.0 Years smoked: 20 Smoking pack-years: 20.00 Smoking status: Former smoker Alcohol intake: never Substance use: never Substance use type: does not use Gender identity (if verbalized by the patient): Female Spiritual care c
[2022-05-24] VITALS (11 sets, daily range): BP systolic 112–136; BP diastolic 52–72; PULSE 73–97; RESP 14–17; TEMP 36.6–37.1; O2SAT 96–99
[2022-05-24 05:05] LABS: Basophils Absolute Auto 0.1 K/mm3 (0.0-0.1); Basophils Percent Auto 0.7 % (0.2-1.2); Eosinophils Absolute Auto 0.1 K/mm3 (0-0.3); Hematocrit 35.8 % (37.0-47.0); Hemoglobin 11.6 g/dL (12.0-15.0); Immature Granulocyte Absolute 0.02 K/mm3 (0.00-0.031); Immature Granulocyte Percent A 0.3 % (0-0.5); Lymphocytes Absolute Auto 2.38 K/mm3 (0.9-3.2); Mean Corpuscular HGB Conc 32.4 g/dl (32-36); Mean Corpuscular Hemoglobin 26.8 pg (26-34); Mean Corpuscular Volume 82.7 fl (80-100); Monocytes Absolute Auto 0.5 K/mm3 (0.1-0.6); Monocytes Percent Auto 7.1 % (2.6-8.5); Neutrophils Absolute Auto 3.8 K/mm3 (1.3-6.7); Neutrophils Percent Auto 55.9 % (45.5-73.1); Platelet Count Result 155 k/mm3 (150-375); Red Blood Count 4.33 M/mm3 (4.2-5.4); Red Cell Distribution Width 13.8 % (11.5-14.5); White Blood Count 6.8 K/mm3 (4.5-10.0)
[2022-05-24 05:19] LABS: Alanine Aminotransferase 17 U/L (6-35); Albumin Level 3.4 g/dL (3.5-5.1); Alkaline Phosphatase 72 U/L (38-126); Anion Gap 2 mmol/L (8-16); Aspartate Amino Transferase 17 U/L (14-36); Bilirubin,Total 0.5 mg/dL (0.2-1.3); Blood Urea Nitrogen 22 mg/dL (7-17); Calcium 9.6 mg/dL (8.4-10.2); Carbon Dioxide 25 mmol/L (22-30); Chloride 106 mmol/L (98-107); Estimated CRCL calculation 42 ml/min; Estimated Glomerular Filt Rate > 60; Glucose 96 mg/dL (65-110); Potassium 3.5 mmol/L (3.4-5.0); Sodium 133 mmol/L (137-145)
--- NOTE | 2022-05-24 08:06 | PM.PNCARD ---
Progress Note: A&P Assessment and Plan (1) Fall: Code(s): W19.XXXA - Unspecified fall, initial encounter Status: Acute Assessment and Plan: Probably due to orthostatic hypotension as she had dizziness while standing. Could also be due to bradycardia but I have not seen significant bradycardia on telemetry. She is on Metoprolol at home was not continued here. She did receive some IVF. Recommend patient keep well hydrated drinking at least 3-4 glasses of water a day. Agree with stopping Metoprolol for now in case due to bradycardia. Hemodynamics are stable. (2) Hypertension: Qualifiers: Hypertension type: unspecified Qualified Code(s): I10 - Essential (primary) hypertension Code(s): I10 - Essential (primary) hypertension Status: Chronic Assessment and Plan: Stable hemodynamics, july d/c home and f/u with me in 1-2 weeks. Subjective Date/time seen: 05/24/22 08:06 Interval history: Patient is alert and oriented x 3 today. Denies chest pain, sob, or dizziness. Exam Const: General: cooperative, healthy appearing, comfortable and alert Resp: Auscultation: clear to auscultation bilaterally, no crackles, no rales, no rhonchi and no wheezes Cardio: Rate: regular rate Rhythm: regular rhythm Heart sounds: no murmurs Peripheral pulses: dorsalis pedis present Extrem: Right lower extremity: no edema Left lower extremity: no edema Objective Data Vital Signs Vital Signs: Vital Signs - 24 hr 05/23/22 08:30 05/23/22 08:30 05/23/22 14:05 Temperature 97.8 F Pulse Rate 71 60 Respiratory Rate 16 Blood Pressure 133/62 Pulse Oximetry 99 Oxygen Delivery Room Air 05/23/22 12:00 05/23/22 16:00 05/23/22 20:18 Temperature 97.8 F Pulse Rate 68 92 98 Respiratory Rate 20 Blood Pressure 163/90 H Pulse Oximetry 98 Oxygen Delivery 05/23/22 20:00 05/24/22 00:00 05/24/22 04:00 Temperature Pulse Rate 89 73 73 Respiratory Rate Blood Pressure Pulse Oximetry Oxygen Delivery 05/24/22 05:31 Temperature 98.2 F Pulse Rate 75 Respiratory Rate 16 Blood Pressure 136/72 Pulse Oximetry 96 Oxygen Delivery Intake/Output Intake/Output: Intake & Output 03/0205/22/22 05/23/22 05/24/22 23:59 23:59 23:59 23:59 Intake Total 1150 1340 1460 50 Output Total 300 Balance 1150 1040 1460 50 Meds/Results Medications: Active Medications Generic Name Dose Route Start Last Admin Trade Name Freq PRN Reason Stop Dose Admin Acetaminophen 650 mg 05/21/22 23:20 Acetaminophen 325 Mg Tablet PO Q4H PRN Mild Pain (1-3) or Fever Hydrocodone Bitart/Acetaminophen 1 tab 05/21/22 23:28 Hydrocodone/Acetaminophen (*Crx) 5-325 Mg Tablet PO Q6H PRN Pain Rated 4-6 Amlodipine Besylate 2.5 mg 05/24/22 09:00 Amlodipine Besylate 2.5 Mg Tablet PO QAM HENNA Enoxaparin Sodium 40 mg 05/22/22 09:00 05/23/22 08:31 Enoxaparin 40 Mg/0.4 Ml Syringe SUB-Q 40 mg DAILY HENNA Administration Famotidine 20 mg 05/22/22 09:00 05/23/22 20:33 Famotidine 20 Mg Tablet PO 20 mg Q12HR HENNA Administration Ceftriaxone Sodium 1 gm in 50 mls @ 100 mls/hr 05/22/22 21:00 05/23/22 21:03 Rocephin 1 Gm/Ns 50 Ml IVPB Infused HS HENNA Infusion Melatonin 3 mg 05/21/22 23:28 Melatonin 3 Mg Tablet PO HS PRN Insomnia Morphine Sulfate 2 mg 05/21/22 23:28 Morphine Sulfate (*Crx) 2 Mg/Ml Inj IV PUSH Q4H PRN For pain 7-10 Ondansetron HCl 4 mg 05/21/22 23:28 Ondansetron Inj 4 Mg/2 Ml Vial IV PUSH Q6H PRN Nausea And Vomiting Polyethylene Glycol 17 gm 05/21/22 23:28 Polyethylene Glycol 3350 17 Gm Powd.Pack PO Q8HR PRN Constipation Radiology Results: ITS Impressions Head CT 05/21/22 19:35 IMPRESSION: 1. No acute intracranial abnormality. 2. Age related findings. Knee X-Ray 05/21/22 19:46 IMPRESSION: 1. No acute osseous abnormality.
[2022-05-24] MEDS: FAMOTIDINE 20 MG TABLET PO ×2 (09:00→20:42)
[2022-05-24] MEDS: amLODIPine BESYLATE 2.5 MG TABLET PO (09:00)
[2022-05-24] MEDS: ENOXAPARIN 40 MG/0.4 ML SYRINGE SUB-Q (09:01)
--- NOTE | 2022-05-24 13:22 | PM.IMPN ---
Progress Note: A&P Assessment and Plan (1) Fall: Code(s): W19.XXXA - Unspecified fall, initial encounter Status: Acute Assessment and Plan: Pt presented to ED due to ground level fall. Patient was on the ground for unknown period of time but less than 2 hours. Patient complains of pelvic pain CT scan was negative Likely mechanical fall complicated by dehydration and orthostatic hypotension Imaging of chest, femur, knee, and head no acute findings. Echo With EF at 60-65%, grade 1 diastolic dysfunction, mild aortic valve sclerosis, mild mitral valve regurg and mild tricuspid valve regurg. CK mildly elevated and unconcerning. Troponin normal x2 Orthostatics negative Telemonitor Family would like placement PT OT eval was requested Patient awaiting placement into SNF. (2) Acute UTI: Code(s): N39.0 - Urinary tract infection, site not specified Status: Acute Assessment and Plan: Patient found to have abnormal UA with 3+ blood, 3+ LE, 21-50 RBC, and >100 WBC Patient received Rocephin in the ED and tolerated well. Will continue Rocephin Urine culture positive for Klebs aerogenes (Enterobacter) sensitive to Rocephin. (3) Generalized weakness: Code(s): R53.1 - Weakness Status: Acute Assessment and Plan: PT OT evaluation most likely related to dehydration and UTI give IV fluid IV antibiotics (4) Hypertension: Qualifiers: Hypertension type: unspecified Qualified Code(s): I10 - Essential (primary) hypertension Code(s): I10 - Essential (primary) hypertension Status: Chronic Assessment and Plan: Resume home medication Subjective Date/time seen: 05/24/22 13:22 Interval history: Patient resting in bed and is pleasant today. She has no new complaints at this time. She denies CP, SOB, N/V/D. Review of Systems Review of Systems: All systems reviewed & are unremarkable except as noted in HPI and below Exam Narrative: GENERAL: Comfortable, no acute distress HENMT: moist mucous membranes EYES: EOM intact b/l NECK: no lymphadenopathy RESPIRATORY: clear to auscultation CARDIO: RRR GI: soft, nontender, bowel sounds present SKIN: no rashes EXTREMITIES: no edema, redness or tenderness Objective Data Vital Signs Vital Signs: Vital Signs - 24 hr 05/23/22 14:05 05/23/22 16:00 05/23/22 20:18 Temperature 97.8 F 97.8 F Pulse Rate 60 92 98 Respiratory Rate 16 20 Blood Pressure 133/62 163/90 H Pulse Oximetry 99 98 Oxygen Delivery 05/23/22 20:00 05/24/22 00:00 05/24/22 04:00 Temperature Pulse Rate 89 73 73 Respiratory Rate Blood Pressure Pulse Oximetry Oxygen Delivery 05/24/22 05:31 05/24/22 08:59 05/24/22 09:46 Temperature 98.2 F Pulse Rate 75 86 Respiratory Rate 16 Blood Pressure 136/72 112/52 L Pulse Oximetry 96 96 Oxygen Delivery Room Air 05/24/22 08:55 05/24/22 08:55 05/24/22 12:00 Temperature Pulse Rate 90 80 Respiratory Rate Blood Pressure Pulse Oximetry Oxygen Delivery Room Air Intake/Output Intake/Output: Intake & Output 05/21/22 05/22/22 05/23/22 05/24/22 23:59 23:59 23:59 23:59 Intake Total 1150 1340 1460 410 Output Total 300 Balance 1150 1040 1460 410 Meds/Results Medications: Active Medications Generic Name Dose Route Start Last Admin Trade Name Freq PRN Reason Stop Dose Admin Acetaminophen 650 mg 05/21/22 23:20 Acetaminophen 325 Mg Tablet PO Q4H PRN Mild Pain (1-3) or Fever Hydrocodone Bitart/Acetaminophen 1 tab 05/21/22 23:28 Hydrocodone/Acetaminophen (*Crx) 5-325 Mg Tablet PO Q6H PRN Pain Rated 4-6 Amlodipine Besylate 2.5 mg 05/24/22 09:00 05/24/22 09:00 Amlodipine Besylate 2.5 Mg Tablet PO 2.5 mg QAM HENNA Administration Enoxaparin Sodium 40 mg 05/22/22 09:00 05/24/22 09:01 Enoxaparin 40 Mg/0.4 Ml Syringe SUB-Q 40 mg NOEL
[2022-05-24] MEDS: ACETAMINOPHEN 325 MG TABLET 650 MG PO (14:31)
[2022-05-25 05:39] VITALS: BP 148/51; PULSE 87; RESP 17; TEMP 36.5; O2SAT 96
[2022-05-25 06:21] LABS: Basophils Percent Auto 0.7 % (0.2-1.2); Eosinophils Absolute Auto 0.1 K/mm3 (0-0.3); Eosinophils Percent Auto 0.9 % (0-4.4); Hematocrit 34.6 % (37.0-47.0); Hemoglobin 11.1 g/dL (12.0-15.0); Immature Granulocyte Absolute 0.01 K/mm3 (0.00-0.031); Immature Granulocyte Percent A 0.2 % (0-0.5); Lymphocytes Absolute Auto 2.27 K/mm3 (0.9-3.2); Lymphocytes Percent Auto 39.1 % (18.3-44.2); Mean Corpuscular HGB Conc 32.1 g/dl (32-36); Mean Corpuscular Hemoglobin 26.8 pg (26-34); Mean Corpuscular Volume 83.6 fl (80-100); Mean Platelet Volume 11.2 fl (7.4-10.4); Monocytes Absolute Auto 0.5 K/mm3 (0.1-0.6); Monocytes Percent Auto 8.6 % (2.6-8.5); Neutrophils Absolute Auto 2.9 K/mm3 (1.3-6.7); Neutrophils Percent Auto 50.5 % (45.5-73.1); Platelet Count Result 148 k/mm3 (150-375); Red Blood Count 4.14 M/mm3 (4.2-5.4); Red Cell Distribution Width 14.1 % (11.5-14.5); White Blood Count 5.8 K/mm3 (4.5-10.0)
[2022-05-25 06:36] LABS: Alanine Aminotransferase 17 U/L (6-35); Albumin Level 3.3 g/dL (3.5-5.1); Alkaline Phosphatase 65 U/L (38-126); Anion Gap 4 mmol/L (8-16); Aspartate Amino Transferase 20 U/L (14-36); Bilirubin,Total 0.4 mg/dL (0.2-1.3); Blood Urea Nitrogen 29 mg/dL (7-17); Calcium 9.5 mg/dL (8.4-10.2); Carbon Dioxide 25 mmol/L (22-30); Chloride 107 mmol/L (98-107); Estimated CRCL calculation 42 ml/min; Estimated Glomerular Filt Rate > 60; Glucose 92 mg/dL (65-110); Potassium 3.7 mmol/L (3.4-5.0); Sodium 136 mmol/L (137-145)
[2022-05-25] MEDS: ENOXAPARIN 40 MG/0.4 ML SYRINGE SUB-Q (11:31)
[2022-05-25] MEDS: FAMOTIDINE 20 MG TABLET PO ×2 (11:31→20:09)
[2022-05-25 11:32] VITALS: BP 165/80; PULSE 88; RESP 14; O2SAT 97
[2022-05-25] MEDS: amLODIPine BESYLATE 2.5 MG TABLET PO (11:33)
[2022-05-25] MEDS: polyethylene glycoL 3350 17 GM POWD.PACK PO (11:49)
--- NOTE | 2022-05-25 12:37 | PM.DS ---
DS: Admitting Diagnosis Discharge Date 05/25/22 Admitting Diagnosis UTI DS: Discharge Diagnosis Discharge Diagnosis (1) Fall: Code(s): W19.XXXA - Unspecified fall, initial encounter Status: Acute Assessment and Plan: Pt presented to ED due to ground level fall. Patient was on the ground for unknown period of time but less than 2 hours. Patient complains of pelvic pain CT scan was negative Likely mechanical fall complicated by dehydration and orthostatic hypotension Imaging of chest, femur, knee, and head no acute findings. Echo With EF at 60-65%, grade 1 diastolic dysfunction, mild aortic valve sclerosis, mild mitral valve regurg and mild tricuspid valve regurg. CK mildly elevated and unconcerning. Troponin normal x2 Orthostatics negative Telemonitor Family would like placement PT OT eval was requested Patient awaiting placement into SNF. (2) Acute UTI: Code(s): N39.0 - Urinary tract infection, site not specified Status: Acute Assessment and Plan: Patient found to have abnormal UA with 3+ blood, 3+ LE, 21-50 RBC, and >100 WBC Patient received Rocephin in the ED and tolerated well. Will continue Rocephin Urine culture positive for Klebs aerogenes (Enterobacter) sensitive to Rocephin. (3) Generalized weakness: Code(s): R53.1 - Weakness Status: Acute Assessment and Plan: PT OT evaluation most likely related to dehydration and UTI give IV fluid IV antibiotics (4) Hypertension: Qualifiers: Hypertension type: unspecified Qualified Code(s): I10 - Essential (primary) hypertension Code(s): I10 - Essential (primary) hypertension Status: Chronic Assessment and Plan: Resume home medication DS: Summary Hospital Course Reason for hospitalization: fall, UTI Hospital Course: This is an 86-year-old female with past medical history of hypertension and hyperlipidemia. Patient was found on the floor of her home and brought to the ED on 05/21/2022. It is unknown how long the patient was on the floor but it was stated that he could not have been more than 2 hours. Patient did have some left leg pain post fall. CT scan of the pelvis/hip negative for acute fracture. CT abdomen/pelvis revealed lung nodule and a follow-up CT in 3 months is recommended. chest x-ray no acute cardiopulmonary process. Labs were unremarkable. UA positive for infection. Patient was started on Rocephin. Patient's fall was likely mechanical and complicated by dehydration and possible orthostatic hypotension. Echocardiogram revealed patient had an EF of 60 65% with grade 1 diastolic dysfunction, mild aortic sclerosis, and mild mitral valve and tricuspid valve regurgitation. CK mildly elevated but unconcerning. Patient's troponins negative x2. orthostatics in the hospital negative. Patient was monitored on telemetry and Cardiology consulted on the patient. Cardiology discontinued patient's metoprolol due to it being a little possible causes for patient's weakness and fall. Urine culture positive for Klebsiella aerogenes that was sensitive to Rocephin. Blood cultures no growth to date. Patient's family is interested in rehab and patient did have to stay in hospital for a couple extra days pending placement. Patient will be discharged into SNF and well complete p.o. antibiotic therapy as an outpatient. Time Spent with Patient Time attestation: Total time spent providing and/or coordinating discharge services: Exam Narrative: GENERAL: Comfortable, no acute distress HENMT: moist mucous membranes EYES: EOM intact b/l NECK: no lymphadenopathy RESPIRATORY: clear to auscultation CARDIO: RRR GI: soft, nontender, bowel sounds present SKIN: no rashes EXTREMITIES: no edema, redness or tenderness DS: Data Data Completed and Pending Labs on day of discharge: Labs from last 24 hours 05/25/22 05/25/22 05:50 05:5
[2022-05-25 15:06] VITALS: BP 141/51; PULSE 80; RESP 16; TEMP 36.5; O2SAT 100
[2022-05-25 16:02] LABS: EDCOVIDSCREEN Negative (Negative)
--- NOTE | 2022-05-25 18:09 | PCCCNOTE ---
Phone call received from Serena RN that she tried to call report to [facility] but they weren't sure the patient could come because of the insurance authorization. Spoke with daytime career technology teacher, Maris she states that refax'd clinical at 2:30 and had requested expediated review for SNF. She recommends calling [facility]. Called to [facility] spoke with Britany, asked for update regarding pending auth [id number], she states that they case is still pending, and it has not been assigned yet to a specific nurse it is still in the review pool. Called to Tiffanie at [facility], she confirms that she has not received approval so she can not accept tonight. Called back to Serena and provided update that patient cannot dc tonight.
[2022-05-25] MEDS: cefTRIAXone 1 GM VIAL IM (21:21)
[2022-05-25 21:34] VITALS: BP 136/83; PULSE 93; RESP 18; TEMP 36.7; O2SAT 100
[2022-05-26 05:27] VITALS: BP 153/81; PULSE 61; RESP 17; TEMP 37.1; O2SAT 99
--- NOTE | 2022-05-26 06:53 | PM.IMPN ---
Subjective Date/time seen: 05/26/22 06:53 Objective Data Vital Signs Vital Signs: Vital Signs - 24 hr 05/25/22 11:32 05/25/22 15:06 05/25/22 11:00 Temperature 97.7 F Pulse Rate 88 80 Respiratory Rate 14 16 Blood Pressure 165/80 H 141/51 H Pulse Oximetry 97 100 Oxygen Delivery Room Air 05/25/22 20:30 05/25/22 21:34 05/26/22 05:27 Temperature 98.1 F 98.7 F Pulse Rate 93 61 Respiratory Rate 18 17 Blood Pressure 136/83 153/81 H Pulse Oximetry 100 99 Oxygen Delivery Room Air Intake/Output Intake/Output: Intake & Output 05/23/22 05/24/22 05/25/22 05/26/22 23:59 23:59 23:59 23:59 Intake Total 1460 1024 1410 450 Balance 1460 1024 1410 450 Meds/Results Medications: Active Medications Generic Name Dose Route Start Last Admin Trade Name Freq PRN Reason Stop Dose Admin Acetaminophen 650 mg 05/21/22 23:20 05/24/22 14:31 Acetaminophen 325 Mg Tablet PO 650 mg Q4H PRN Administration Mild Pain (1-3) or Fever Hydrocodone Bitart/Acetaminophen 1 tab 05/21/22 23:28 Hydrocodone/Acetaminophen (*Crx) 5-325 Mg Tablet PO Q6H PRN Pain Rated 4-6 Amlodipine Besylate 2.5 mg 05/24/22 09:00 05/25/22 11:33 Amlodipine Besylate 2.5 Mg Tablet PO 2.5 mg QAM HENNA Administration Enoxaparin Sodium 40 mg 05/22/22 09:00 05/25/22 11:31 Enoxaparin 40 Mg/0.4 Ml Syringe SUB-Q 40 mg DAILY HENNA Administration Famotidine 20 mg 05/22/22 09:00 05/25/22 20:09 Famotidine 20 Mg Tablet PO 20 mg Q12HR HENNA Administration Ceftriaxone Sodium 1 gm in 50 mls @ 100 mls/hr 05/22/22 21:00 05/25/22 20:47 Rocephin 1 Gm/Ns 50 Ml IVPB Not Given HS HENNA Melatonin 3 mg 05/21/22 23:28 Melatonin 3 Mg Tablet PO HS PRN Insomnia Morphine Sulfate 2 mg 05/21/22 23:28 Morphine Sulfate (*Crx) 2 Mg/Ml Inj IV PUSH Q4H PRN For pain 7-10 Ondansetron HCl 4 mg 05/21/22 23:28 Ondansetron Inj 4 Mg/2 Ml Vial IV PUSH Q6H PRN Nausea And Vomiting Polyethylene Glycol 17 gm 05/21/22 23:28 05/25/22 11:49 Polyethylene Glycol 3350 17 Gm Powd.Pack PO 17 gm Q8HR PRN Administration Constipation Radiology Results: ITS Impressions Head CT 05/21/22 19:35 IMPRESSION: 1. No acute intracranial abnormality. 2. Age related findings. Knee X-Ray 05/21/22 19:46 IMPRESSION: 1. No acute osseous abnormality. Femur X-Ray 05/21/22 19:50 IMPRESSION: 1. No acute osseous abnormality. Hip/Pelvis X-Ray 05/21/22 19:52 IMPRESSION: 1. Osteoarthritis without acute osseous abnormality. Chest X-Ray 05/21/22 19:53 IMPRESSION: 1. No acute cardiopulmonary abnormality. Abdomen/Pelvis CT 05/21/22 22:43 IMPRESSION: 1. No CT correlate for the patient's symptoms. 2. 10 mm nodule of the left lower lobe. Follow-up low-dose CT in three months is recommended. Labs Labs: Laboratory Results - last 24 hr 05/25/22 15:40 SARS-CoV-2 IgG/IgM Ag?Rapid Negative
[2022-05-26] MEDS: amLODIPine BESYLATE 2.5 MG TABLET PO (08:20)
[2022-05-26] MEDS: FAMOTIDINE 20 MG TABLET PO (08:20)
[2022-05-26] MEDS: ENOXAPARIN 40 MG/0.4 ML SYRINGE SUB-Q (08:20)
[2022-05-26] MEDS: ACETAMINOPHEN 325 MG TABLET 650 MG PO (13:01)
--- NOTE | 2022-05-26 13:02 | PM.DS ---
DS: Admitting Diagnosis Discharge Date 05/26/22 Admitting Diagnosis UTI DS: Discharge Diagnosis Discharge Diagnosis (1) Fall: Code(s): W19.XXXA - Unspecified fall, initial encounter Status: Acute Assessment and Plan: Pt presented to ED due to ground level fall. Patient was on the ground for unknown period of time but less than 2 hours. Patient complains of pelvic pain CT scan was negative Likely mechanical fall complicated by dehydration and orthostatic hypotension Imaging of chest, femur, knee, and head no acute findings. Echo With EF at 60-65%, grade 1 diastolic dysfunction, mild aortic valve sclerosis, mild mitral valve regurg and mild tricuspid valve regurg. CK mildly elevated and unconcerning. Troponin normal x2 Orthostatics negative Telemonitor Family would like placement PT OT eval was requested Patient awaiting placement into SNF. (2) Acute UTI: Code(s): N39.0 - Urinary tract infection, site not specified Status: Acute Assessment and Plan: Patient found to have abnormal UA with 3+ blood, 3+ LE, 21-50 RBC, and >100 WBC Patient received Rocephin in the ED and tolerated well. Will continue Rocephin Urine culture positive for Klebs aerogenes (Enterobacter) sensitive to Rocephin. (3) Generalized weakness: Code(s): R53.1 - Weakness Status: Acute Assessment and Plan: PT OT evaluation most likely related to dehydration and UTI give IV fluid IV antibiotics (4) Hypertension: Qualifiers: Hypertension type: unspecified Qualified Code(s): I10 - Essential (primary) hypertension Code(s): I10 - Essential (primary) hypertension Status: Chronic Assessment and Plan: Resume home medication DS: Summary Hospital Course Reason for hospitalization: UTI, fall Hospital Course: This is an 86-year-old female with past medical history of hypertension and hyperlipidemia.? Patient was found on the floor of her home and brought to the ED on 05/21/2022.? It is unknown how long the patient was on the floor but it was stated that he could not have been more than 2 hours.? Patient did have some left leg pain post fall.? CT scan of the pelvis/hip negative for acute fracture.? CT abdomen/pelvis revealed lung nodule and a follow-up CT in 3 months is recommended. chest x-ray no acute cardiopulmonary process. ? Labs were unremarkable.? UA positive for infection.? Patient was started on Rocephin.? ? Patient's fall was likely mechanical and complicated by dehydration and possible orthostatic hypotension.? Echocardiogram revealed patient had an EF of 60 65% with grade 1 diastolic dysfunction, mild aortic sclerosis, and mild mitral valve and tricuspid valve regurgitation.? CK mildly elevated but unconcerning.? Patient's troponins negative x2. orthostatics in the hospital negative.? Patient was monitored on telemetry and Cardiology consulted on the patient.? Cardiology discontinued patient's metoprolol due to it being a little possible causes for patient's weakness and fall. Urine culture positive for Klebsiella aerogenes that was sensitive to Rocephin.? Blood cultures no growth to date. ? Patient's family is interested in rehab and patient did have to stay in hospital for a couple extra days pending placement.? Patient will be discharged into SNF and well complete p.o. antibiotic therapy as an outpatient. Time Spent with Patient Time attestation: Total time spent providing and/or coordinating discharge services: Exam Narrative: GENERAL: Comfortable, no acute distress HENMT: moist mucous membranes EYES: EOM intact b/l NECK: no lymphadenopathy RESPIRATORY: clear to auscultation CARDIO: RRR GI: soft, nontender, bowel sounds present SKIN: no rashes EXTREMITIES: no edema, redness or tenderness DS: Data Data Completed and Pending Labs on day of discharge: Labs from last 24 hours 05/25/22 15:40 SARS-CoV-2 IgG/Ig
--- NOTE | 2022-05-26 13:20 | PCOTNOTE ---
Attempted to see Patient this afternoon for OT treatment session. Patient's family member present, verbalized she is being discharged, they are waiting on a ambulance and she will get therapy services over there .
[2022-05-26 14:18] VITALS: BP 132/53; PULSE 81; RESP 18; TEMP 36.5; O2SAT 98
== END 2022-05-26 16:26 | DRG 690 ==
LOC: ANHED 23:30 → ANH2MED 05-22 01:11
PROVIDERS: Admitting Provider Internal Medicine; Emergency Provider Emergency Medicine; PCP Anesthesiology; Visit Provider Internal Medicine Critical Care Medicine
DX: N39.0 Urinary tract infection, site not specified (principal); B96.89 Other specified bacterial agents as the cause of diseases classified elsewhere; Z20.822 Contact with and (suspected) exposure to COVID-19; I95.1 Orthostatic hypotension; E86.0 Dehydration; E78.5 Hyperlipidemia, unspecified; I10 Essential (primary) hypertension; F03.90 Unspecified dementia, unspecified severity, without behavioral disturbance, psychotic disturbance, mood disturbance, and anxiety; W19.XXXA Unspecified fall, initial encounter; Z86.73 Personal history of transient ischemic attack (TIA), and cerebral infarction without residual deficits; Z90.49 Acquired absence of other specified parts of digestive tract; Z90.710 Acquired absence of both cervix and uterus; Z87.891 Personal history of nicotine dependence
CPT/HCPCS: 36415; 51701; 70450; 71045; 73502; 73552; 73564; 74176; 80053; 81001; 82550; 84484; 85025; 87040; 87077; 87086; 87186; 87426; 93005; 93306; 96361; 96365; 96366; 96367; 96372; 97110; 97161; 97166; 97530; 99285; A9270; C9803; G0378; J0131; J0696; J1650; J7030

== ENCOUNTER 2022-07-13 20:00 | Observation (INO) | payer OTHER, SELFPAY ==
[2022-07-13] VITALS (9 sets, daily range): BP systolic 148–188; BP diastolic 61–81; PULSE 94–126; RESP 20–25; TEMP 36.7; O2SAT 94–95
--- NOTE | ~2022-07-13 | CT_ITS ---
EXAMINATION: CT cervical spine wo con DATE: 07/13/2022 21:16 INDICATION: fall TECHNIQUE: Computed tomography (CT) of the cervical spine was performed without intravenous contrast. Automated exposure control and iterative reconstruction technique were employed. The dose-length pro duct was 149.64 mGy-cm. COMPARISON: 12/30/2020. FINDINGS: Vertebral Body Alignment: Intact. . Craniocervical and atlantoaxial alignment: Moderate degenerative change. Alignment intact. Osseous structures/fracture: No evidence of a lytic or blastic process in the visualized spine. No e vidence of acute fracture. . Cervical soft tissues: The paraspinal soft tissues planes are maintained. Small bilateral mastoid eff usions. Irregular inflammatory/infectious focus in the left upper lung. Degenerative changes: Degenerative changes, without severe neural foraminal or central canal narrowin g. IMPRESSION: No acute fracture or traumatic malalignment in the cervical spine. Reviewed, dictated and finalized at location K.
--- NOTE | ~2022-07-13 | XR_ITS ---
EXAM: XR hip LT 2V w AP pelvis DATE: 07/13/2022 21:29 HISTORY: pain . COMPARISON: 06/08/2022. FINDINGS: Decreased mineralization. Lumbar degenerative disc disease. Mild right and moderate left h ip arthritis. No fracture or dislocation. Mild scattered vascular calcifications. IMPRESSION: No acute osseous finding in the pelvis or left hip. Reviewed, dictated and finalized at location K.
--- NOTE | ~2022-07-13 | XR_ITS ---
EXAMINATION: XR chest 1V Exam Date/Time: 07/13/2022 21:20 CDT HISTORY: confusion Comparison: 05/21/2022. RESULT: Lines, tubes, and devices: None. Lungs and pleura: Senescent change, otherwise clear. Cardiomediastinal silhouette: Stable. Other: No acute osseous or upper abdominal finding. IMPRESSION: No acute cardiopulmonary process. Reviewed, dictated and finalized at location K.
--- NOTE | ~2022-07-13 | CT_ITS ---
EXAMINATION: CT brain wo con DATE: 07/13/2022 21:13 INDICATION: altered mental status . TECHNIQUE: Computed tomography (CT) of the head was performed without intravenous contrast. The mA wa s adjusted according to patient size. Iterative reconstruction technique was employed. The dose-lengt h product was 681.00 mGy-cm. COMPARISON: 05/21/2022. FINDINGS: No acute intracranial hemorrhage or extra-axial fluid collection. No hydrocephalus, mass, or herniation. No acute ischemic infarct. Unremarkable dural venous sinus attenuation. No acute osseous abnormality. Bilateral maxillary retention cysts or polyps, bilateral small volume mastoid fluid, the remaining ae rated spaces are clear. Mild atrophy and chronic white matter change. Atherosclerotic intracranial calcification. Old bilater al basal ganglia and focal left inferior periventricular infarcts. IMPRESSION: No acute intracranial process. Reviewed, dictated and finalized at location K.
--- NOTE | ~2022-07-13 | US_ITS ---
EXAMINATION: US renal BI DATE: 07/15/2022 15:02 INDICATION: Hematuria TECHNIQUE: Multiple ultrasound grayscale images of the kidneys were obtained. COMPARISON: None. FINDINGS: The right kidney measures 10.3 x 5.2 x 3.7 cm. The kidney demonstrates normal echogenicity with no hy dronephrosis. No stones identified. The left kidney is not visualized. The region of the left kidney large obscured by extensive shadowing bowel gas. The bladder is normal. IMPRESSION: 1. Normal right kidney without hydronephrosis. The left kidney was unable to visualized due to large amount of shadowing bowel gas. Reviewed, dictated and finalized at location A. IMPRESSION: 1. Normal right kidney without hydronephrosis. The left kidney was unable to v isualized due to large amount of shadowing bowel gas.
--- NOTE | 2022-07-13 20:54 | ECG_ITS ---
Measurements Intervals [place] Rate: 108 P: 260 AL: 112 QRS: -18 QRSD: 79 T: 2 QT: 322 QTc: 433 Interpretive Statements SINUS TACHYCARDIA MODERATE VOLTAGE CRITERIA FOR LVH, CONSIDER NORMAL VARIANT [MEETS CRITERIA IN ONE OF: R(aVL), S(V1), R(V5), R(V5/V6)+S(V1)] NONSPECIFIC ST & T-WAVE ABNORMALITY ABNORMAL ECG Electronically Signed On 07-14-2022 14:37:38 CDT by Adonis Nuñez M.D.
--- NOTE | 2022-07-13 21:06 | PC.NURSE ---
Pt to imaging at this time.
--- NOTE | 2022-07-13 21:37 | ED.FALL ---
HPI - Fall General Chief Complaint: Fall Stated Complaint: AMS Time Seen by Provider: 07/13/22 20:40 Source: patient, family, EMS, RN notes reviewed and old records reviewed Mode of arrival: EMS Limitations: dementia History of Present Illness HPI Narrative: This is an 86 year old female who presents from home with daughter concerned for altered mental status. She states today patient fell this afternoon around 4 pm. She states patient lives with her but she works during the day. She saw patient was on the floor on the camera so she asked her son to help patient. She reports patient seems like she was fine after her fall, and she only had left elbow abrasion. She states once she got his this evening patient seemed off. She reports patient seems to need more assistance walking to kitchen . She also states patient did not eat much. She is concerned that patient had UTI. Patient knows her name and knows she is at hospital. She reports left upper leg pain and her daughter reports chronic left hip pain. Patient reports of generalized pain. She denies chest pain, sob, headache, neck pain. Related Data Home Medications Medication Instructions Recorded Confirmed pravastatin 40 mg tablet 40 mg PO HS 05/17/20 07/14/22 donepezil 5 mg tablet 1 tablet PO HS 09/15/21 07/14/22 Allergies Allergy/AdvReac Type Severity Reaction Status Date / Time Quinolones Allergy Mild unsure Verified 07/13/22 20:13 ciprofloxacin Allergy Unknown unsure Verified 07/13/22 20:13 penicillin G Allergy Unknown unsure Verified 07/13/22 20:13 Penicillins Allergy Unknown unsure Verified 07/13/22 20:13 tetracycline Allergy Unknown unsure Verified 07/13/22 20:13 Review of Systems Constitutional: Constitutional: Denies weakness Cardiovascular: Cardiovascular: Denies syncope, Denies rapid heart rate, Denies irregular heart rhythm, Denies leg edema and Denies dyspnea Respiratory: Respiratory: Denies chest congestion, Denies hemoptysis, Denies excessive phlegm production and Denies dyspnea Gastrointestinal: Gastrointestinal: Denies abdominal pain, Denies hematochezia, Denies diarrhea and Denies vomiting Genitourinary: Genitourinary: Denies hematuria and Denies dysuria Musculoskeletal: Musculoskeletal: Reports arthralgias, Denies joint swelling, Denies loss of height and Denies muscle weakness Neurologic: Denies syncope, Denies focal weakness and Denies weakness PMFSH Past Medical History Medical History (Updated 07/14/22 @ 11:26 by Holly Davila MD) Dementia History of CVA (cerebrovascular accident) Per CT scanChronic lacunar infarct of left basal ganglia Cerebral atherosclerosis and chronic small vessel ischemic changes of the cerebral white matter 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 She lives home alone. She is listed as . She tells me she has 1 daughter. 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 She is listed as a full code and her daughter is the durable power admitted attorneys for healthcare. Code status full code Smoking packs per day: 1 Smoking cigarettes per day: 20.0 Years smoked: 20 Smoking pack-years: 20.00 Smoking status: Former smoker Alcohol intake: never
[2022-07-13 21:40] LABS: Basophils Percent Auto 0.3 % (0.2-1.2); Hematocrit 38.9 % (37.0-47.0); Hemoglobin 12.5 g/dL (12.0-15.0); Immature Granulocyte Absolute 0.07 K/mm3 (0.00-0.031); Immature Granulocyte Percent A 0.6 % (0-0.5); Lymphocytes Absolute Auto 0.79 K/mm3 (0.9-3.2); Mean Corpuscular HGB Conc 32.1 g/dl (32-36); Mean Platelet Volume 11.2 fl (7.4-10.4); Monocytes Absolute Auto 0.6 K/mm3 (0.1-0.6); Monocytes Percent Auto 5.5 % (2.6-8.5); Neutrophils Absolute Auto 9.7 K/mm3 (1.3-6.7); Neutrophils Percent Auto 86.6 % (45.5-73.1); Platelet Count Result 184 k/mm3 (150-375); Red Blood Count 4.63 M/mm3 (4.2-5.4); Red Cell Distribution Width 14.2 % (11.5-14.5); White Blood Count 11.2 K/mm3 (4.5-10.0)
[2022-07-13 21:50] LABS: INR 1.2; Lactic Acid Reflex 1.1 mmol/L (0.7-2.0); Prothrombin Time 14.6 Seconds (11.1-14.7)
[2022-07-13 21:51] LABS: Partial Thromboplastin Time 30.5 SECONDS (22.3-36.8)
[2022-07-13 22:11] LABS: Alanine Aminotransferase 24 U/L (6-35); Albumin Level 4.3 g/dL (3.5-5.1); Alkaline Phosphatase 101 U/L (38-126); Anion Gap 5 mmol/L (8-16); Aspartate Amino Transferase 25 U/L (14-36); Bilirubin,Total 0.6 mg/dL (0.2-1.3); Blood Urea Nitrogen 30 mg/dL (7-17); Calcium 10.5 mg/dL (8.4-10.2); Carbon Dioxide 29 mmol/L (22-30); Chloride 104 mmol/L (98-107); Creatine Kinase 76 U/L (30-135); Estimated Glomerular Filt Rate > 60; Glucose 147 mg/dL (65-110); Lipase 100 U/L (23-300); Magnesium 1.6 mg/dL (1.6-2.3); Potassium 3.7 mmol/L (3.4-5.0); Sodium 138 mmol/L (137-145)
[2022-07-13 22:16] LABS: Influenza A QL RT-PCR Negative (Negative); Influenza B QL RT-PCR Negative (Negative); SARS-CoV-2 RNA PCR Negative (Negative)
[2022-07-13 22:17] LABS: Add Urine Microscopic? YES; Appearance Urine Cloudy (Clear); Bacteria Urine None Seen /hpf; Bilirubin Urine Negative (Negative); Blood Urine 3+ (Negative); Color Urine Yellow (Yellow); Glucose Urine UA Negative (Negative); Ketones Urine Negative (Negative); Leukocyte Esterase Ur Negative LEU/UL (Negative); Need Manual Microscopic Reviewed; Nitrate Urine Negative (Negative); Protein Urine 1+ mg/dL (Negative); RBC Urine 21-50 /hpf (0-2); Squamous Epithelial Cell Urine Moderate /hpf (Few); WBC Urine 0-5 /hpf
[2022-07-13 22:22] LABS: Troponin I < 0.012 ng/mL (0.000-0.034)
--- NOTE | 2022-07-13 23:53 | PM.IMHP ---
H&P: HPI History of Present Illness Date/Time: 07/13/22 23:53 Chief Complaint: Fall Narrative: 86-year-old female with past medical history significant for Alzheimer's disease, recently discharged from rehabilitation center she went back home most of the history has been obtained from daughter who is at bedside as patient is unable to provide any history she repeats after questions, there are cameras around the house and the daughter was able to see when she would fell to the ground who immediately called her son who came over and helped her back up, patient also was noted not to be her usual has been more confused has not been feeding well and seemed more weak than usual daughter was concern with urinary tract infection. Preliminary workup was significant for: EXAMINATION:? XR chest 1V Exam Date/Time:? 07/13/2022 21:20 CDT HISTORY: confusion ? Comparison:? 05/21/2022. RESULT: Lines, tubes, and devices:? None. Lungs and pleura:? Senescent change, otherwise clear. Cardiomediastinal silhouette:? Stable. Other:? No acute osseous or upper abdominal finding. ? IMPRESSION: No acute cardiopulmonary process. EXAMINATION: CT brain wo con DATE: 07/13/2022 21:13 INDICATION: altered mental status . TECHNIQUE: Computed tomography (CT) of the head was performed without intravenous contrast. The mA was adjusted according to patient size. Iterative reconstruction technique was employed. The dose-length product was 681.00 mGy-cm. COMPARISON: 05/21/2022. FINDINGS: No acute intracranial hemorrhage or extra-axial fluid collection. No hydrocephalus, mass, or herniation. No acute ischemic infarct. Unremarkable dural venous sinus attenuation. No acute osseous abnormality. Bilateral maxillary retention cysts or polyps, bilateral small volume mastoid fluid, the remaining aerated spaces are clear. Mild atrophy and chronic white matter change. Atherosclerotic intracranial calcification. Old bilateral basal ganglia and focal left inferior periventricular infarcts. IMPRESSION:? No acute intracranial process. Patient has been admitted for further evaluation management and treatment. Review of Systems Review of Systems: ROS unobtainable: Yes unobtainable due to mental status (Dementia, confusion) [facility] Past Medical History Medical History (Updated 07/14/22 @ 02:56 by Daniel Roberts MD) Dementia History of CVA (cerebrovascular accident) Per CT scanChronic lacunar infarct of left basal ganglia Cerebral atherosclerosis and chronic small vessel ischemic changes of the cerebral white matter 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 She lives home alone. She is listed as . She tells me she has 1 daughter. 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 She is listed as a full code and her daughter is the durable power basketball coach for healthcare. Code status full code Smoking packs per day: 1 Smoking cigarettes per day: 20.0 Years smoked: 20 Smoking pack-years: 20.00 Smoking status: Former smoker Alcohol intake: never Substance use: never Substance use type: does not use Gender identity (if verbalized by the patient): Female Spiritual care concerns: No
[2022-07-13] MEDS: SODIUM CHLORIDE 0.9% IV 1,000 ML 999 ML IV CONT (23:55)
[2022-07-14] VITALS (11 sets, daily range): BP systolic 152–173; BP diastolic 57–78; PULSE 76–97; RESP 14–25; TEMP 36.2–36.7; O2SAT 94–99
--- NOTE | 2022-07-14 03:24 | ADMGEN ---
This patient, Janis Whittington, was admitted to [facility] Surg Room 322-02 at 0240. Patient/family oriented to hospital policies and general routines including ID bracelet, bed and alarms, visiting hours, pain management, procedures, bathroom and other care routines, personal items, smoking policy, room service/diet, and visiting hours. Information on how to activate the Rapid Response Team has been discussed. Patient/Family are encouraged to report perceived risks to care and to ask questions if they do not understand what they are told or what they should do.
[2022-07-14] MEDS: SODIUM CHLORIDE 0.9% IV 1,000 ML 125 ML IV CONT (04:08)
[2022-07-14 06:44] LABS: Basophils Percent Auto 0.4 % (0.2-1.2); Eosinophils Percent Auto 0.1 % (0-4.4); Hematocrit 32.7 % (37.0-47.0); Hemoglobin 10.6 g/dL (12.0-15.0); Immature Granulocyte Absolute 0.02 K/mm3 (0.00-0.031); Immature Granulocyte Percent A 0.3 % (0-0.5); Immature Platelet Fraction Pct 4.1 % (0.9-11.2); Lymphocytes Absolute Auto 1.84 K/mm3 (0.9-3.2); Lymphocytes Percent Auto 24.1 % (18.3-44.2); Mean Corpuscular HGB Conc 32.4 g/dl (32-36); Mean Corpuscular Hemoglobin 26.3 pg (26-34); Mean Corpuscular Volume 81.1 fl (80-100); Mean Platelet Volume 10.6 fl (7.4-10.4); Monocytes Absolute Auto 0.6 K/mm3 (0.1-0.6); Monocytes Percent Auto 8.2 % (2.6-8.5); Neutrophils Absolute Auto 5.1 K/mm3 (1.3-6.7); Neutrophils Percent Auto 66.9 % (45.5-73.1); Platelet Count Result 134 k/mm3 (150-375); Red Blood Count 4.03 M/mm3 (4.2-5.4); White Blood Count 7.6 K/mm3 (4.5-10.0)
[2022-07-14 06:59] LABS: Alanine Aminotransferase 19 U/L (6-35); Albumin Level 3.6 g/dL (3.5-5.1); Alkaline Phosphatase 87 U/L (38-126); Anion Gap 6 mmol/L (8-16); Aspartate Amino Transferase 23 U/L (14-36); Bilirubin,Total 0.7 mg/dL (0.2-1.3); Blood Urea Nitrogen 21 mg/dL (7-17); Calcium 9.7 mg/dL (8.4-10.2); Carbon Dioxide 26 mmol/L (22-30); Chloride 107 mmol/L (98-107); Estimated Glomerular Filt Rate > 60; Glucose 102 mg/dL (65-110); Potassium 3.7 mmol/L (3.4-5.0); Sodium 139 mmol/L (137-145)
--- NOTE | 2022-07-14 15:55 | PM.IMPN ---
Progress Note: A&P Assessment and Plan (1) Fall: Code(s): W19.XXXA - Unspecified fall, initial encounter Status: Acute Assessment and Plan: Admit to regular medical floor Fall precautions PT OT consult (2) Generalized weakness: Code(s): R53.1 - Weakness Status: Acute Assessment and Plan: PT OT consult (3) Dementia: Code(s): F03.90 - Unspecified dementia, unspecified severity, without behavioral disturbance, psychotic disturbance, mood disturbance, and anxiety Status: Acute Assessment and Plan: Supportive care Continue donepezil Subjective Date/time seen: 07/14/22 15:55 Interval history: Chart reviewed. Patient presented with altered mental status and fall patient was on floor. She feels okay currently. Does not verbalize much. Review of Systems Review of Systems: ROS unobtainable: Yes unobtainable due to mental status (Dementia, confusion) Exam Narrative: Const:?? Alert and conversant oriented to place and person. Not in acute distress HENMT:?? Normocephalic atraumatic Eyes:?? Conjunctivae: conjunctivae normal? Pupils: Equal, round and reactive pupils present? EOM: EOMs intact bilaterally Chest:?? Chest palpation & inspection: normal inspection of the chest Resp:?? Effort & Inspection: normal respiratory effort? Auscultation: clear to auscultation bilaterally Cardio:?? Rate: regular rate? Rhythm: regular rhythm GI:?? Soft nondistended nontender Back/Spine/Pelvis:?? Back: no CVA tenderness Neuro:?? Generalized weakness, moves all extremities and CN's II-XI intact bilaterally? Speech: normal speech Psych:?? Mental Status: mental status grossly normal? Affect: normal affect? Attitude: cooperative Objective Data Vital Signs Vital Signs: Vital Signs - 24 hr 07/13/22 19:57 07/13/22 21:39 07/13/22 21:57 Temperature 98.0 F Pulse Rate 108 H 101 H 96 Respiratory Rate 22 H 25 H Blood Pressure 188/74 H 170/80 H Pulse Oximetry 95 95 Oxygen Delivery Room Air 07/13/22 22:35 07/13/22 22:52 07/13/22 22:53 Temperature Pulse Rate 98 94 110 H Respiratory Rate 22 H Blood Pressure 165/78 H 156/61 H 165/81 H Pulse Oximetry 95 Oxygen Delivery 07/13/22 22:56 07/13/22 23:12 07/13/22 23:55 Temperature Pulse Rate 126 H 95 94 Respiratory Rate 20 Blood Pressure 148/78 H 161/75 H Pulse Oximetry 94 Oxygen Delivery 07/14/22 01:28 07/14/22 02:39 07/14/22 05:47 Temperature 98.0 F Pulse Rate 85 93 88 Respiratory Rate 15 25 H 14 Blood Pressure 160/78 H 173/57 H Pulse Oximetry 94 96 Oxygen Delivery 07/14/22 04:00 07/14/22 09:43 07/14/22 10:31 Temperature Pulse Rate 87 Respiratory Rate Blood Pressure Pulse Oximetry 98 Oxygen Delivery Room Air Room Air 07/14/22 08:00 07/14/22 08:00 Temperature Pulse Rate 88 Respiratory Rate Blood Pressure Pulse Oximetry Oxygen Delivery Room Air Intake/Output Intake/Output: Intake & Output 07/11/22 07/12/22 07/13/22 07/14/22 23:59 23:59 23:59 23:59 Intake Total 1860 Balance 1860 Meds/Results Medications: Active Medications Generic Name Dose Route Start Last Admin Trade Name Freq PRN Reason Stop Dose Admin Sodium Chloride 1,000 mls @ 125 mls/hr 07/13/22 23:55 07/14/22 09:13 Normal Saline Iv IV CONT Not Given .Q8H HENNA Ondansetron HCl 4 mg 07/13/22 23:55 Ondansetron Inj 4 Mg/2 Ml Vial IV PUSH Q4H PRN Nausea Radiology Results: ITS Impressions Head CT 07/13/22 21:18 IMPRESSION: No acute intracranial process. Cervical Spine CT 07/13/22 21:30 IMPRESSION: No acute fracture or traumatic malalignment in the cervical spine. Chest X-Ray 07/13/22 21:38 IMPRESSION: No acute cardiopulmonary process. Hip/Pelvis X-Ray 07/13/22 21:39 IMPRESSION: No acute osseous finding in the pelvis or left hip. Labs Labs: Laboratory Results - last 24 hr
[2022-07-14] MEDS: SODIUM CHLORIDE 0.9% IV 1,000 ML 75 ML IV CONT (17:37)
[2022-07-14] MEDS: DONEPEZIL HCL 5 MG TABLET PO (20:31)
[2022-07-14] MEDS: PRAVASTATIN SODIUM 20 MG TABLET 40 MG PO (20:31)
[2022-07-15 04:00] VITALS: PULSE 94
[2022-07-15 06:00] VITALS: BP 132/70; PULSE 93; RESP 18; TEMP 36.4; O2SAT 96
[2022-07-15 06:16] LABS: Basophils Percent Auto 0.5 % (0.2-1.2); Eosinophils Percent Auto 0.5 % (0-4.4); Hematocrit 34.6 % (37.0-47.0); Hemoglobin 11.2 g/dL (12.0-15.0); Immature Granulocyte Absolute 0.02 K/mm3 (0.00-0.031); Immature Granulocyte Percent A 0.3 % (0-0.5); Immature Platelet Fraction Pct 4.8 % (0.9-11.2); Lymphocytes Percent Auto 24.9 % (18.3-44.2); Mean Corpuscular HGB Conc 32.4 g/dl (32-36); Mean Corpuscular Hemoglobin 26.9 pg (26-34); Mean Corpuscular Volume 83.2 fl (80-100); Mean Platelet Volume 10.8 fl (7.4-10.4); Monocytes Absolute Auto 0.6 K/mm3 (0.1-0.6); Monocytes Percent Auto 7.3 % (2.6-8.5); Neutrophils Absolute Auto 5.1 K/mm3 (1.3-6.7); Neutrophils Percent Auto 66.5 % (45.5-73.1); Platelet Count Result 141 k/mm3 (150-375); Red Blood Count 4.16 M/mm3 (4.2-5.4); Red Cell Distribution Width 13.8 % (11.5-14.5); White Blood Count 7.6 K/mm3 (4.5-10.0)
[2022-07-15 06:26] LABS: Alanine Aminotransferase 18 U/L (6-35); Albumin Level 3.4 g/dL (3.5-5.1); Alkaline Phosphatase 79 U/L (38-126); Anion Gap 4 mmol/L (8-16); Aspartate Amino Transferase 22 U/L (14-36); Bilirubin,Total 0.8 mg/dL (0.2-1.3); Blood Urea Nitrogen 13 mg/dL (7-17); Calcium 8.9 mg/dL (8.4-10.2); Carbon Dioxide 25 mmol/L (22-30); Chloride 105 mmol/L (98-107); Estimated Glomerular Filt Rate > 60; Glucose 98 mg/dL (65-110); Magnesium 1.4 mg/dL (1.6-2.3); Potassium 3.3 mmol/L (3.4-5.0); Sodium 134 mmol/L (137-145)
[2022-07-15] MEDS: POTASSIUM CHLORIDE 20 MEQ TABLET 40 MEQ PO (09:24)
[2022-07-15] MEDS: ENOXAPARIN 40 MG/0.4 ML SYRINGE SUB-Q (09:25)
[2022-07-15] MEDS: MAGNESIUM SULF 2 GM/WATER 50ML 2 GM/50 ML BAG IVPB (09:25)
--- NOTE | 2022-07-15 11:02 | WPDPN ---
Progress Note: A&P Assessment and Plan (1) Fall: Code(s): W19.XXXA - Unspecified fall, initial encounter Status: Acute Assessment and Plan: Admitted to regular medical floor. Telemetry showing no significant dysrhythmias. Etiology unclear. Urinalysis shows hematuria and proteinuria which is chronic but this did not trigger urine culture. White count was slightly elevated but normalized on repeat. Not on antibiotics. Currently on IV fluids but patient eating reasonably well (50-100% of meals). Continue fall precautions. Soft telemetry. Will stop IV fluids. Continue PT and OT. Discharge at any time (2) Generalized weakness: Code(s): R53.1 - Weakness Status: Acute Assessment and Plan: Continue PT and OT. Will check B12, folate TSH. (3) Dementia: Code(s): F03.90 - Unspecified dementia, unspecified severity, without behavioral disturbance, psychotic disturbance, mood disturbance, and anxiety Status: Acute Assessment and Plan: Stable. Continue Aricept. Plan Proteinuria with hematuria - This finding has been present since at least 2020. CT of the abdomen pelvis in May 2022 showed wall thickening of the urinary bladder with surrounding inflammatory changes the kidneys are unremarkable. She was being treated for UTI at that time. Albumin is essentially normal. Renal function is normal Will checks urine studies. Check renal US Subjective Date/time seen: 07/15/22 11:02 Interval history: 86yo female with dementia here for a fall. Patient denies any chest pain or abdominal pain. She is alert but confused so history is unreliable. Review of Systems Review of Systems: ROS unobtainable: Yes unobtainable due to mental status Exam Narrative: AF 97.6 132/70 93 18 96% ra Gen - NARD Chest - lungs clear anteriorly. nml RR CV - irregularly irregular. Tele showing sinus arrhythmias and PACs Abd - Soft, NT/ND, Positive BS Ext - No pedal edema Neuro - Alert and oriented x2 (location and Matt name). Normal contract assistant Psych - Nml mood but flat affect Skin - Warm and dry Objective Data Vital Signs Vital Signs: Vital Signs - 24 hr 07/14/22 12:00 07/14/22 16:00 07/14/22 14:00 Temperature 97.3 F L Pulse Rate 88 76 84 Respiratory Rate 18 Blood Pressure 152/73 H Pulse Oximetry 99 Oxygen Delivery 07/14/22 20:00 07/14/22 20:00 07/14/22 22:00 Temperature 97.1 F L Pulse Rate 97 76 96 Respiratory Rate 18 16 Blood Pressure 159/67 H Pulse Oximetry 99 95 Oxygen Delivery Room Air 07/15/22 06:00 07/15/22 04:00 07/15/22 08:00 Temperature 97.6 F Pulse Rate 93 94 Respiratory Rate 18 Blood Pressure 132/70 Pulse Oximetry 96 Oxygen Delivery Room Air Intake/Output Intake/Output: Intake & Output 07/12/22 07/13/22 07/14/22 07/15/22 23:59 23:59 23:59 23:59 Intake Total 4090 130 Balance 4090 130 Meds/Results Medications: Active Medications Generic Name Dose Route Start Last Admin Trade Name Freq PRN Reason Stop Dose Admin Donepezil HCl 5 mg 07/14/22 21:00 07/14/22 20:31 Donepezil Hcl 5 Mg Tablet PO 5 mg HS HENNA Administration Enoxaparin Sodium 40 mg 07/15/22 09:00 07/15/22 09:25 Enoxaparin 40 Mg/0.4 Ml Syringe SUB-Q 40 mg DAILY HENNA Administration Sodium Chloride 1,000 mls @ 75 mls/hr 07/13/22 23:55 07/15/22 09:24 Normal Saline Iv IV CONT Not Given .[id number] HENNA Ondansetron HCl 4 mg 07/13/22 23:55 Ondansetron Inj 4 Mg/2 Ml Vial IV PUSH Q4H PRN Nausea Pravastatin Sodium 40 mg 07/14/22 21:00 07/14/22 20:31 Pravastatin Sodium 20 Mg Tablet PO 40 mg HS HENNA Administration Radiology Results: ITS Impressions Head CT 07/13/22 21:18 IMPRESSION: No acute intracranial process. Cervical Spine CT 07/13/22 21:30 IMPRESSION: No acute fracture or traumatic malalignment in the cervical spine. Chest X-R
[2022-07-15 12:35] LABS: Thyroid Stimulating Hormone Reflex 0.815 uIU/mL (0.465-4.68)
[2022-07-15 13:10] LABS: Folic Acid 11.4 ng/mL (2.76->20)
[2022-07-15 14:00] VITALS: BP 114/48; PULSE 52; RESP 16; TEMP 37.5; O2SAT 98
--- NOTE | 2022-07-15 14:11 | PM.DS ---
DS: Admitting Diagnosis Discharge Date 07/15/22 Admitting Diagnosis Fall DS: Discharge Diagnosis Discharge Diagnosis (1) Fall: Code(s): W19.XXXA - Unspecified fall, initial encounter Status: Acute (2) Generalized weakness: Code(s): R53.1 - Weakness Status: Acute (3) Dementia: Code(s): F03.90 - Unspecified dementia, unspecified severity, without behavioral disturbance, psychotic disturbance, mood disturbance, and anxiety Status: Acute DS: Summary Hospital Course Reason for hospitalization: 86yo female with dementia here for a fall. Please see H&P for details. Hospital Course: Admitted to regular medical floor. Telemetry showing no significant dysrhythmias.? Etiology unclear.? Urinalysis shows hematuria and proteinuria which is chronic but this did not trigger urine culture.? White count was slightly elevated but normalized on repeat.? Not on antibiotics.? Started on IV fluids but patient eating reasonably well (50-100% of meals) so IV fluids stopped. TSH, B12 and folate levels normal. She worked with PT and OT. Further workup can be done if felt appropriate by the primary care provider for the hematuria and proteinuria but this is long standing and not felt patient needs to remain hospitalized for these issues. She overall did well and was able to be discharged on 07/15/22 Status at Discharge Cognitive/behavioral status at discharge: stable Time Spent with Patient Time attestation: Total time spent providing and/or coordinating discharge services: 35 minutes. Time spent: Greater than 30 minutes Exam Narrative: AF 97.6 132/70 93 18 96% ra Gen - NARD Chest - lungs clear anteriorly. nml RR CV - irregularly irregular. Tele showing sinus arrhythmias and PACs Abd - Soft, NT/ND, Positive BS Ext - No pedal edema Neuro - Alert and oriented x2 (location and Matt name). Normal resident care associate Psych - Nml mood but flat affect Skin - Warm and dry DS: Data Data Completed and Pending Labs on day of discharge: Labs from last 24 hours 07/15/22 07/15/22 06:01 05:59 WBC 7.6 RBC 4.16 L Hgb 11.2 L Hct 34.6 L MCV 83.2 MCH 26.9 MCHC 32.4 RDW 13.8 Plt Count 141 L MPV 10.8 H Immature Gran % (Auto) 0.3 Neut % (Auto) 66.5 Lymph % (Auto) 24.9 [place] % (Auto) 7.3 Eos % (Auto) 0.5 Baso % (Auto) 0.5 Lymph # (Auto) 1.90 [place] # (Auto) 0.6 Eos # (Auto) 0.0 Baso # (Auto) 0.0 Abs Immat Gran (auto) 0.02 Absolute Neuts (auto) 5.1 Absolute Nucleated RBC 0.0 Nucleated RBC % 0.0 % Immature Plt Fraction 4.8 Sodium 134 L Potassium 3.3 L Chloride 105 Carbon Dioxide 25 Anion Gap 4 L BUN 13 D Creatinine 0.60 L Estim Creat Clear Calc Not Reportable Estimated GFR > 60 Glucose 98 Calcium 8.9 Magnesium 1.4 L Total Bilirubin 0.8 AST 22 ALT 18 Alkaline Phosphatase 79 Total Protein 6.0 L Albumin 3.4 L Vitamin B12 998.0 H Folate 11.4 TSH (Reflex) 0.815 Discharge Plan Discharge Attending physician on discharge: Rashel Lopez Discharging Clinician: Rashel Lopez Anticipated Discharge Date/Time: 07/15/22 14:14 Patient Disposition: SNF Activity: as tolerated Diet: regular Discharge Instructions: Take precautions to avoid falls. Rise slowly from a lying or sitting position. Pause before standing or walking. Contact the doctor if the patient has lightheadedness with standing or other worrisome symptoms. Avoid NSAIDs (ibuprofen, naproxen, Aleve). Tylenol is safe to take. Follow-up with the provider at the facility. Thank you for using [facility] for your health care needs. Patient Instructions: Altered Mental Status (GEN) Stand Alone Forms: General Discharge Information Follow-up/Referrals: Todd,DO Bernardo [Primary Care Provider] - Call for Appointment Discharge Medications: Continued pravastatin 40 mg tablet 40 mg P
[2022-07-15 17:00] LABS: EDCOVIDSCREEN Negative (Negative)
== END 2022-07-15 17:08 ==
LOC: ANHED 20:56 → ANH3MEDSUR 07-14 02:41
PROVIDERS: Internal Medicine; Admitting Provider Internal Medicine; Emergency Provider General Practice; PCP Student in an Organized Health Care Education/Training Program; Visit Provider Internal Medicine
DX: R41.82 Altered mental status, unspecified (principal); S50.312A Abrasion of left elbow, initial encounter; W19.XXXA Unspecified fall, initial encounter; R53.1 Weakness; M79.652 Pain in left thigh; G89.29 Other chronic pain; M16.12 Unilateral primary osteoarthritis, left hip; Z20.822 Contact with and (suspected) exposure to COVID-19; M51.36 Other intervertebral disc degeneration, lumbar region; I10 Essential (primary) hypertension; R80.9 Proteinuria, unspecified; R31.9 Hematuria, unspecified; R94.31 Abnormal electrocardiogram [ECG] [EKG]; E78.5 Hyperlipidemia, unspecified; R26.2 Difficulty in walking, not elsewhere classified; G30.9 Alzheimer's disease, unspecified; F02.80 Dementia in other diseases classified elsewhere, unspecified severity, without behavioral disturbance, psychotic disturbance, mood disturbance, and anxiety; Z87.891 Personal history of nicotine dependence; Z86.73 Personal history of transient ischemic attack (TIA), and cerebral infarction without residual deficits; Z79.899 Other long term (current) drug therapy; Z82.3 Family history of stroke
CPT/HCPCS: 36415; 70450; 71045; 72125; 73502; 76775; 80053; 81001; 82550; 82607; 82746; 83605; 83690; 83735; 84443; 84484; 85025; 85055; 85610; 85730; 87426; 87636; 93005; 96361; 96372; 96374; 97162; 97165; 97530; 97535; 99285; A9270; C9803; G0378; J1650; J3475; J7030

== ENCOUNTER 2022-07-22 10:27 | Outpatient (CLI) | payer OTHER, SELFPAY ==
[2022-07-22 11:10] LABS: Anion Gap 4 mmol/L (8-16); Blood Urea Nitrogen 24 mg/dL (7-17); Calcium 10.2 mg/dL (8.4-10.2); Carbon Dioxide 31 mmol/L (22-30); Chloride 104 mmol/L (98-107); Estimated Glomerular Filt Rate 53; Glucose 106 mg/dL (65-110); Magnesium 1.8 mg/dL (1.6-2.3); Potassium 4.1 mmol/L (3.4-5.0); Sodium 139 mmol/L (137-145)
== END 2022-07-22 10:28 | disposition home or self-care (01) ==
PROVIDERS: PCP Student in an Organized Health Care Education/Training Program; Visit Provider Internal Medicine Cardiovascular Disease
DX: I95.1 Orthostatic hypotension (principal)
CPT/HCPCS: 36415; 80048; 83735

== ENCOUNTER 2022-12-18 20:59 | Observation (INO) | payer OTHER, SELFPAY ==
[2022-12-18] VITALS (8 sets, daily range): BP systolic 146–152; BP diastolic 63–84; PULSE 98–105; RESP 12–35; TEMP 37.1; O2SAT 96–98
--- NOTE | ~2022-12-18 | XR_ITS ---
EXAMINATION: XR chest 1V INDICATION: Altered mental status TECHNIQUE: AP view of the chest is obtained. COMPARISON: 07/13/2022 FINDINGS: The lungs are free of acute opacities. No pleural effusion or pneumothorax. The cardiomedia stinal silhouette is normal. 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 IMPRESSION: 1. No acute cardiopulmonary abnormality. Reviewed, dictated and finalized at location F.
--- NOTE | ~2022-12-18 | CT_ITS ---
EXAMINATION: CT brain wo con INDICATION: Altered mental status COMPARISON: 07/13/2022 TECHNIQUE: Standard unenhanced head CT. The dose-length product (DLP) was 681.00 mGy-cm. The mA was a djusted according to patient size. Iterative reconstruction technique was employed. FINDINGS: No acute intraparenchymal hemorrhage. No evidence of mass lesion. No evidence of acute infa rction. Old lacunar infarcts are again noted in the bilateral basal ganglia. There is moderate perive ntricular and subcortical hypodensity probably related to small vessel ischemic disease. There is mod erate prominence of the sulci and ventricles related to cerebral atrophy. Intracranial calcified cere bral atherosclerosis is noted. No extra-axial collections. No mass effect or midline shift. The orbit s and soft tissues are unremarkable. There is a polyp or mucous retention cyst of the right maxillary sinus. IMPRESSION: 1. Areas of prior infarction without acute intracranial abnormality. 2. Age related findings. Reviewed, dictated and finalized at location F.
--- NOTE | 2022-12-18 22:43 | ECG_ITS ---
Measurements Intervals [place] Rate: 96 P: NV: 0 QRS: 1 QRSD: 82 T: 85 QT: 360 QTc: 455 Interpretive Statements ATRIAL FIBRILLATION NONSPECIFIC ST & T-WAVE ABNORMALITY- ANTEROLAT/HIGH LAT LEADS BASELINE ARTIFACT- I, II, III, AVR, AVL, AVF, V1-V2 ABNORMAL ECG COMPARED TO ECG 07/13/2022 21:03:58 ATRIAL FIBRILLATION NOW PRESENT Electronically Signed On 12-19-2022 8:08:50 CDT by Davion Baldwin D.O.
[2022-12-18] MEDS: SODIUM CHLORIDE 0.9% IV 1,000 ML 999 ML IV CONT (23:09)
--- NOTE | 2022-12-18 23:28 | ED.AMS ---
HPI - Altered Mental Status General Chief Complaint: Altered Mental Status Stated Complaint: AMS, WEAKNESS Time Seen by Provider: 12/18/22 21:36 History of Present Illness HPI narrative: This is an 87-year-old female, with past history of Alzheimer's, oriented to self, time and location, brought in by family for altered mental status for the past 2 days. The patient's daughter who is at bedside noted yesterday, the patient fell to her knees but did not hit her head. Today, she notes the patient is somewhat more lethargic than usual and more confused than usual. She denies any recent change in medications or known sick contacts. She states this is similar to previous episodes of urinary tract infection Related Data Home Medications Medication Instructions Recorded Confirmed pravastatin 40 mg tablet 40 mg PO HS 05/17/20 12/19/22 donepezil 5 mg tablet 1 tablet PO HS 09/15/21 12/19/22 memantine 5 mg tablet (Namenda) 5 mg PO HS 07/22/22 12/19/22 Allergies Allergy/AdvReac Type Severity Reaction Status Date / Time Quinolones Allergy Mild unsure Verified 07/22/22 09:45 ciprofloxacin Allergy Unknown unsure Verified 07/22/22 09:45 penicillin G Allergy Unknown unsure Verified 07/22/22 09:45 Penicillins Allergy Unknown unsure Verified 07/22/22 09:45 tetracycline Allergy Unknown unsure Verified 07/22/22 09:45 Review of Systems Review of Systems: CONSTITUTIONAL: Denies fever, chills, or sweats. CARDIOVASCULAR: Denies chest pain, palpitations, or edema. RESPIRATORY: Denies cough or dyspnea. GASTROINTESTINAL: Denies abdominal pain, nausea, vomiting, or diarrhea. GENITOURINARY: Denies dysuria or hematuria. SKIN: Denies rash or itching. MUSCULOSKELETAL: Denies back pain, joint pain, or myalgia. NEUROLOGIC: Denies headache, numbness, dizziness, or weakness. PSYCHIATRIC: Denies anxiety or depression. [facility] Past Medical History Medical History Dementia History of CVA (cerebrovascular accident) Per CT scanChronic lacunar infarct of left basal ganglia Cerebral atherosclerosis and chronic small vessel ischemic changes of the cerebral white matter 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 She lives home alone. She is listed as . She tells me she has 1 daughter. 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 She is listed as a full code and her daughter is the durable power disability attorney for healthcare. Code status full code Smoking packs per day: 1 Smoking cigarettes per day: 20.0 Years smoked: 20 Smoking pack-years: 20.00 Smoking status: Former smoker Alcohol intake: never Substance use: never Substance use type: does not use Lack of Transportation: No Lack of Food: Never True Current Housing: I Have Housing Concerned About Future Housing: No Difficulty Paying Gas/Electric Bills: No Difficulty Paying for Meds: No Currently Unemployed: No Education: High School Diploma/GED Difficulty w/ Childcare or Family Care: No Gender identity (if verbalized by the patient): Female Spiritual care concerns: No Exam Narrative: GENERAL: Well-developed, well-nourished, and in no acute distress. HEAD: Normoceph
[2022-12-18 23:29] LABS: Acetaminophen < 10 ug/mL (10-30); Ethanol < 10 mg/dL (<10); Salicylate < 1.0 mg/dL (2-20)
[2022-12-18 23:30] LABS: Alanine Aminotransferase 23 U/L (6-35); Alkaline Phosphatase 74 U/L (38-126); Anion Gap 6 mmol/L (8-16); Aspartate Amino Transferase 39 U/L (14-36); Bilirubin,Total 0.7 mg/dL (0.2-1.3); Blood Urea Nitrogen 49 mg/dL (7-17); Calcium 10.3 mg/dL (8.4-10.2); Carbon Dioxide 28 mmol/L (22-30); Chloride 104 mmol/L (98-107); Estimated Glomerular Filt Rate 24; Glucose 110 mg/dL (65-110); Potassium 3.8 mmol/L (3.4-5.0); Sodium 138 mmol/L (137-145)
[2022-12-18 23:38] LABS: Basophils Percent Auto 0.3 % (0.2-1.2); Eosinophils Percent Auto 0.1 % (0-4.4); Hematocrit 34.1 % (37.0-47.0); Hemoglobin 10.9 g/dL (12.0-15.0); Immature Granulocyte Absolute 0.02 K/mm3 (0.00-0.031); Immature Granulocyte Percent A 0.2 % (0-0.5); Lymphocytes Absolute Auto 1.27 K/mm3 (0.9-3.2); Lymphocytes Percent Auto 14.3 % (18.3-44.2); Mean Corpuscular Hemoglobin 26.5 pg (26-34); Mean Platelet Volume 11.9 fl (7.4-10.4); Monocytes Absolute Auto 0.5 K/mm3 (0.1-0.6); Monocytes Percent Auto 5.5 % (2.6-8.5); Neutrophils Absolute Auto 7.1 K/mm3 (1.3-6.7); Neutrophils Percent Auto 79.6 % (45.5-73.1); Platelet Count Result 173 k/mm3 (150-375); Red Blood Count 4.11 M/mm3 (4.2-5.4); Red Cell Distribution Width 13.7 % (11.5-14.5); White Blood Count 8.9 K/mm3 (4.5-10.0)
[2022-12-18 23:41] LABS: Troponin I 0.019 ng/mL (0.000-0.034)
[2022-12-19] VITALS (17 sets, daily range): BP systolic 131–197; BP diastolic 47–97; PULSE 95–122; RESP 12–28; TEMP 36.8–37.1; O2SAT 94–99; BMI 19.8
[2022-12-19 00:03] LABS: Amphetamine Screen Urine Negative (Negative); Barbiturate Screen Urine Negative (Negative); Benzodiazepines Screen Urine Negative (Negative); Cannabinoid Screen Urine Negative (Negative); Cocaine Screen Urine Negative (Negative); Methadone Screen Urine Negative (Negative); Opiate Screen Urine Negative (Negative); Phencyclidine Screen Urine Negative (Negative)
[2022-12-19 00:17] LABS: Appearance Urine Turbid (Clear); Bacteria Urine 4+ /hpf; Bilirubin Urine Negative (Negative); Blood Urine 3+ (Negative); Color Urine Yellow (Yellow); Glucose Urine UA Negative (Negative); Ketones Urine Trace mg/dL (Negative); Leukocyte Esterase Ur 3+ LEU/UL (Negative); Need Manual Microscopic Reviewed; Nitrate Urine Negative (Negative); Non Pathogenic Casts 0-2; Protein Urine 2+ mg/dL (Negative); Specific Grav Ur 1.019 (1.001-1.035); Squamous Epithelial Cell Urine None seen /hpf (Few); WBC Urine >100 /hpf; pH Urine 5.5 (5.0-9.0)
[2022-12-19 00:20] LABS: Add Urine Microscopic? YES
--- NOTE | 2022-12-19 02:39 | ADMGEN ---
This patient, Janis Whittington, was admitted to [facility] Surg Room 326-01. Patient/family oriented to hospital policies and general routines including ID bracelet, bed and alarms, visiting hours, pain management, procedures, bathroom and other care routines, personal items, smoking policy, room service/diet, and visiting hours. Information on how to activate the Rapid Response Team has been discussed. Patient/Family are encouraged to report perceived risks to care and to ask questions if they do not understand what they are told or what they should do.
--- NOTE | 2022-12-19 05:47 | PM.IMHP ---
H&P: HPI History of Present Illness Date/Time: 12/19/22 05:47 Chief Complaint: Patient was brought to the ER for evaluation by family with altered mental status for 2 days Narrative: 87 years old white female with as Alzheimer's dementia lives at home with her family. She is feeling weak, tired and fatigued with an altered mental status for the last 2 days. According to her daughter, patient fell to her knees but did not hit her head and was more lethargic than usual and more confused today. Patient was brought to the ER for evaluation, workup was done which showed UTI and dehydration. She was started on IV antibiotics and IV fluids and feels a little better. She is being admitted for medical management and close monitoring. Review of Systems Review of Systems: Unable to be obtained. Patient is pleasantly confused. ROS unobtainable: Yes unobtainable due to medical condition and unobtainable due to mental status PMFSH Past Medical History Medical History Dementia History of CVA (cerebrovascular accident) Per CT scanChronic lacunar infarct of left basal ganglia Cerebral atherosclerosis and chronic small vessel ischemic changes of the cerebral white matter 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 She lives home alone. She is listed as . She tells me she has 1 daughter. 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 She is listed as a full code and her daughter is the durable power privacy attorney for healthcare. Code status full code Smoking packs per day: 1 Smoking cigarettes per day: 20.0 Years smoked: 20 Smoking pack-years: 20.00 Smoking status: Former smoker Alcohol intake: never Substance use: never Substance use type: does not use Lack of Transportation: No Lack of Food: Never True Current Housing: I Have Housing Concerned About Future Housing: No Difficulty Paying Gas/Electric Bills: No Difficulty Paying for Meds: No Currently Unemployed: No Education: High School Diploma/GED Difficulty w/ Childcare or Family Care: No Gender identity (if verbalized by the patient): Female Spiritual care concerns: No Meds Home Medications and Allergies Home Medications Medication Instructions Recorded Confirmed Type pravastatin 40 mg tablet 40 mg PO HS 05/17/20 12/19/22 History donepezil 5 mg tablet 1 tablet PO HS 09/15/21 12/19/22 History memantine 5 mg tablet (Namenda) 5 mg PO HS 07/22/22 12/19/22 History Allergies Allergy/AdvReac Type Severity Reaction Status Date / Time Quinolones Allergy Mild unsure Verified 07/22/22 09:45 ciprofloxacin Allergy Unknown unsure Verified 07/22/22 09:45 penicillin G Allergy Unknown unsure Verified 07/22/22 09:45 Penicillins Allergy Unknown unsure Verified 07/22/22 09:45 tetracycline Allergy Unknown unsure Verified 07/22/22 09:45 Vital Signs Vital Signs - 24 hr 12/18/22 21:01 12/18/22 21:33 12/19/22 01:15 Temperature 37.1 C Pulse Rate 100 99 Respiratory Rate 16 Blood Pressure 152/73 H Pulse Oximetry 96 Oxygen Delivery Room Air Room Air 12/18/22 21:09 12/18/22 21:35 12/18/22 22:33 Temperature Pulse Rate 98 Respi
[2022-12-19] MEDS: KCL 20 MEQ/D5/0.45% SOD CHL 1,000 ML 75 ML IV CONT (06:52)
[2022-12-19] MEDS: ENOXAPARIN 30 MG/0.3 ML SYRINGE SUB-Q (08:22)
--- NOTE | 2022-12-19 11:35 | PM.IMPN ---
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 intake and urinary tract infection -IV fluids patient received a L NS bolus in the ED, continue KCl 20mEq in D5 half NS -creatinine increased to 2.0 from baseline of 0.6-1.0 # chronic conditions -Alzheimer's dementia: Continue home donepezil, Namenda -hyperlipidemia: Pravastatin Diet: Heart healthy DVT prophylaxis: Lovenox Code status: Full code Disposition: Likely home in 2-3 Subjective Date/time seen: 12/19/22 11:35 Interval history: Patient seen and examined. She is doing well no new complaints. Patient admitted overnight with UTI and acute kidney injury. Continue antibiotics and IV fluids. She denies fever, chills, nausea vomiting, diarrhea. She endorses being fatigued. Will continue monitor for next few days. Discharge pending PT evaluation. Review of Systems Review of Systems: 10 point ROS complete, negative other than what is specified in HPI. Exam Narrative: - GENERAL: Pleasant elderly woman in no acute distress. - EYES: EOMI. Anicteric. - HENT: Moist mucous membranes. - LUNGS: Clear to auscultation bilaterally, no wheezing, rhonchi, or rales. - CARDIOVASCULAR: Regular rate and rhythm. No murmur. No JVD. - ABDOMEN: Soft, non-tender and non-distended. No palpable masses. - EXTREMITIES: No edema. Peripheral pulses 2+. Non-tender. - NEUROLOGIC: No focal neurological deficits. CN II-XII grossly intact. - PSYCHIATRIC: Awake, Alert and oriented. Appropriate mood and affect. - SKIN: No rashes or lesions. Warm. - LYMPH: No cervical lymphadenopathy. Objective Data Vital Signs Vital Signs: Vital Signs - 24 hr 12/18/22 21:01 12/18/22 21:33 12/19/22 01:15 Temperature 37.1 C Pulse Rate 100 99 Respiratory Rate 16 Blood Pressure 152/73 H Pulse Oximetry 96 Oxygen Delivery Room Air Room Air 12/18/22 21:09 12/18/22 21:35 12/18/22 22:33 Temperature Pulse Rate 98 Respiratory Rate 17 12 17 Blood Pressure 146/63 H Pulse Oximetry Oxygen Delivery 12/18/22 23:41 12/18/22 23:45 12/18/22 23:46 Temperature Pulse Rate 101 H 99 105 H Respiratory Rate 20 35 H Blood Pressure 146/84 H Pulse Oximetry 98 98 97 Oxygen Delivery 12/19/22 00:00 12/19/22 00:01 12/19/22 00:15 Temperature Pulse Rate 117 H 118 H 110 H Respiratory Rate 21 H 22 H 20 Blood Pressure 176/97 H Pulse Oximetry 96 96 95 Oxygen Delivery 12/19/22 00:16 12/19/22 00:30 12/19/22 00:31 Temperature Pulse Rate 117 H 122 H 116 H Respiratory Rate 26 H 22 H 28 H Blood Pressure 175/85 H 176/91 H Pulse Oximetry 96 97 95 Oxygen Delivery 12/19/22 00:45 12/19/22 00:46 12/19/22 01:00 Temperature Pulse Rate 119 H 113 H 112 H Respiratory Rate 24 H 27 H 21 H Blood Pressure 197/73 H Pulse Oximetry 94 95 95 Oxygen Delivery 12/19/22 01:01 12/19/22 01:02 12/19/22 01:19 Temperature Pulse Rate 116 H 117 H 114 H Respiratory Rate 20 22 H 25 H Blood Pressure 188/91 H Pulse Oximetry 95 94 95 Oxygen Delivery 12/19/22 01:35 12/19/22 02:15 12/19/22 05:48 Temperature 37.1 C 36.8 C Pulse Rate 115 H 114 H 104 H Respiratory Rate 19 16 16 Blood Pressure 184/71 H 131/57 L Pulse Oximetry 95 94 99 Oxygen Delivery 12/19/22 08:15 Temperature Pulse Rate Respiratory Rate Blood Pressure Pulse Oximetry Oxygen Delivery
[2022-12-19] MEDS: MEMANTINE 5 MG TABLET PO (20:11)
[2022-12-19] MEDS: PRAVASTATIN SODIUM 20 MG TABLET 40 MG PO (20:11)
[2022-12-19] MEDS: DONEPEZIL HCL 5 MG TABLET PO (20:11)
[2022-12-20 06:00] VITALS: BP 114/51; PULSE 68; RESP 14; TEMP 35.7; O2SAT 97
[2022-12-20 06:31] LABS: Basophils Percent Auto 0.4 % (0.2-1.2); Eosinophils Absolute Auto 0.1 K/mm3 (0-0.3); Eosinophils Percent Auto 1.1 % (0-4.4); Hematocrit 29.8 % (37.0-47.0); Hemoglobin 9.5 g/dL (12.0-15.0); Immature Granulocyte Absolute 0.03 K/mm3 (0.00-0.031); Immature Granulocyte Percent A 0.4 % (0-0.5); Immature Platelet Fraction Pct 5.4 % (0.9-11.2); Lymphocytes Absolute Auto 2.31 K/mm3 (0.9-3.2); Lymphocytes Percent Auto 29.2 % (18.3-44.2); Mean Corpuscular HGB Conc 31.9 g/dl (32-36); Mean Corpuscular Hemoglobin 26.5 pg (26-34); Mean Corpuscular Volume 83.2 fl (80-100); Mean Platelet Volume 11.4 fl (7.4-10.4); Monocytes Absolute Auto 0.5 K/mm3 (0.1-0.6); Monocytes Percent Auto 6.1 % (2.6-8.5); Neutrophils Percent Auto 62.8 % (45.5-73.1); Platelet Count Result 138 k/mm3 (150-375); Red Blood Count 3.58 M/mm3 (4.2-5.4); Red Cell Distribution Width 13.7 % (11.5-14.5); White Blood Count 7.9 K/mm3 (4.5-10.0)
[2022-12-20 06:51] LABS: Anion Gap 2 mmol/L (8-16); Blood Urea Nitrogen 22 mg/dL (7-17); Calcium 9.2 mg/dL (8.4-10.2); Carbon Dioxide 27 mmol/L (22-30); Chloride 105 mmol/L (98-107); Estimated CRCL calculation 38 ml/min; Estimated Glomerular Filt Rate > 60; Glucose 93 mg/dL (65-110); Magnesium 1.4 mg/dL (1.6-2.3); Phosphorus 2.1 mg/dL (2.5-4.5); Potassium 3.2 mmol/L (3.4-5.0); Sodium 134 mmol/L (137-145)
[2022-12-20] MEDS: ENOXAPARIN 30 MG/0.3 ML SYRINGE SUB-Q (08:33)
[2022-12-20] MEDS: MAGNESIUM SULF 2 GM/WATER 50ML 2 GM/50 ML BAG IVPB (08:33)
[2022-12-20] MEDS: POTASSIUM CHLORIDE 20 MEQ ER TABLET 40 MEQ PO (08:33)
[2022-12-20 10:24] VITALS: O2SAT 97
--- NOTE | 2022-12-20 11:00 | PM.IMPN ---
Progress Note: A&P Assessment and Plan (1) Dementia: Code(s): F03.90 - Unspecified dementia, unspecified severity, without behavioral disturbance, psychotic disturbance, mood disturbance, and anxiety Status: Acute (2) Electrolyte imbalance: Code(s): E87.8 - Other disorders of electrolyte and fluid balance, not elsewhere classified Status: Acute (3) E-coli UTI: Code(s): N39.0 - Urinary tract infection, site not specified; B96.20 - Unspecified Escherichia coli [E. coli] as the cause of diseases classified elsewhere Status: Acute Plan # Ecoli urinary tract infection -UA concerning for UTI, UCx positive for e.coli -antibiotics:? 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 intake and urinary tract infection -stop IVF with normalized labs -creatinine improved from 2 to 0.8, now at baseline of 0.6-1.0 # electrolyte imbalances -hypomagnesemia: Magnesium 1.4 given 2 g Mag sulfate -hypokalemia: Potassium 3.2 giving 40 mEq potassium chloride -these deficiencies likely nutritional # chronic conditions -Alzheimer's dementia: Continue home donepezil, Namenda -hyperlipidemia: Pravastatin Diet:??Heart healthy DVT prophylaxis:? Lovenox Code status:??Full code Disposition:?[facility] Subjective Date/time seen: 12/20/22 11:00 Interval history: Patient seen examined. She is doing well no new complaints. Patient's affect is very flat number Alzheimer's. We will continue Rocephin for UTI. Creatinine improved significantly from 2-0.8. We have stopped IV fluid. She denies fever, chills, nausea, vomiting or diarrhea. Repleting potassium and magnesium today. Review of Systems Review of Systems: 10 point ROS complete, negative other than what is specified in HPI. Exam Narrative: - GENERAL:? Pleasant elderly woman in no acute distress. - EYES: EOMI. Anicteric. - HENT: Moist mucous membranes. - LUNGS: Clear to auscultation bilaterally, no wheezing, rhonchi, or rales. - CARDIOVASCULAR: Regular rate and rhythm. No murmur. No JVD. - ABDOMEN: Soft, non-tender and non-distended. No palpable masses. - EXTREMITIES: No edema. Peripheral pulses 2+. Non-tender. - NEUROLOGIC: No focal neurological deficits. CN II-XII grossly intact. - PSYCHIATRIC: Awake, Alert and oriented. Appropriate mood and affect. - SKIN: No rashes or lesions. Warm. - LYMPH: No cervical lymphadenopathy. Objective Data Vital Signs Vital Signs: Vital Signs - 24 hr 12/19/22 15:20 12/19/22 14:00 12/19/22 20:00 Temperature 36.8 C Pulse Rate 98 Respiratory Rate 14 Blood Pressure 147/47 H Pulse Oximetry 99 Oxygen Delivery Room Air Room Air 12/19/22 22:00 12/20/22 06:00 12/20/22 08:30 Temperature 36.8 C 35.7 C L Pulse Rate 95 68 Respiratory Rate 12 14 Blood Pressure 135/54 L 114/51 L Pulse Oximetry 97 97 Oxygen Delivery Room Air 12/20/22 10:24 Temperature Pulse Rate Respiratory Rate Blood Pressure Pulse Oximetry 97 Oxygen Delivery Room Air Intake/Output Intake/Output: Intake & Output 12/17/22 12/18/22 12/19/22 12/20/22 23:59 23:59 23:59 23:59 Intake Total 3174 288 Output Total 950 200 Balance 2224 88 Meds/Results Medications: Active Medications Generic Name Dose Route Start Last Admin Trade Name Freq PRN Reason Stop Dose Admin Acetaminophen 650 mg 12/19/22 06:00 Acetaminophen 325 Mg Tablet PO Q4H PRN Mild Pain (1-3) or Fever Al Hydrox/Mg Hydrox/Simethicone 30 ml 12/19/22 06:00 Mag Hydrox/Al Hydrox/Simeth 30 Ml Udc PO QID PRN Dyspepsia Donepezil HCl 5 mg 12/19/22 21:00 12/19/22 20:11 Donepezil Hcl 5 Mg Tablet PO 5 mg HS HENNA Administration Enoxaparin Sodium 30 mg 12/19/22 09:00 12/20/22 08:33 Enoxaparin 30 Mg/0.3 Ml Syringe SUB-Q 30 mg DAILY HENNA Administration
[2022-12-20 14:00] VITALS: BP 116/57; PULSE 65; RESP 12; TEMP 36.4; O2SAT 97
[2022-12-20] MEDS: DONEPEZIL HCL 5 MG TABLET PO (20:54)
[2022-12-20] MEDS: MEMANTINE 5 MG TABLET PO (20:54)
[2022-12-20] MEDS: PRAVASTATIN SODIUM 20 MG TABLET 40 MG PO (20:54)
[2022-12-20 21:40] VITALS: BP 141/55; PULSE 72; RESP 18; TEMP 36.8; O2SAT 95
[2022-12-21 06:00] VITALS: BP 143/60; PULSE 61; RESP 18; TEMP 36.2; O2SAT 98
[2022-12-21 06:52] LABS: Basophils Percent Auto 0.5 % (0.2-1.2); Eosinophils Absolute Auto 0.1 K/mm3 (0-0.3); Eosinophils Percent Auto 1.1 % (0-4.4); Hematocrit 32.7 % (37.0-47.0); Immature Granulocyte Absolute 0.02 K/mm3 (0.00-0.031); Immature Granulocyte Percent A 0.3 % (0-0.5); Lymphocytes Absolute Auto 1.94 K/mm3 (0.9-3.2); Lymphocytes Percent Auto 29.1 % (18.3-44.2); Mean Corpuscular HGB Conc 30.6 g/dl (32-36); Mean Corpuscular Hemoglobin 26.5 pg (26-34); Mean Corpuscular Volume 86.5 fl (80-100); Mean Platelet Volume 11.6 fl (7.4-10.4); Monocytes Absolute Auto 0.5 K/mm3 (0.1-0.6); Monocytes Percent Auto 7.1 % (2.6-8.5); Neutrophils Absolute Auto 4.1 K/mm3 (1.3-6.7); Neutrophils Percent Auto 61.9 % (45.5-73.1); Platelet Count Result 140 k/mm3 (150-375); Red Blood Count 3.78 M/mm3 (4.2-5.4); Red Cell Distribution Width 13.8 % (11.5-14.5); White Blood Count 6.7 K/mm3 (4.5-10.0)
[2022-12-21 06:58] LABS: Anion Gap 4 mmol/L (8-16); Blood Urea Nitrogen 22 mg/dL (7-17); Calcium 9.3 mg/dL (8.4-10.2); Carbon Dioxide 26 mmol/L (22-30); Chloride 105 mmol/L (98-107); Estimated CRCL calculation 43 ml/min; Estimated Glomerular Filt Rate > 60; Glucose 94 mg/dL (65-110); Magnesium 1.7 mg/dL (1.6-2.3); Potassium 3.8 mmol/L (3.4-5.0); Sodium 135 mmol/L (137-145)
[2022-12-21 08:00] VITALS: PULSE 61; RESP 18; O2SAT 98
[2022-12-21] MEDS: ENOXAPARIN 30 MG/0.3 ML SYRINGE SUB-Q (08:25)
[2022-12-21 14:00] VITALS: BP 142/60; PULSE 64; RESP 18; TEMP 36.2; O2SAT 99
--- NOTE | 2022-12-21 15:45 | PM.IMPN ---
Progress Note: A&P Assessment and Plan (1) E-coli UTI: Code(s): N39.0 - Urinary tract infection, site not specified; B96.20 - Unspecified Escherichia coli [E. coli] as the cause of diseases classified elsewhere Status: Acute (2) Electrolyte imbalance: Code(s): E87.8 - Other disorders of electrolyte and fluid balance, not elsewhere classified Status: Acute (3) Acute UTI: Code(s): N39.0 - Urinary tract infection, site not specified Status: Acute (4) Bradycardia: Code(s): R00.1 - Bradycardia, unspecified Status: Acute (5) Dementia: Code(s): F03.90 - Unspecified dementia, unspecified severity, without behavioral disturbance, psychotic disturbance, mood disturbance, and anxiety Status: Acute (6) Fall: Code(s): W19.XXXA - Unspecified fall, initial encounter Status: Acute (7) COVID-19: Code(s): U07.1 - COVID-19 Status: Acute (8) Anemia: Code(s): D64.9 - Anemia, unspecified Status: Acute (9) NO (acute kidney injury): Code(s): N17.9 - Acute kidney failure, unspecified Status: Acute (10) Decreased responsiveness: Code(s): R41.89 - Other symptoms and signs involving cognitive functions and awareness Status: Acute (11) Orthostatic hypotension: Code(s): I95.1 - Orthostatic hypotension Status: Acute (12) Hypomagnesemia: Code(s): E83.42 - Hypomagnesemia Status: Acute (13) Generalized weakness: Code(s): R53.1 - Weakness Status: Acute (14) Hyperlipidemia: Code(s): E78.5 - Hyperlipidemia, unspecified Status: Chronic (15) Acute metabolic encephalopathy: Code(s): G93.41 - Metabolic encephalopathy Status: Acute (16) Contusion, hip: Qualifiers: Encounter type: initial encounter Laterality: left Qualified Code(s): S70.02XA - Contusion of left hip, initial encounter Code(s): S70.00XA - Contusion of unspecified hip, initial encounter Status: Acute (17) Fall: Qualifiers: Encounter type: initial encounter Qualified Code(s): W19.XXXA - Unspecified fall, initial encounter Code(s): W19.XXXA - Unspecified fall, initial encounter Status: Acute Plan Plan # Ecoli urinary tract infection -UA concerning for UTI, UCx positive for e.coli -antibiotics:? Continue Rocephin 1 g daily 12/19- -PT/OT consulted for weakness -will continue for at least 3 day antibiotic course 12/21: Stopped ceftriaxone. had 3 days of ceftriaxone. # acute kidney injury on CKD 3B, resolved -likely prerenal from poor p.o. intake and urinary tract infection -stop IVF with normalized labs -creatinine improved from 2 to 0.8, now at baseline of 0.6-1.0 # electrolyte imbalances -hypomagnesemia:? Magnesium 1.4 given 2 g Mag sulfate -hypokalemia: Potassium 3.2 giving 40 mEq potassium chloride -these deficiencies likely nutritional # chronic conditions -Alzheimer's dementia: Continue home donepezil, Namenda -hyperlipidemia: Pravastatin Diet:??Heart healthy DVT prophylaxis:? Lovenox Code status:??Full code Disposition:?SNF Ready for dc to snf. Need to talk with the pt's daughter. Subjective Date/time seen: 12/21/22 15:45 Interval history: Pt's only complaint is tiredness Pt does not remember visitor today Unable to reach daughter to discuss pt's potential dc to snf Review of Systems Review of Systems: Negative otherwise noted in subjective Exam Narrative: - GENERAL:? Pleasant elderly woman in no acute distress. - EYES: EOMI. Anicteric. - HENT: Moist mucous membranes. - LUNGS: Clear to auscultation bilaterally, no wheezing, rhonchi, or rales. - CARDIOVASCULAR: Regular rate and rhythm. No murmur. No JVD. - ABDOMEN: Soft, non-tender and non-distended. No palpable masses. - EXTREMITIES: No edema. Peripheral pulses 2+. Non-tender. - NEUROLOGIC: No focal neurological deficits. CN II-XII grossly intact. - PSYCHIATR
[2022-12-21] MEDS: PRAVASTATIN SODIUM 20 MG TABLET 40 MG PO (20:56)
[2022-12-21] MEDS: MEMANTINE 5 MG TABLET PO (20:56)
[2022-12-21] MEDS: DONEPEZIL HCL 5 MG TABLET PO (20:56)
[2022-12-21 21:17] VITALS: BP 150/66; PULSE 71; RESP 20; TEMP 36.4; O2SAT 97
[2022-12-22 05:20] VITALS: BP 124/53; PULSE 92; RESP 16; TEMP 36; O2SAT 98
[2022-12-22] MEDS: ENOXAPARIN 40 MG/0.4 ML SYRINGE SUB-Q (09:18)
--- NOTE | 2022-12-22 12:36 | P.CDI_ITS ---
CDI Query Clarification Request COVID documented in the assessment and plan. Patients last documented positive COVID test was on 09/19/21 Patient was last tested for COVID on 07/15/22, test was documented negative. There is no documentation that patient was tested for COVID during this admission. Please clarify if the patient is positive for COVID this admission, if known: * Patient is positive for COVID this admission * Patient is not positive for COVID this admission. * Unknown if patient is positive for COVID this admission.
[2022-12-22 14:00] VITALS: BP 118/50; PULSE 70; RESP 14; TEMP 36.7; O2SAT 96
[2022-12-22 17:19] LABS: SARS-CoV-2 RNA PCR Negative (Negative)
--- NOTE | 2022-12-22 17:36 | PM.DS ---
DS: Admitting Diagnosis Discharge Date 12/22/22 Admitting Diagnosis Generalized weakness/uti DS: Discharge Diagnosis Discharge Diagnosis Plan # Ecoli urinary tract infection -UA concerning for UTI, UCx positive for e.coli -antibiotics:? Continue Rocephin 1 g daily 12/19- -PT/OT consulted for weakness -will continue for at least 3 day antibiotic course 12/21: Stopped ceftriaxone. had 3 days of ceftriaxone. # acute kidney injury on CKD 3B, resolved -likely prerenal from poor p.o. intake and urinary tract infection -stop IVF with normalized labs -creatinine improved from 2 to 0.8, now at baseline of 0.6-1.0 # electrolyte imbalances -hypomagnesemia:? Magnesium 1.4 given 2 g Mag sulfate -hypokalemia: Potassium 3.2 giving 40 mEq potassium chloride -these deficiencies likely nutritional # chronic conditions -Alzheimer's dementia: Continue home donepezil, Namenda -hyperlipidemia: Pravastatin Diet:??Heart healthy DVT prophylaxis:? Lovenox Code status:??Full code Disposition:?SNF Ready for dc to snf. Need to talk with the pt's daughter. DS: Summary Hospital Course Reason for hospitalization: Generalized weakness/uti Hospital Course: Chief Complaint: Patient was brought to the ER for evaluation by family with altered mental status for 2 days Narrative: ?87 years old white female with as? Alzheimer's dementia lives at home with her family.? She is feeling weak, tired and fatigued with an altered mental status for the last 2 days. ? According to her daughter, patient fell to her knees but did not hit her head and was more lethargic than usual and more confused today.? Patient was brought to the ER for evaluation, workup was done which showed UTI and dehydration.? She was started on IV antibiotics and IV fluids and feels a little better.? She is being admitted for medical management and? close monitoring. Status at Discharge Cognitive/behavioral status at discharge: still fatigued but more awake and participating with therapy Time Spent with Patient Time attestation: Total time spent providing and/or coordinating discharge services: 30 min Exam Narrative: - GENERAL:? Pleasant elderly woman in no acute distress. - EYES: EOMI. Anicteric. - HENT: Moist mucous membranes. - LUNGS: Clear to auscultation bilaterally, no wheezing, rhonchi, or rales. - CARDIOVASCULAR: Regular rate and rhythm. No murmur. No JVD. - ABDOMEN: Soft, non-tender and non-distended. No palpable masses. - EXTREMITIES: No edema. Peripheral pulses 2+. Non-tender. - NEUROLOGIC: No focal neurological deficits. CN II-XII grossly intact. - PSYCHIATRIC: Awake, Alert and oriented. Appropriate mood and affect. - SKIN: No rashes or lesions. Warm. - LYMPH: No cervical lymphadenopathy. DS: Data Data Completed and Pending Labs on day of discharge: Labs from last 24 hours 12/22/22 16:35 SARS-CoV-2 RNA (RT-PCR) Negative Discharge Plan Discharge Attending physician on discharge: Michael Kelley Consulting providers: Kaylie Solitario Discharging Clinician: Michael Kelley Patient Disposition: SNF Activity: as tolerated Diet: as tolerated Stand Alone Forms: General Discharge Information, Senior Living Discharge Discharge Medications: Continued memantine [Namenda] 5 mg tablet 5 mg PO HS pravastatin 40 mg tablet 40 mg PO HS donepezil 5 mg tablet 1 tablet PO HS Date of admission: 12/19/22 09:20 Primary Care Provider: Todd,Bernardo Admitting Provider: Pérez Mcknight Attending physician on admission: Pérez Mcknight Condition: Serious
== END 2022-12-22 18:45 ==
LOC: ANHED 12-19 01:17 → ANH3MEDSUR 12-19 02:20
PROVIDERS: Student in an Organized Health Care Education/Training Program; Admitting Provider Family Medicine; Emergency Provider Preventive Medicine Aerospace Medicine; PCP Student in an Organized Health Care Education/Training Program; Visit Provider Internal Medicine
DX: N39.0 Urinary tract infection, site not specified (principal); B96.20 Unspecified Escherichia coli [E. coli] as the cause of diseases classified elsewhere; N17.9 Acute kidney failure, unspecified; G30.9 Alzheimer's disease, unspecified; F02.80 Dementia in other diseases classified elsewhere, unspecified severity, without behavioral disturbance, psychotic disturbance, mood disturbance, and anxiety; S70.02XA Contusion of left hip, initial encounter; W19.XXXA Unspecified fall, initial encounter; R94.31 Abnormal electrocardiogram [ECG] [EKG]; I95.1 Orthostatic hypotension; I10 Essential (primary) hypertension; E87.8 Other disorders of electrolyte and fluid balance, not elsewhere classified; E78.5 Hyperlipidemia, unspecified; E83.42 Hypomagnesemia; R41.89 Other symptoms and signs involving cognitive functions and awareness; D64.9 Anemia, unspecified; Z87.891 Personal history of nicotine dependence; Z86.73 Personal history of transient ischemic attack (TIA), and cerebral infarction without residual deficits; Z82.3 Family history of stroke; Z79.899 Other long term (current) drug therapy
CPT/HCPCS: 36415; 70450; 71045; 80048; 80053; 80307; 81001; 83605; 83735; 84100; 84484; 85025; 85055; 87077; 87086; 87186; 87635; 93005; 96361; 96365; 96366; 96367; 96372; 97110; 97161; 97165; 97530; 97535; 99285; A9270; G0378; J0696; J1650; J3475; J3480; J7030

== ENCOUNTER 2023-02-16 08:06 | Observation (INO) | payer OTHER, SELFPAY ==
[2023-02-16] VITALS (21 sets, daily range): BP systolic 137–171; BP diastolic 61–89; PULSE 69–112; RESP 15–22; TEMP 36.4–36.5; O2SAT 93–100; BMI 22.8
--- NOTE | ~2023-02-16 | XR_ITS ---
XR hand RT min 3V 02/16/2023 08:48 Indication: Right hand pain Procedure: 3 views right hand Comparison: No prior studies for comparison. 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 Osteopenia. No fracture or traumatic malali gnment. No focal soft tissue abnormality. No foreign body. Impression: 1: No acute fracture. Reviewed, dictated and finalized at location L. CTOR DIGITAL CATALOGUE Impression: 1: No acute fracture.
--- NOTE | ~2023-02-16 | XR_ITS ---
EXAMINATION: XR chest 1V portable Exam Date/Time: 02/16/2023 21:00 ELIGIBILITY SUPERVISOR HISTORY: Leukocytosis, fall with right humeral neck fractur Comparison: 12/18/2022. RESULT: Lines, tubes, and devices: None. Lungs and pleura: Senescent changes. Trachea bibasilar atelectasis/scar. Cardiomediastinal silhouette: Stable. Other: No acute upper abdominal finding. Proximal right humeral fracture. IMPRESSION: No acute cardiopulmonary process. Reviewed, dictated and finalized at location K. IBILITY SUPERVISOR
--- NOTE | ~2023-02-16 | XR_ITS ---
XR shoulder RT min 2V 02/16/2023 08:49 Indication: Right shoulder pain after fall Procedure: 3 views right shoulder Comparison: 03/20/2008 Findings: There is a comminuted displaced right humeral neck fracture. There are degenerative changes of the acromioclavicular joint. No significant soft tissue abnormality. No foreign bodies. Impression: 1: Comminuted displaced right humeral neck fracture. Reviewed, dictated and finalized at location L. KERING MACHINE ADJUSTER Impression: 1: Comminuted displaced right humeral neck fracture.
--- NOTE | ~2023-02-16 | CT_ITS ---
EXAMINATION: CT brain wo con DATE: 02/16/2023 11:57 INDICATION: Head injury. TECHNIQUE: Computed tomography (CT) of the head was performed without intravenous contrast. The mA wa s adjusted according to patient size. Iterative reconstruction technique was employed. The dose-lengt h product was 681.00 mGy-cm. COMPARISON: Head CT 12/18/2022 FINDINGS: There is an old infarct involving the left basal ganglia and left internal capsule. There a re scattered areas of low attenuation in the cerebral white matter, which is within normal limits for the patient's age. There is diffuse brain volume loss. There is no intracranial hemorrhage, acute in farction, or abnormal intracranial mass lesion. The ventricles are normal in size. The orbits are nor mal. There are mucous retention cysts in the maxillary sinuses. There are trace bilateral mastoid eff usions. IMPRESSION: 1. 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 Reviewed, dictated and finalized at location A. TANK ASSAULT GUNNER
--- NOTE | ~2023-02-16 | CT_ITS ---
EXAMINATION: CT cervical spine wo con DATE: 02/16/2023 11:57 INDICATION: Neck pain after injury TECHNIQUE: Computed tomography (CT) of the cervical spine was performed without intravenous contrast. The dose-length product was 117 mGy-cm. Automated exposure control and iterative reconstruction tech [employer] were employed. COMPARISON: CT dated 07/13/2022 FINDINGS: Accentuated cervical lordosis. Odontoid process is normal. Craniovertebral junction within normal limits. No evidence for perched facet. Vertebral body heights are maintained. There is advance d multilevel facet and to a lesser degree uncinate hypertrophy. Lung apices are normal. No paraspinal soft tissue abnormality. There is intracranial atherosclerosis. There is carotid atherosclerosis. IMPRESSION: 1. No acute abnormality of the cervical spine. Reviewed, dictated and finalized at location L. MERY WORKER
[2023-02-16 11:31] LABS: Basophils Percent Auto 0.2 % (0.2-1.2); Hematocrit 35.2 % (37.0-47.0); Hemoglobin 10.9 g/dL (12.0-15.0); Immature Granulocyte Absolute 0.05 K/mm3 (0.00-0.031); Immature Granulocyte Percent A 0.4 % (0-0.5); Lymphocytes Absolute Auto 1.21 K/mm3 (0.9-3.2); Lymphocytes Percent Auto 10.3 % (18.3-44.2); Mean Platelet Volume 11.4 fl (7.4-10.4); Monocytes Absolute Auto 0.4 K/mm3 (0.1-0.6); Monocytes Percent Auto 3.6 % (2.6-8.5); Neutrophils Percent Auto 85.5 % (45.5-73.1); Platelet Count Result 167 k/mm3 (150-375); Red Blood Count 4.19 M/mm3 (4.2-5.4); White Blood Count 11.7 K/mm3 (4.5-10.0)
--- NOTE | 2023-02-16 11:42 | ED.FALL ---
HPI - Fall General Chief Complaint: Fall Stated Complaint: shoulder injury Time Seen by Provider: 02/16/23 10:32 History of Present Illness HPI Narrative: 87-year-old female history of Alzheimer's presents to the emergency department for evaluation after having a fall from bed. Patient was complaining of right shoulder pain. Patient is unsure if she struck her head or had any loss of consciousness. Patient lives at home with her daughter. Daughter states she does not feel she is able to care for her if the patient is unable to use her walker. Related Data Home Medications Medication Instructions Recorded Confirmed pravastatin 40 mg tablet 40 mg PO HS 05/17/20 02/16/23 memantine 5 mg tablet (Namenda) 5 mg PO HS 07/22/22 02/16/23 AZO Urinary Tract Defense 1 tablet PO DAILY 02/16/23 02/16/23 cyanocobalamin (vitamin B-12) 1 tablet PO DAILY 02/16/23 02/16/23 fexofenadine 30 mg tablet 30 mg PO DAILY 02/16/23 02/16/23 Allergies Allergy/AdvReac Type Severity Reaction Status Date / Time Quinolones Allergy Mild unsure Verified 07/22/22 09:45 ciprofloxacin Allergy Unknown unsure Verified 07/22/22 09:45 penicillin G Allergy Unknown unsure Verified 12/21/22 13:08 Penicillins Allergy Unknown unsure Verified 12/21/22 13:08 tetracycline Allergy Unknown unsure Verified 07/22/22 09:45 Review of Systems Review of Systems: All systems reviewed & are unremarkable except as noted in HPI and below PMFSH Past Medical History Medical History Dementia History of CVA (cerebrovascular accident) Per CT scanChronic lacunar infarct of left basal ganglia Cerebral atherosclerosis and chronic small vessel ischemic changes of the cerebral white matter 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 She lives home alone. She is listed as . She tells me she has 1 daughter. 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 She is listed as a full code and her daughter is the durable power attorney recruiter for healthcare. Code status full code Smoking packs per day: 1 Smoking cigarettes per day: 20.0 Years smoked: 20 Smoking pack-years: 20.00 Smoking status: Former smoker Alcohol intake: never Substance use: never Substance use type: does not use Lack of Transportation: No Lack of Food: Never True Current Housing: I Have Housing Concerned About Future Housing: No Difficulty Paying Gas/Electric Bills: No Difficulty Paying for Meds: No Currently Unemployed: No Education: High School Diploma/GED Difficulty w/ Childcare or Family Care: No Gender identity (if verbalized by the patient): Female Spiritual care concerns: No Exam Narrative: APPEARANCE: Well appearing, no pain, no distress, well-nourished. HEAD: normocephalic, atraumatic. EYES: PERRLA/EOMI, conjunctivae clear. NOSE: Normal no drainage EARS:TMS clear with good light reflex. THROAT: Pharynx clear, no exudate. NECK: Supple. No adenopathy, no masses. RESPIRATORY: Airway patent, respirations nonlabored. Clear to auscultation bilaterally, no rales, rhonchi, wheezing. CARDIOVASCULAR: Regular rate and rhythm without murmurs rubs or gallops. ABDOMINAL: Soft, nontender,
[2023-02-16 11:43] LABS: Alanine Aminotransferase 19 U/L (6-35); Alkaline Phosphatase 82 U/L (38-126); Anion Gap 9 mmol/L (8-16); Aspartate Amino Transferase 31 U/L (14-36); Bilirubin,Total 0.6 mg/dL (0.2-1.3); Blood Urea Nitrogen 34 mg/dL (7-17); Calcium 10.4 mg/dL (8.4-10.2); Carbon Dioxide 27 mmol/L (22-30); Chloride 105 mmol/L (98-107); Estimated CRCL calculation 26 ml/min; Estimated Glomerular Filt Rate 47; Glucose 134 mg/dL (65-110); Potassium 4.2 mmol/L (3.4-5.0); Sodium 141 mmol/L (137-145)
[2023-02-16 12:03] LABS: INR 1.1; Prothrombin Time 14.6 Seconds (11.1-14.7)
[2023-02-16 12:04] LABS: Partial Thromboplastin Time 31.9 SECONDS (22.3-36.8)
--- NOTE | 2023-02-16 13:03 | PM.IMHP ---
H&P: HPI History of Present Illness Date/Time: 02/16/23 13:30 Chief Complaint: Right shoulder pain after fall. Narrative: This is an 87-year-old female with history of stroke, dementia, hypertension, and dyslipidemia who presented to the emergency department via EMS from home for evaluation of right shoulder pain after a fall. She has short-term memory loss and does not really remember what happened and her daughter Janelle provides the majority of the following history. The patient lives with Janelle and she has several cameras was placed throughout the home to keep an eye on the patient. This morning she saw that the patient was lying on the floor next to her bed and so she came home to check on her. Patient told her that she had slipped out of bed. It is unclear how long she had been down the ground. They were able to get the patient seated upright at which time daughter noted that the right arm seemed to be deformed and she was complaining of pain in the right shoulder. She has some bruising to the right hand as well but no complaints of pain there. It is unclear whether not she had head trauma or loss of consciousness. The patient has no complaints at the time my evaluation. Review of Systems Review of Systems: Unable to obtain accurately given her significant short-term memory loss. [facility] Past Medical History Medical History (Updated 02/16/23 @ 20:34 by Jania Miranda PA-C) Chronic anemia Dementia History of CVA (cerebrovascular accident) Per CT scanChronic lacunar infarct of left basal ganglia Cerebral atherosclerosis and chronic small vessel ischemic changes of the cerebral white matter Prominent central and cortical cerebral and cerebellar atrophy No acute intracranial finding or skull fracture 12/30/2020 Hyperlipidemia Hypertension Surgical History Surgical History H/O: hysterectomy Hx of cholecystectomy Family History Family History Father Patient's father is Cerebrovascular accident Mother Patient's mother is Family history of malignant neoplasm of breast in first degree relative Breast cancer Social History Social History (Updated 02/16/23 @ 20:32 by Jania Miranda PA-C) Social History: According to her old records the patient quit in 1987 and she was a social drinker. She lives home alone. She is listed as . She tells me she has 1 daughter. 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 She is listed as a full code and her daughter is the durable power divorce attorney for healthcare. Code status full code Smoking packs per day: 1 Smoking cigarettes per day: 20.0 Years smoked: 20 Smoking pack-years: 20.00 Smoking status: Former smoker Alcohol intake: never Substance use: never Substance use type: does not use Lack of Transportation: No Lack of Food: Never True Current Housing: I Have Housing Concerned About Future Housing: No Difficulty Paying Gas/Electric Bills: No Difficulty Paying for Meds: No Currently Unemployed: No Education: High School Diploma/GED Difficulty w/ Childcare or Family Care: No Spiritual care concerns: No Meds Home Medications and Allergies Home Medications Medication Instructions Recorded Confirmed Type pravastatin 40 mg tablet 40 mg PO HS 05/17/20 02/16/23 History memantine 5 mg tablet (Namenda) 5 mg PO HS 07/22/22 02/16/23 History donepezil 5 mg tablet See Rx Instructions .Route 02/07/23 02/16/23 Rx .COMPLEX #30 tabs AZO Urinary Tract Defense 1 tablet PO DAILY 02/16/23 02/16/23 History cyanocobalamin (vitamin B-12) 1 tablet PO DAILY 02/16/23 02/16/23 History fexofenadine 30 mg tablet 30 mg PO DAILY 02/16/23 02/16/23 History Allergies Allergy/AdvReac Type Severity Reaction Status Date / Time Quinolones Allergy Mild unsure Verified
[2023-02-16] MEDS: MORPHINE SULFATE (*CRX) 4 MG/ML INJ 2 MG IV PUSH ×2 (14:44→20:44)
[2023-02-16] MEDS: DONEPEZIL HCL 5 MG TABLET BY MOUTH (21:43)
[2023-02-16] MEDS: MEMANTINE 5 MG TABLET PO (21:43)
[2023-02-16] MEDS: PRAVASTATIN SODIUM 20 MG TABLET 40 MG PO (21:43)
[2023-02-16] MEDS: SODIUM CHLORIDE 0.9% IV 1,000 ML 100 ML IV CONT (21:49)
[2023-02-17 00:51] LABS: Appearance Urine Clear (Clear); Bacteria Urine None Seen /hpf; Bilirubin Urine Negative (Negative); Blood Urine 2+ (Negative); Color Urine Yellow (Yellow); Glucose Urine UA Negative (Negative); Ketones Urine Trace mg/dL (Negative); Leukocyte Esterase Ur Trace LEU/UL (Negative); Nitrate Urine Negative (Negative); Non Pathogenic Casts 0-2; Protein Urine 1+ mg/dL (Negative); Specific Grav Ur 1.024 (1.001-1.035); Squamous Epithelial Cell Urine None seen /hpf (Few); WBC Urine 0-5 /hpf; pH Urine 6.5 (5.0-9.0)
[2023-02-17 01:03] LABS: Add Urine Microscopic? YES
[2023-02-17 03:55] VITALS: BP 144/44; PULSE 75; RESP 18; TEMP 36.1; O2SAT 96
[2023-02-17 05:23] LABS: Hematocrit 27.9 % (37.0-47.0); Hemoglobin 8.6 g/dL (12.0-15.0); Immature Platelet Fraction Pct 5.4 % (0.9-11.2); Mean Corpuscular HGB Conc 30.8 g/dl (32-36); Mean Corpuscular Hemoglobin 26.4 pg (26-34); Mean Corpuscular Volume 85.6 fl (80-100); Mean Platelet Volume 11.5 fl (7.4-10.4); Platelet Count Result 133 k/mm3 (150-375); Red Blood Count 3.26 M/mm3 (4.2-5.4); Red Cell Distribution Width 15.1 % (11.5-14.5); White Blood Count 7.4 K/mm3 (4.5-10.0)
[2023-02-17 05:43] LABS: Anion Gap 5 mmol/L (8-16); Blood Urea Nitrogen 26 mg/dL (7-17); Calcium 9.3 mg/dL (8.4-10.2); Carbon Dioxide 26 mmol/L (22-30); Chloride 107 mmol/L (98-107); Estimated CRCL calculation 39 ml/min; Estimated Glomerular Filt Rate > 60; Glucose 107 mg/dL (65-110); Magnesium 1.6 mg/dL (1.6-2.3); Potassium 3.3 mmol/L (3.4-5.0); Sodium 138 mmol/L (137-145)
[2023-02-17] MEDS: MORPHINE SULFATE (*CRX) 2 MG/ML INJ IV PUSH (05:53)
[2023-02-17 06:35] LABS: Creatine Kinase 266 U/L (30-135)
[2023-02-17 08:00] VITALS: PULSE 80; RESP 14; O2SAT 96
--- NOTE | 2023-02-17 13:45 | PM.IMPN ---
Progress Note: A&P Assessment and Plan (1) Comminuted right humeral fracture: Code(s): S42.351A - Displaced comminuted fracture of shaft of humerus, right arm, initial encounter for closed fracture Status: Acute Plan replace and recheck potassium lovenox for DVT prophlaxis PT/OT and disposition. appreciate ortho recs. Subjective Date/time seen: 02/17/23 13:45 Interval history: denies pain at the moment. Review of Systems Review of Systems: All systems reviewed & are unremarkable except as noted in HPI and below Exam Const: General: comfortable and no acute distress Other: A&Ox2, baseline Eyes: Pupils: Equal, round and reactive pupils present Resp: Effort & Inspection: normal respiratory effort Auscultation: clear to auscultation bilaterally, no crackles, no rales and no rhonchi Cardio: Rate: regular rate Rhythm: regular rhythm Heart sounds: no gallops, no murmurs and no rubs GI: GI Palp: Yes Soft to palpation and No Tenderness to palpation present (GI) Extrem: General: edema (purple discoloration of R upper arm, no bony abnormalities identified) Other: generalized weakness, no focal deficits. good cap refill right hand Objective Data Vital Signs Vital Signs: Vital Signs - 24 hr 02/16/23 15:27 02/16/23 20:39 02/16/23 20:00 Temperature 97.6 F Pulse Rate 76 76 Respiratory Rate 18 18 Blood Pressure 137/63 Pulse Oximetry 99 99 Oxygen Delivery Room Air Room Air 02/17/23 03:55 Temperature 96.9 F L Pulse Rate 75 Respiratory Rate 18 Blood Pressure 144/44 H Pulse Oximetry 96 Oxygen Delivery Intake/Output Intake/Output: Intake & Output 02/14/23 02/15/23 02/16/23 02/17/23 23:59 23:59 23:59 23:59 Intake Total 240 Output Total 400 Balance -160 Meds/Results Medications: Active Medications Generic Name Dose Route Start Last Admin Trade Name Freq PRN Reason Stop Dose Admin Acetaminophen 650 mg 02/16/23 20:37 Acetaminophen 325 Mg Tablet PO Q6H PRN Mild Pain (1-3) or Fever Cyanocobalamin 1,000 mcg 02/17/23 09:00 Cyanocobalamin 1,000 Mcg Tablet PO [facility] Donepezil HCl 5 mg 02/16/23 21:00 02/16/23 21:43 Donepezil Hcl 5 Mg Tablet BY MOUTH 5 mg HS HENNA Administration Loratadine 10 mg 02/17/23 09:00 Loratadine 10 Mg Tablet PO QAM [facility] Memantine 5 mg 02/16/23 21:00 02/16/23 21:43 Memantine 5 Mg Tablet PO 5 mg HS HENNA Administration Miconazole Nitrate 1 applic 02/17/23 09:00 Miconazole 2% Antifungal Ointment 56 Gm TOPICAL Q12HR [facility] Morphine Sulfate 2 mg 02/17/23 03:29 02/17/23 05:53 Morphine Sulfate (*Crx) 2 Mg/Ml Inj IV PUSH 2 mg Q2H PRN Administration Pain Rated 7-10 Ondansetron HCl 4 mg 02/16/23 12:51 Ondansetron Inj 4 Mg/2 Ml Vial IV PUSH Q4H PRN Nausea Pravastatin Sodium 40 mg 02/16/23 21:00 02/16/23 21:43 Pravastatin Sodium 20 Mg Tablet PO 40 mg HS [facility] Administration Radiology Results: ITS Impressions Shoulder X-Ray 02/16/23 08:52 Impression: 1: Comminuted displaced right humeral neck fracture. Hand X-Ray 02/16/23 08:53 Impression: 1: No acute fracture. Head CT 02/16/23 12:03 IMPRESSION: 1. 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 Cervical Spine CT 02/16/23 12:16 IMPRESSION: 1. No acute abnormality of the cervical spine. Chest X-Ray 02/16/23 21:19 IMPRESSION: No acute cardiopulmonary process. Labs Labs: Laboratory Results - last 24 hr 02/17/23 02/17/23 00:32 05:11 WBC 7.4 RBC 3.26 L Hgb 8.6 L Hct 27.9 L MCV 85.6 MCH 26.4 MCHC 30.8 L RDW 15.1 H Plt Count 133 L MPV 11.5 H % Immature Plt Fraction 5.4 Sodium 138 Potassium 3.3 L Chloride 107 Carbon Dioxide 26 Anion Gap 5 L BUN 26 H Creatinine 0.70 Estim Creat Clear Calc 39 Estimated GFR > 60 Glucose 107 Calcium 9.3 M
[2023-02-17 14:00] VITALS: BP 154/66; PULSE 80; RESP 14; TEMP 36.4; O2SAT 96
--- NOTE | 2023-02-17 15:50 | PM.CNOR ---
Assessment and Plan Assessment and plan (1) Fracture of surgical neck of right humerus: Qualifiers: Encounter type: initial encounter Fracture type: closed Fracture morphology: 2-part Fracture alignment: displaced Qualified Code(s): S42.221A - 2-part displaced fracture of surgical neck of right humerus, initial encounter for closed fracture Code(s): S42.211A - Unspecified displaced fracture of surgical neck of right humerus, initial encounter for closed fracture Status: Acute Plan Proximal humerus fracture is displaced, but is amenable to conservative treatment. The patient is a poor surgical candidate both due to her dementia, activity level, and medical comorbidities. I explained to the patient and her daughter that the shoulder will likely become stiff, but a good functional result is expected. Use the shoulder immobilizer over the next 4-6 weeks. Start physical therapy with gentle elbow wrist and hand activity. Shoulder range of motion exercises can began after 4 weeks. Follow-up in 6 weeks. X-ray surveillance in 2 weeks. She will likely need a short rehab stay due to her inability to use the walker and mobilize safely at home. History of Present Illness HPI Consult date: 02/17/23 Chief complaint: right shoulder fracture Narrative: A 7-year-old elderly female with dementia complains of right shoulder pain after a fall. No numbness, tingling, or other associated symptoms. She lives at home with her daughter. She has had several episodes of falls which have precipitated hospitalizations and short stay rehabilitation. 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 She lives home alone. She is listed as . She tells me she has 1 daughter. 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 She is listed as a full code and her daughter is the durable power litigation attorney associate for healthcare. Code status full code Smoking packs per day: 1 Smoking cigarettes per day: 20.0 Years smoked: 20 Smoking pack-years: 20.00 Smoking status: Former smoker Alcohol intake: never Substance use: never Substance use type: does not use Lack of Transportation: No Lack of Food: Never True Current Housing: I Have Housing Concerned About Future Housing: No Difficulty Paying Gas/Electric Bills: No Difficulty Paying for Meds: No Currently Unemployed: No Education: High School Diploma/GED Difficulty w/ Childcare or Family Care: No Spiritual care concerns: No Meds Home Medications and Allergies Home Medications Medication Instructions Recorded Confirmed Type pravastatin 40 mg tablet 40 mg PO HS 05/17/20 02/16/23 History memantine 5 mg tablet (Namenda) 5 mg PO HS 07/22/22 02/16/23 History donepezil 5 mg tablet See Rx Instructions .Route 02/07/23 02/16/23 Rx .COMPLEX #
[2023-02-17 20:00] VITALS: PULSE 101; RESP 18; O2SAT 98
[2023-02-17] MEDS: PRAVASTATIN SODIUM 20 MG TABLET 40 MG PO (20:49)
[2023-02-17] MEDS: DONEPEZIL HCL 5 MG TABLET BY MOUTH (20:49)
[2023-02-17] MEDS: MEMANTINE 5 MG TABLET PO (20:49)
[2023-02-17 20:52] VITALS: BP 160/63; PULSE 101; RESP 18; TEMP 37.9; O2SAT 98
[2023-02-18 05:35] LABS: Hematocrit 28.4 % (37.0-47.0); Hemoglobin 8.7 g/dL (12.0-15.0); Immature Platelet Fraction Pct 5.1 % (0.9-11.2); Mean Corpuscular HGB Conc 30.6 g/dl (32-36); Mean Corpuscular Volume 84.8 fl (80-100); Mean Platelet Volume 11.6 fl (7.4-10.4); Platelet Count Result 124 k/mm3 (150-375); Red Blood Count 3.35 M/mm3 (4.2-5.4); Red Cell Distribution Width 15.2 % (11.5-14.5); White Blood Count 7.7 K/mm3 (4.5-10.0)
[2023-02-18 05:49] LABS: Anion Gap 7 mmol/L (8-16); Blood Urea Nitrogen 22 mg/dL (7-17); Calcium 9.4 mg/dL (8.4-10.2); Carbon Dioxide 26 mmol/L (22-30); Chloride 105 mmol/L (98-107); Estimated CRCL calculation 35 ml/min; Estimated Glomerular Filt Rate > 60; Glucose 100 mg/dL (65-110); Magnesium 1.6 mg/dL (1.6-2.3); Potassium 3.6 mmol/L (3.4-5.0); Sodium 138 mmol/L (137-145)
[2023-02-18 05:59] VITALS: BP 145/51; PULSE 66; RESP 18; TEMP 36.7; O2SAT 96
[2023-02-18] MEDS: ENOXAPARIN 40 MG/0.4 ML SYRINGE SUB-Q (10:13)
[2023-02-18] MEDS: CYANOCOBALAMIN 1,000 MCG TABLET 1000 MCG PO (10:13)
[2023-02-18] MEDS: LORATADINE 10 MG TABLET PO (10:13)
[2023-02-18] MEDS: MORPHINE SULFATE (*CRX) 2 MG/ML INJ IV PUSH (10:27)
[2023-02-18 13:52] VITALS: BMI 11.0
[2023-02-18 14:00] VITALS: BP 138/58; PULSE 66; RESP 18; TEMP 36.5; O2SAT 97
--- NOTE | 2023-02-18 14:30 | PC.NURSE ---
On 02/18/23, the student, [Melodie Charlton], provided care and completed [employer] documentation on this patient. I have reviewed the student's documentation and agree with the findings.
--- NOTE | 2023-02-18 14:47 | PM.IMPN ---
Progress Note: A&P Assessment and Plan (1) Fracture of surgical neck of right humerus: Qualifiers: Encounter type: initial encounter Fracture type: closed Fracture morphology: 2-part Fracture alignment: displaced Qualified Code(s): S42.221A - 2-part displaced fracture of surgical neck of right humerus, initial encounter for closed fracture Code(s): S42.211A - Unspecified displaced fracture of surgical neck of right humerus, initial encounter for closed fracture Status: Acute Plan Proximal humerus fracture. appreciate ortho recommendations. pending acceptance to SNF for rehab. pain is well controlled neurovascular intact. full code lovenox for DVT prophylaxis Subjective Date/time seen: 02/18/23 14:47 Interval history: NAOE. pt has flat affect today, related to her dementia likely. she can not produce complaints. Review of Systems Review of Systems: All systems reviewed & are unremarkable except as noted in HPI and below Exam Const: General: comfortable and no acute distress Other: A&Ox1 Eyes: Pupils: Equal, round and reactive pupils present Resp: Effort & Inspection: normal respiratory effort Auscultation: clear to auscultation bilaterally Cardio: Rate: regular rate Rhythm: regular rhythm GI: GI Palp: Yes Soft to palpation Objective Data Vital Signs Vital Signs: Vital Signs - 24 hr 02/17/23 20:52 02/17/23 20:00 02/18/23 05:59 Temperature 100.3 F H 98.0 F Pulse Rate 101 H 101 H 66 Respiratory Rate 18 18 18 Blood Pressure 160/63 H 145/51 H Pulse Oximetry 98 98 96 Oxygen Delivery Room Air 02/18/23 08:00 02/18/23 11:46 Temperature Pulse Rate Respiratory Rate Blood Pressure Pulse Oximetry Oxygen Delivery Room Air Room Air Intake/Output Intake/Output: Intake & Output 02/15/23 02/16/23 02/17/23 02/18/23 23:59 23:59 23:59 23:59 Intake Total 800 600 Output Total 850 2000 Balance -50 -1400 Meds/Results Medications: Active Medications Generic Name Dose Route Start Last Admin Trade Name Freq PRN Reason Stop Dose Admin Acetaminophen 650 mg 02/16/23 20:37 Acetaminophen 325 Mg Tablet PO Q6H PRN Mild Pain (1-3) or Fever Cyanocobalamin 1,000 mcg 02/17/23 09:00 02/18/23 10:13 Cyanocobalamin 1,000 Mcg Tablet PO 1,000 mcg QAM HENNA Administration Donepezil HCl 5 mg 02/16/23 21:00 02/17/23 20:49 Donepezil Hcl 5 Mg Tablet BY MOUTH 5 mg HS HENNA Administration Enoxaparin Sodium 40 mg 02/18/23 09:00 02/18/23 10:13 Enoxaparin 40 Mg/0.4 Ml Syringe SUB-Q 40 mg DAILY HENNA Administration Loratadine 10 mg 02/17/23 09:00 02/18/23 10:13 Loratadine 10 Mg Tablet PO 10 mg QAM HENNA Administration Memantine 5 mg 02/16/23 21:00 02/17/23 20:49 Memantine 5 Mg Tablet PO 5 mg HS HENNA Administration Miconazole Nitrate 1 applic 02/17/23 09:00 02/18/23 10:14 Miconazole 2% Antifungal Ointment 56 Gm TOPICAL 1 applic Q12HR HENNA Administration Morphine Sulfate 2 mg 02/17/23 03:29 02/18/23 10:27 Morphine Sulfate (*Crx) 2 Mg/Ml Inj IV PUSH 2 mg Q2H PRN Administration Pain Rated 7-10 Ondansetron HCl 4 mg 02/16/23 12:51 Ondansetron Inj 4 Mg/2 Ml Vial IV PUSH Q4H PRN Nausea Pravastatin Sodium 40 mg 02/16/23 21:00 02/17/23 20:49 Pravastatin Sodium 20 Mg Tablet PO 40 mg HS HENNA Administration Radiology Results: ITS Impressions Shoulder X-Ray 02/16/23 08:52 Impression: 1: Comminuted displaced right humeral neck fracture. Hand X-Ray 02/16/23 08:53 Impression: 1: No acute fracture. Head CT 02/16/23 12:03 IMPRESSION: 1. 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 Cervical Spine CT 02/16/23 12:16 IMPRESSION: 1. No acute abnormality of the cervical spine. Chest X-Ray 02/16/23 21:19 IMPRESSION: No acute cardiopulmonary process. Labs Labs: Laboratory Results
--- NOTE | 2023-02-18 14:49 | PCDIET ---
BMI: 18.5 underweight. Patient is tolerating diet-eating 100% of meals. Agree with diet orders at this time. Please consult if needing further interventions.
--- NOTE | 2023-02-18 15:10 | PM.DS ---
DS: Admitting Diagnosis Discharge Date 02/18/23 Admitting Diagnosis fall at home DS: Discharge Diagnosis Discharge Diagnosis (1) Fracture of surgical neck of right humerus: Qualifiers: Encounter type: initial encounter Fracture type: closed Fracture morphology: 2-part Fracture alignment: displaced Qualified Code(s): S42.221A - 2-part displaced fracture of surgical neck of right humerus, initial encounter for closed fracture Code(s): S42.211A - Unspecified displaced fracture of surgical neck of right humerus, initial encounter for closed fracture Status: Acute DS: Summary Hospital Course Hospital Course: pt admitted after fall at home. ct head without acute abnormality. she has history of CVA, but does not want to take aspirin. she continues taking pravastatin. shoulder x ray demonstrated displaced proximal humerus fracture. discussion with ortho and family concluded she is a high risk candidate and will be managed conservatively. f/u x ray in 2 weeks. f/u in [address] Brennan. she is being dc to SNF for rehab on 02/18 in stable condition and shoulder immobilizer Time Spent with Patient Time attestation: Total time spent providing and/or coordinating discharge services: Exam Const: General: comfortable and no acute distress Other: pleasantly confused Eyes: Pupils: Equal, round and reactive pupils present Neck: Neck: supple Resp: Effort & Inspection: normal respiratory effort Auscultation: clear to auscultation bilaterally Cardio: Rate: regular rate Rhythm: regular rhythm Heart sounds: no gallops, no murmurs and no rubs GI: GI Palp: Yes Soft to palpation DS: Data Data Completed and Pending Labs on day of discharge: Labs from last 24 hours 02/18/23 05:25 WBC 7.7 RBC 3.35 L Hgb 8.7 L Hct 28.4 L MCV 84.8 MCH 26.0 MCHC 30.6 L RDW 15.2 H Plt Count 124 L MPV 11.6 H % Immature Plt Fraction 5.1 Sodium 138 Potassium 3.6 Chloride 105 Carbon Dioxide 26 Anion Gap 7 L BUN 22 H Creatinine 0.80 Estim Creat Clear Calc 35 Estimated GFR > 60 Glucose 100 Calcium 9.4 Magnesium 1.6 Discharge Plan Discharge Attending physician on discharge: Cindy Moreira Consulting providers: Olivier Brennan Discharging Clinician: Cindy Moreira Patient Disposition: SNF Activity: may shower Diet: as tolerated Discharge Instructions: follow up x ray in 2 weeks right shoulder. follow up with Dr. Brennan ortho in 6 weeks use shoulder immobilizer for 4 weeks with concurrent PT with gentle elbow wrist and hand activity, then shoulder ROM exercises after 4 weeks. use walker to mobilize. Stand Alone Forms: General Discharge Information Follow-up/Referrals: Todd,DO Bernardo [Primary Care Provider] - Olivier Brennan MD [Physician] - 6 Weeks Discharge Medications: New acetaminophen 500 mg capsule 500 mg PO Q6H PRN (Reason: pain) Qty: 60 0RF Continued memantine [Namenda] 5 mg tablet 5 mg PO HS pravastatin 40 mg tablet 40 mg PO HS AZO [employer] [address] PO DA[address] 30 mg Tablet 30 mg PO DAILY cyanocobalamin (vitamin B-12) 1 tablet PO DAILY donepezil 5 mg tablet See Rx Instructions .ROUTE .COMPLEX Qty: 30 2RF Dose Instruction: TAKE 1 TABLET BY MOUTH AT BEDTIME Rx Instructions: TAKE 1 TABLET BY MOUTH AT BEDTIME Date of admission: 02/16/23 12:51 Primary Care Provider: Todd,Bernardo Admitting Provider: Irma Gregory Attending physician on admission: Irma Gregory Condition: Stable
[2023-02-18 16:21] LABS: SARS-CoV-2 RNA PCR Positive (Negative)
[2023-02-18 20:00] VITALS: PULSE 102; RESP 18; O2SAT 94
[2023-02-18] MEDS: MEMANTINE 5 MG TABLET PO (21:34)
[2023-02-18] MEDS: PRAVASTATIN SODIUM 20 MG TABLET 40 MG PO (21:35)
[2023-02-18] MEDS: DONEPEZIL HCL 5 MG TABLET BY MOUTH (21:35)
[2023-02-18 21:40] VITALS: BP 151/64; PULSE 102; RESP 18; TEMP 37.1; O2SAT 94
[2023-02-19 04:46] VITALS: BP 135/50; PULSE 68; RESP 18; TEMP 36; O2SAT 95
--- NOTE | 2023-02-19 08:20 | PM.IMPN ---
Progress Note: A&P Assessment and Plan (1) Fracture of surgical neck of right humerus: Qualifiers: Encounter type: initial encounter Fracture alignment: displaced Fracture morphology: 2-part Fracture type: closed Qualified Code(s): S42.221A - 2-part displaced fracture of surgical neck of right humerus, initial encounter for closed fracture Code(s): S42.211A - Unspecified displaced fracture of surgical neck of right humerus, initial encounter for closed fracture Status: Acute (2) COVID-19: Code(s): U07.1 - COVID-19 Status: Acute (3) Anemia: Code(s): D64.9 - Anemia, unspecified Status: Acute (4) Dehydration: Code(s): E86.0 - Dehydration Status: Acute (5) Dementia: Code(s): F03.90 - Unspecified dementia, unspecified severity, without behavioral disturbance, psychotic disturbance, mood disturbance, and anxiety Status: Acute (6) Fall: Code(s): W19.XXXA - Unspecified fall, initial encounter Status: Acute Plan Proximal humerus fracture. appreciate ortho recommendations. acceptance to SNF for rehab. pain is well controlled neurovascular intact. Dementia F03.90 - Unspecified dementia, unspecified severity, without behavioral disturbance, psychotic disturbance, mood disturbance, and anxiety Dehydration Elevated BUN creatinine ratio above 20, dry mucous membrane, due to poor intake Received gentle normal saline IV Chronic anemia Hemoglobin close to baseline No obvious bleeding Follow-up CBC, follow iron panel ferritin COVID-19 infection X-ray shows no acute cardiopulmonary issue Patient is not on oxygen, No need antiviral medication now ? lovenox for DVT prophylaxis Subjective Date/time seen: 02/19/23 08:20 Interval history: Patient was saw and examined no new issue even overnight, pain is tolerable Exam Narrative: General: Frail elderly female sitting up in bed. Weight: 56.7 kg. BMI: 22.9. HEENT: Normocephalic, atraumatic. PERRL, EOMI. Sclera anicteric. Conjunctiva mildly injected. Tacky mucous membranes. Neck: Supple. Respiratory: Lungs are clear to auscultation bilaterally. Cardiovascular: Regular rate and rhythm with S1-S2. Gastrointestinal: Abdomen is soft, nontender, and nondistended with positive bowel sounds. Skin: Warm and dry. Bruising on the dorsum of the right hand. Musculoskeletal: Mild deformity of the right upper arm. She complains of pain with palpation of the area. Arm is immobilized. She is neurovascularly intact distal to the fracture. Extremities: No cyanosis, clubbing, or edema. Radial and pedal pulses intact. Neurological: Alert. Cranial nerves 2-12 are grossly intact. Speech is clear. No facial asymmetry. No obvious gross focal deficits. Psychiatric: Pleasantly confused and cooperative. Objective Data Vital Signs Vital Signs: Vital Signs - 24 hr 02/18/23 11:46 02/18/23 14:00 02/18/23 17:00 Temperature 97.7 F Pulse Rate 66 Respiratory Rate 18 Blood Pressure 138/58 L Pulse Oximetry 97 Oxygen Delivery Room Air Room Air 02/18/23 21:40 02/18/23 20:00 02/19/23 04:46 Temperature 98.7 F 96.8 F L Pulse Rate 102 H 102 H 68 Respiratory Rate 18 18 18 Blood Pressure 151/64 H 135/50 L Pulse Oximetry 94 94 95 Oxygen Delivery Room Air Intake/Output Intake/Output: Intake & Output 02/16/23 02/17/23 02/18/23 02/19/23 23:59 23:59 23:59 23:59 Intake Total 800 840 120 Output Total 850 2350 250 Balance -50 -1510 -130 Meds/Results Medications: Active Medications Generic Name Dose Route Start Last Admin Trade Name Freq PRN Reason Stop Dose Admin Acetaminophen 650 mg 02/16/23 20:37 Acetaminophen 325 Mg Tablet PO Q6H PRN Mild Pain (1-3) or Fever Cyanocobalamin 1,000 mcg 02/17/23 09:00 02/18/23 10:13 Cyanocobalamin 1,000 Mcg Tablet PO 1,000 mcg QAM HENNA Administration Donepezil HCl 5 mg 02/16/23 21:00 1
[2023-02-19] MEDS: ENOXAPARIN 40 MG/0.4 ML SYRINGE SUB-Q (08:23)
[2023-02-19] MEDS: CYANOCOBALAMIN 1,000 MCG TABLET 1000 MCG PO (08:23)
[2023-02-19] MEDS: LORATADINE 10 MG TABLET PO (08:23)
[2023-02-19] MEDS: SODIUM CHLORIDE 0.9% IV 1,000 ML 75 ML IV CONT (08:51)
[2023-02-19 09:02] LABS: Basophils Percent Auto 0.4 % (0.2-1.2); Eosinophils Percent Auto 0.6 % (0-4.4); Hematocrit 28.8 % (37.0-47.0); Hemoglobin 9.1 g/dL (12.0-15.0); Immature Granulocyte Absolute 0.02 K/mm3 (0.00-0.031); Immature Granulocyte Percent A 0.3 % (0-0.5); Immature Reticulocyte Fraction 14.5 % (3.0-15.9); Lymphocytes Absolute Auto 2.48 K/mm3 (0.9-3.2); Lymphocytes Percent Auto 35.7 % (18.3-44.2); Mean Corpuscular HGB Conc 31.6 g/dl (32-36); Mean Corpuscular Hemoglobin 26.6 pg (26-34); Mean Corpuscular Volume 84.2 fl (80-100); Mean Platelet Volume 11.7 fl (7.4-10.4); Monocytes Absolute Auto 0.5 K/mm3 (0.1-0.6); Monocytes Percent Auto 6.8 % (2.6-8.5); Neutrophils Absolute Auto 3.9 K/mm3 (1.3-6.7); Neutrophils Percent Auto 56.2 % (45.5-73.1); Platelet Count Result 143 k/mm3 (150-375); Red Blood Count 3.42 M/mm3 (4.2-5.4); Red Cell Distribution Width 14.9 % (11.5-14.5); Reticulocyte Percent 1.51 % (0.7-4.3); Reticulocytes Absolute 0.05 M/mm3 (0.02-0.1); White Blood Count 6.9 K/mm3 (4.5-10.0)
[2023-02-19 09:11] LABS: Anion Gap 6 mmol/L (8-16); Blood Urea Nitrogen 19 mg/dL (7-17); Calcium 9.2 mg/dL (8.4-10.2); Carbon Dioxide 27 mmol/L (22-30); Chloride 102 mmol/L (98-107); Estimated CRCL calculation 38 ml/min; Estimated Glomerular Filt Rate > 60; Glucose 104 mg/dL (65-110); Potassium 3.8 mmol/L (3.4-5.0); Sodium 135 mmol/L (137-145)
[2023-02-19 09:46] LABS: Iron 22 ug/dL (37-170)
[2023-02-19 09:56] LABS: Percent Iron Saturation 12 % (20-50)
--- NOTE | 2023-02-19 13:22 | PM.DS ---
DS: Admitting Diagnosis Discharge Date 02/19/23 Admitting Diagnosis (1) Fracture of surgical neck of right humerus: ?Qualifiers: ?Encounter type:?initial encounter??Fracture alignment:?displaced??Fracture morphology:?2-part??Fracture type:?closed? Qualified Code(s):?S42.221A - 2-part displaced fracture of surgical neck of right humerus, initial encounter for closed fracture ?Code(s): S42.211A - Unspecified displaced fracture of surgical neck of right humerus, initial encounter for closed fracture ?Status:?Acute (2) COVID-19: ?Code(s): U07.1 - COVID-19 ?Status:?Acute (3) Anemia: ?Code(s): D64.9 - Anemia, unspecified ?Status:?Acute (4) Dehydration: ?Code(s): E86.0 - Dehydration ?Status:?Acute (5) Dementia: ?Code(s): F03.90 - Unspecified dementia, unspecified severity, without behavioral disturbance, psychotic disturbance, mood disturbance, and anxiety ?Status:?Acute (6) Fall: ?Code(s): W19.XXXA - Unspecified fall, initial encounter ?Status:?Acute DS: Discharge Diagnosis Discharge Diagnosis (1) Fracture of surgical neck of right humerus: Qualifiers: Encounter type: initial encounter Fracture type: closed Fracture morphology: 2-part Fracture alignment: displaced Qualified Code(s): S42.221A - 2-part displaced fracture of surgical neck of right humerus, initial encounter for closed fracture Code(s): S42.211A - Unspecified displaced fracture of surgical neck of right humerus, initial encounter for closed fracture Status: Acute (2) COVID-19: Code(s): U07.1 - COVID-19 Status: Acute (3) Anemia: Code(s): D64.9 - Anemia, unspecified Status: Acute (4) Dehydration: Code(s): E86.0 - Dehydration Status: Acute (5) Dementia: Code(s): F03.90 - Unspecified dementia, unspecified severity, without behavioral disturbance, psychotic disturbance, mood disturbance, and anxiety Status: Acute (6) Fall: Code(s): W19.XXXA - Unspecified fall, initial encounter Status: Acute Plan ? DS: Summary Hospital Course Hospital Course: 87 years old white female with as? Alzheimer's dementia lives at home with her family.? She is feeling weak, tired and fatigued with an altered mental status for the last 2 days. ? According to her daughter, patient fell to her knees but did not hit her head and was more lethargic than usual and more confused today.? Patient was brought to the ER for evaluation, workup was done which showed UTI and dehydration.? She was started on IV antibiotics and IV fluids and feels a little better.? She is being admitted for medical management and? close monitoring. The following medical issues have been addressed during hospitalization Proximal humerus fracture. appreciate ortho recommendations. acceptance to SNF for rehab. pain is well controlled neurovascular intact. Dementia F03.90 - Unspecified dementia, unspecified severity, without behavioral disturbance, psychotic disturbance, mood disturbance, and anxiety Dehydration Elevated BUN creatinine ratio above 20, dry mucous membrane, due to poor intake Received gentle normal saline IV Chronic anemia Hemoglobin close to baseline No obvious bleeding Follow-up CBC, follow iron panel ferritin COVID-19 infection X-ray shows no acute cardiopulmonary issue Patient is not on oxygen, No need antiviral medication now Time Spent with Patient Time attestation: Total time spent providing and/or coordinating discharge services: Exam Narrative: General: Frail elderly female sitting up in bed. Weight: 56.7 kg. BMI: 22.9. HEENT: Normocephalic, atraumatic. PERRL, EOMI. Sclera anicteric. Conjunctiva mildly injected. Tacky mucous membranes. Neck: Supple. Respiratory: Lungs are clear to auscultation bilaterally. Cardiovascular: Regular rate and rhythm with S1-S2. Gastrointestinal: Abdomen
[2023-02-19 15:29] VITALS: BP 162/68; PULSE 82; O2SAT 97
== END 2023-02-19 15:30 ==
LOC: ANHED 11:01 → ANH2MED 02-18 11:39
PROVIDERS: General Practice; Physician Assistant; Admitting Provider Student in an Organized Health Care Education/Training Program; Emergency Provider Emergency Medicine; PCP Student in an Organized Health Care Education/Training Program; Visit Provider Hospitalist
DX: S42.221A 2-part displaced fracture of surgical neck of right humerus, initial encounter for closed fracture (principal); S60.221A Contusion of right hand, initial encounter; M54.2 Cervicalgia; W06.XXXA Fall from bed, initial encounter; Y93.9 Activity, unspecified; U07.1 COVID-19; R41.3 Other amnesia; Y92.009 Unspecified place in unspecified non-institutional (private) residence as the place of occurrence of the external cause; D72.829 Elevated white blood cell count, unspecified; N28.9 Disorder of kidney and ureter, unspecified; D64.9 Anemia, unspecified; E86.0 Dehydration; G30.9 Alzheimer's disease, unspecified; F02.80 Dementia in other diseases classified elsewhere, unspecified severity, without behavioral disturbance, psychotic disturbance, mood disturbance, and anxiety; I10 Essential (primary) hypertension; E78.5 Hyperlipidemia, unspecified; Z79.899 Other long term (current) drug therapy; Z86.73 Personal history of transient ischemic attack (TIA), and cerebral infarction without residual deficits; Z87.891 Personal history of nicotine dependence; Z82.3 Family history of stroke
CPT/HCPCS: 36415; 70450; 71045; 72125; 73030; 73130; 80048; 80053; 81001; 82550; 82728; 83540; 83550; 83735; 85025; 85027; 85046; 85055; 85610; 85730; 87635; 96372; 96374; 96376; 97161; 97167; 97535; 99285; A9270; G0378; J1650; J2270; J7030